=== PATIENT | male | born 1950 | race Caucasian/White ===

== ENCOUNTER 2016-09-04 14:46 | Emergency (ER) | payer OTHER, MEDICARE ==
[~2016-09-04] VITALS: Ht 175.3 cm; Wt 68.8 kg
[~2016-09-04 14:46] MED LIST: ASPEC325; DLN100; IBUP-1050; SODIUM CHLORIDE PO; VGR50
[2016-09-04 15:04] VITALS: TEMP 36.7; Ht 175.3 cm; Wt 68.8 kg
[2016-09-04] MEDS ORDERED: OXYCODONE HCL IR 5 MG TAB (IMMEDIATE RELEASE) PO STA (15:13)
[2016-09-04] MEDS ORDERED: DLN100 PO (15:45)
--- NOTE | 2016-09-04 15:46 | DIAGNOSTIC IMAGING REPORT ---
LEFT FOOT MIN 3 VIEWS ROUTINE CLINICAL HISTORY: Left foot pain status post trauma COMPARISON: September 2007 DISCUSSION: The bones are osteopenic. There are no acute fractures. There is minor chronic medial translation of the proximal phalanx of the great toe with respect to the first metatarsal. There are no erosive changes. IMPRESSION: No acute fractures. Mild chronic varus deformity at the level of the first metatarsal phalangeal joint Electronically signed by: Obie Pulido M.D. 09/04/2016 3:44 PM
[2016-09-04] MEDS ORDERED: VITATAB11 PO (15:47)
[2016-09-04] MEDS ORDERED: ATOR10TA82 PO (15:50)
[2016-09-04] MEDS ORDERED: VTMD PO (15:51)
--- NOTE | 2016-09-04 16:01 | EMERGENCY ROOM VISIT NOTE ---
History First contact with patient: 15:09 Chief Complaint: FOOT PAIN Stated Complaint: LT FOOT PAIN History of Present Illness The patient is a 66 year old male who presents to the Emergency Room with complaints of left lateral foot pain after slipping on ice and falling. The injury happened this morning, and the patient reports persistent pain, bruising and swelling. The patient has a prior history of left clubfoot and has undergone multiple surgeries. He denies any other injuries to his knee, hip or back. He denies hitting his head. He rates his discomfort a 5 out of 10 with weightbearing. Review of Systems 10 system review was performed and was negative except for pertinent positives and negatives as indicated in history of present illness Past Medical/Surgical History Medical Problems: (1) Clubfoot, congenital (2) Patellar dislocation (3) Peyronie's Disease Surgical Problems: (1) H/O clubfoot correction Family History Unremarkable Social History Smoking Status: Never Smoker Alcohol Use: occasionally Marital Status: Occupation Status: retired Current/Historical Medications Scheduled Atorvastatin (Lipitor), Unknown Dose PO DAILY Ergocalciferol (Vitamin D), 50,000 INTER.UNIT PO WK Phenytoin Sodium (Dilantin), 3 CAP PO BID Vitamins W/ Lipotropics (Lipoflavonoid), 1 TAB PO BID [Sodium Chloride], 2 GM PO BID Miscellaneous Medications Sildenafil Citrate (Viagra) Allergies Coded Allergies: No Known Allergies (Verified , 09/04/16) Physical Exam Vital Signs Date Time Temp Pulse Resp B/P Pulse Ox O2 Delivery O2 Flow Rate FiO2 09/04/16 15:04 36.7 95 20 111/63 97 Room Air Physical Exam CONSTITUTIONAL: Healthy and well nourished. Alert and oriented X 3 with positive affect. She does not appear in any acute distress. HEENT: Normocephalic, atraumatic. Pupils equal, round and reactive. NECK: Full active range of motion without discomfort. MUSCULOSKELETAL: Examination of the left foot shows lateral edema. He has tenderness over the base of the fifth metatarsal and lateral calcaneal region. No tenderness to palpation of the Achilles tendon, dorsal midfoot or remaining metatarsals/phalanges. Pedal pulses are intact.. Negative anterior draw. INTEGUMENTARY: No rash or other significant dermatologic conditions noted. NEUROLOGIC: Left foot and toes are sensory intact. Medical Decision & Procedures ER Provider Diagnostic Interpretation: My interpretation of left foot x-rays does not show any acute fractures or dislocations. Radiologist report is as follows: LEFT FOOT MIN 3 VIEWS ROUTINE CLINICAL HISTORY: Left foot pain status post trauma COMPARISON: September 2007 DISCUSSION: The bones are osteopenic. There are no acute fractures. There is minor chronic medial translation of the proximal phalanx of the great toe with respect to the first metatarsal. There are no erosive changes. IMPRESSION: No acute fractures. Mild chronic varus deformity at the level of the first metatarsal phalangeal joint Medications Administered Medications (Trade) Dose Ordered Sig/Heidi Route Start Time Stop Time Status Last Admin Dose Admin Oxycodone HCl (Roxicodone Immediate Rel Tab) 5 mg NOW STAT PO 09/04/16 15:13 09/04/16 15:15 DC 09/04/16 15:42 5 MG ED Course Patient history and physical exam were performed. Nurse's notes were reviewed. The patient was administered OxyIR 5 mg for pain. An ice pack was also applied. X-rays of the left foot were normal. The patient was encouraged to intermittently apply ice and elevate the foot for swelling and pain. Ibuprofen and Tylenol in alternating fashion as needed for additional baseline pain relief. The patient also has crutches with him as well, and was encouraged to use the crutches as needed to avoid limping. He was instructed to follow-up with orthopedics if symptoms are not improving within the next week. The patient was happy with plan of care, voice understanding of all discharge instructions, and rated his pain a 4 out of 10 at the time of discharge. The patient was also seen and examined by Dr. Vance, ED attending physician, who agrees with workup and plan of care. Impression Primary Impression: Strain of left foot Additional Impression: Fall due to slipping on ice or snow Departure Information Referrals Johnnie Vásquez III, M.D. (PCP) Patient Instructions A Signature Page, My [facility]
[2016-09-04 16:06] VITALS: BP 109/67; PULSE 90; O2SAT 97
== END 2016-09-04 16:08 | disposition home or self-care (01) ==
LOC: C.EDB 14:47 → C.EDD 16:08
DX: S96.912A Strain of unspecified muscle and tendon at ankle and foot level, left foot, initial encounter (principal); W00.0XXA Fall on same level due to ice and snow, initial encounter; Z79.899 Other long term (current) drug therapy

== ENCOUNTER 2020-10-13 16:36 | Inpatient (IN) ==
[2020-10-13] MEDS ORDERED: MoRPHine SULFATE 2 MG/ML CARP IV PRN (16:51)
--- NOTE | 2020-10-13 16:57 | Emergency Department Note ---
History of Present Illness General Chief Complaint: Fall Stated Complaint: FALL, L HIP PAIN Time Seen by Provider: 10/13/20 16:47 Source: patient Mode of arrival: EMS Limitations: no limitations History of Present Illness Provider complaint: fall This is a 70-year-old male who presents to the ED after a fall. The patient states that he was carrying a bucket filled with jesus manuel litter up the basement steps when he lost his balance and fell backwards down a few of the steps. He states that he landed on his buttock region and hurt his left hip. He denies loss of consciousness or hitting his head. He denies any neck or back pains. No chest pains. No other extremity pains. Only complains of left hip pain. H is pain is worse with movement. He was transported by EMS and IV fentanyl was given and this helped his symptoms somewhat. Home Medications Medication Instructions Recorded Confirmed Type Sildenafil Citrate (Viagra) #0 08/20/06 History SODIUM CHLORIDE 2 g PO BID #0 08/29/06 History ATORVASTATIN (LIPITOR) PO DAILY 90 Days #0 tab 09/04/16 History Ergocalciferol (Vitamin D) 50,000 inter.unit PO WK #0 09/04/16 History Phenytoin Sodium (Dilantin) 3 cap PO BID 30 Days #180 cap 09/04/16 History VITAMINS W/ LIPOTROPICS 1 tab PO BID #0 09/04/16 History (LIPOFLAVONOID) Allergies Allergy/AdvReac Type Severity Reaction Status Date / Time No Known Allergies Allergy Unknown Verified 09/04/16 15:43 Past Med/Surg History Social History Smoking Status: Current every day smoker Feels Safe at Home: Yes Review of Systems A total of 10 systems reviewed and were otherwise negative Physical Exam Vital Signs Vital Signs - 24 hr 10/13/20 16:44 Temperature 36.6 C Temperature Source Oral Pulse Rate 80 Respiratory Rate 18 Blood Pressure 118/83 Blood Pressure Mean 94 Pulse Oximetry 96 Oxygen Delivery Method Room Air Sepsis Recent Fever Within 48 Hours No Sepsis New/Unexplained Change in Mental Status No Sepsis Action Taken by Nursing No Action Required CONSTITUTIONAL/VITAL SIGNS: Reviewed / noted above. GENERAL: Non-toxic in appearance. INTEGUMENTARY: Warm, dry, and [place]. HEAD: Normocephalic. EYES: without scleral icterus or trauma. ENT/OROPHARYNX: clear and moist. LYMPHADENOPATHY/NECK: Is supple without lymphadenopathy or meningismus. RESPIRATORY: Lungs clear and equal. CARDIOVASCULAR: Regular rate and rhythm. GI/ABDOMEN: Soft and nontender. No organomegaly or pulsatile mass. No rebound or guarding. Normal bowel sounds. EXTREMITIES: Warm and well perfused. No shortening or rotation of the left lower extremity but there is discomfort in the left hip with movement. BACK: No CVA tenderness. NEUROLOGICAL: Intact without focal deficits. PSYCHIATRIC: normal affect. MUSCULOSKELETAL: Normally developed with good muscle tone. TRIAGE NURSING DOCUMENTATION REVIEWED. Medical Decision Making Differential Diagnosis Differential includes close head injury, intracranial bleed, facial trauma, cervical spine trauma, chest and thoracic trauma, abdominal and intra-abdominal trauma, spine neurologic trauma, extremity trauma. Medical Records Attestation: I reviewed the patient's medical records. Home Medications Current Medication List: was personally reviewed by me Laboratory Data Attestation: I reviewed the patient's lab results. Result diagrams: 10/13/20 17:00 10/13/20 17:00 Lab Results 10/13/20 10/13/20 10/13/20 Range/Units 17:00 17:00 17:00 WBC 10.37 (4.8-10.8) K/uL RBC 4.18 L (4.7-6.1) M/uL Hgb 13.3 L (14.0-18.0) g/dL Hct 38.0 L (42-52) % MCV 90.9 (80-100) fL MCH 31.8 (25-34) pg MCHC 35.0 (32-36) g/dL RDW Std Deviation 41.7 (36.4-46.3) fL RDW Coeff of Nnamdi 12.5 (11.5-14.5) % Plt Count 166 (130-400) K/uL MPV 8.2 (7.4-10.4) fL Immature Gran % (Auto) 0.3 % Neut % (Auto) 69.9 % Lymph % (Auto) 20.8 % Jay % (Auto) 5.7 % Eos % (Auto) 3.1 % Baso % (Auto) 0.2 % Neut # (Auto) 7.25 H (1.4-6.5) K/uL Lymph # (Auto) 2.16 (1.2-3.4) K/uL Jay # (Auto) 0.59 (0.11-0.59) K/uL Eos # (Auto) 0.32 (0-0.5) K/uL Baso # (Auto) 0.02 (0-0.2) K/uL Immature Gran # (Auto) 0.03 H (0.00-0.02) K/uL PT 10.2 (9.0-12.0) Seconds INR 1.0 (0.9-1.1) APTT 26.0 (21.0-31.0) Seconds PTT Ratio 1.0 Sodium 139 (136-145) mmol/L Potassium 3.4 L (3.5-5.1) mmol/L Chloride 105 (98-107) mmol/L Carbon Dioxide 26 (21-32) mmol/L Anion Gap 8.0 (3-11) BUN 9 (7-18) mg/dl Creatinine 0.69 (0.6-1.4) mg/dl Est Cr Clr Drug Dosing 101.0 ml/min Est GFR ( Amer) 112.3 Est GFR (Non-Af Amer) 96.9 BUN/Creatinine Ratio 13.6 (10-20) Glucose 94 (70-99) mg/dl Calcium 8.2 L (8.5-10.1) mg/dl Imaging Data Radiologist's Impression: XR hip LT min 2V CLINICAL HISTORY: Fall. Left hip pain. COMPARISON STUDY: None. FINDINGS: Nondisplaced intertrochanteric fracture within the proximal left femur. The visualized pelvic bones are intact. No dislocation. IMPRESSION: Nondisplaced intertrochanteric fracture within the proximal left femur. XR chest 1V portable HISTORY: Fall. Left hip injury. COMPARISON: None. FINDINGS: There are low lung volumes. No pneumothorax. No pleural effusions. The heart is normal in size. There is mild diffuse interstitial thickening. This may be chronic. Small linear scarlike density within the left midlung zone. No evidence for pulmonary edema. No focal lung consolidations to suggest pneumonia. A 5 mm nodular density within the right midlung zone favors a calcified granuloma given the density. Slight mediastinal prominence is likely due to the AP portable technique. IMPRESSION: Low lung volumes with mild diffuse interstitial thickening. This could be due to the low lung volumes or represent mild chronic change. ECG Data Attestation: I personally reviewed and interpreted this ECG as follows: Indication: other (Hip fx) Rate (beats per minute): 65 Rhythm: sinus with SA Findings: no PVC, no ST elevation and no prolonged QT MDM Narrative Patient presents with left hip injury after fall. Details listed above. Vital signs are stable. The patient's x-ray shows a nondisplaced intertrochanteric left hip fracture. EKG shows sinus rhythm. Chest x-ray was clear. CBC and chemistry panel did not show acute process. The patient will be seen by the hospitalist for further inpatient evaluation and care. Impression & Plan Closed hip fracture Discharge Plan Visit Data Chief Complaint: Fall Stated Complaint: FALL, L HIP PAIN ED Provider: Wade Crawford Discharge Problem: Closed hip fracture Patient Disposition: Being Evaluated by Hospitalist Forms Stand Alone Forms: My [facility] [employer] ([employer]) Prescriptions Prescriptions: No Action Sildenafil Citrate (Viagra) 50 MG tablet Qty: 0 RF: 0 SODIUM CHLORIDE 2 2 g PO BID Qty: 0 RF: 0 Phenytoin Sodium (Dilantin) 100 MG capsule 3 cap PO BID 30 Days Qty: 180 RF: 2 VITAMINS W/ LIPOTROPICS (LIPOFLAVONOID) 1 TAB tablet 1 tab PO BID Qty: 0 RF: 0 ATORVASTATIN (LIPITOR) 10 MG tablet PO DAILY 90 Days Qty: 0 RF: 3 Ergocalciferol (Vitamin D) 50,000 INTERUNIT capsule 50,000 inter.unit PO WK Qty: 0 RF: 0 Referrals Referrals: Johnnie Vásquez MD [Primary Care Provider] - Discharge Problem: Closed hip fracture Qualifiers: Encounter type: initial encounter Laterality: left Qualified Code(s): S72.002A - Fracture of unspecified part of neck of left femur, initial encounter for closed fracture
--- NOTE | 2020-10-13 17:19 | XRay Report ---
XR hip LT min 2V CLINICAL HISTORY: Fall. Left hip pain. COMPARISON STUDY: None. FINDINGS: Nondisplaced intertrochanteric fracture within the proximal left femur. The visualized pelv ic bones are intact. No dislocation. IMPRESSION: Nondisplaced intertrochanteric fracture within the proximal left femur. ACT 112: Negative or not required by law. Electronically signed by: Willie Macdonald M.D. 10/13/2020 5:17 PM
[2020-10-13 17:21] LABS: Basophils # (auto) 0.02 K/uL (0-0.2); Basophils % (auto) 0.2 %; Eosinophils # (auto) 0.32 K/uL (0-0.5); Eosinophils % (auto) 3.1 %; Hemoglobin 13.3 g/dL (14.0-18.0); Immature Granulocytes # (auto) 0.03 K/uL (0.00-0.02); Immature Granulocytes % (auto) 0.3 %; Lymphocytes # (auto) 2.16 K/uL (1.2-3.4); Lymphocytes % (auto) 20.8 %; Mean Corpuscular Hemoglobin 31.8 pg (25-34); Mean Corpuscular Volume 90.9 fL (80-100); Mean Platelet Volume 8.2 fL (7.4-10.4); Monocytes # (auto) 0.59 K/uL (0.11-0.59); Monocytes % (auto) 5.7 %; Neutrophils # (auto) 7.25 K/uL (1.4-6.5); Neutrophils % (auto) 69.9 %; Platelet Count 166 K/uL (130-400); RDW Coefficient of Variation 12.5 % (11.5-14.5); RDW Standard Deviation 41.7 fL (36.4-46.3); Red Blood Count 4.18 M/uL (4.7-6.1); White Blood Count 10.37 K/uL (4.8-10.8)
--- NOTE | 2020-10-13 17:21 | XRay Report ---
XR chest 1V portable HISTORY: Fall. Left hip injury. COMPARISON: None. FINDINGS: There are low lung volumes. No pneumothorax. No pleural effusions. The heart is normal in s ize. There is mild diffuse interstitial thickening. This may be chronic. Small linear scarlike densit y within the left midlung zone. No evidence for pulmonary edema. No focal lung consolidations to sugg est pneumonia. A 5 mm nodular density within the right midlung zone favors a calcified granuloma give n the density. Slight mediastinal prominence is likely due to the AP portable technique. IMPRESSION: Low lung volumes with mild diffuse interstitial thickening. This could be due to the low lung volumes or represent mild chronic change. ACT 112: Negative or not required by law. Electronically signed by: Willie Macdonald M.D. 10/13/2020 5:19 PM
[2020-10-13 17:33] LABS: Prothrombin Time 10.2 Seconds (9.0-12.0)
[2020-10-13 17:38] LABS: BUN Creatinine Ratio 13.6 (10-20); Calcium 8.2 mg/dl (8.5-10.1); Est GFR (African American) 112.3; Est GFR (Non-African American) 96.9; Potassium 3.4 mmol/L (3.5-5.1)
[2020-10-13 18:40] LABS: Magnesium 1.9 mg/dl (1.8-2.4)
--- NOTE | 2020-10-13 19:07 | History & Physical Report ---
Date of Service October 13, 2020 Assessment & Plan (1) Fracture of femur, left, closed: Pt is 70 y/o M with PMH traumatic brain injury, SIADH, HLD, seizure disorder presented to ER with c/o mechanical fall and left hip pain. XRAY:Nondisplaced intertrochanteric fracture within the proximal left femur. Bedrest NPO midnight Morphine prn pain Ortho consult, ER provider contacted AM labs (2) Seizure disorder: H/O seizure disorder. Pt reports >20 years since last seizure. Is to take Dilantin 300mg BID, however pt only takes once daily and reports taking 400mg daily. Follows with Dr Ellis and last office note stated pt been taking medication like this for long time. Obtain Dilantin level Continue Dilantin as pt has been taking for now pending Dilantin levels (3) Hypokalemia: K: 3.4. 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 See addendum History of Present Illness Chief Complaint: Fall and left Hip pain Primary Care Provider: Johnnie Vásquez MD Pt is 70 y/o M with PMH traumatic brain injury, SIADH, HLD, seizure disorder presented to ER with c/o fall and left hip pain. Prior to arrival pt was carrying 40lb bucket of cat litter up stairs and reports lost his balance and fell backwards. Denies hitting head. Denies dizziness, syncope, CP, SOB, neck pain. C/O left hip pain and was unable to ambulate after fall. Denies any other injury or complaint. Denies fever/chills, diaphoresis, N/V/D/C, UMANZOR, new vision changes, orthopnea, palpitations, cough, sore throat, choking, otalgia, rhinorrhea, abdominal pain, paresthesias, weakness, extremity edema, rashes, urinary symptoms. Allergies Allergy/AdvReac Type Severity Reaction Status Date / Time No Known Allergies Allergy Unknown Verified 10/19/20 11:18 Home Medications Medication Instructions Recorded Confirmed Type atorvastatin 80 mg PO DAILY 10/13/20 10/19/20 History cholecalciferol (vitamin D3) 25 mcg PO DAILY 10/13/20 10/19/20 History phenytoin sodium extended 400 mg PO DAILY 10/13/20 10/19/20 History [Dilantin Extended] sodium chloride 2 g PO DAILY 10/13/20 10/19/20 History vitamins-lipotropics 2 tab PO DAILY 10/13/20 10/19/20 History bisacodyl 10 mg [place] DAILY PRN #0 ea 10/17/20 10/19/20 Rx enoxaparin 40 mg SUBCUT Q24H 28 Days #0 ml 10/17/20 10/19/20 Rx docusate sodium 100 mg PO BID 10/19/20 10/19/20 History magnesium hydroxide 2,400 mg PO DAILY 10/19/20 10/19/20 History multivitamin 1 tab PO DAILY 10/19/20 10/19/20 History polyethylene glycol 3350 [Miralax] 17 g PO QDL 10/19/20 10/19/20 History sennosides-docusate sodium 1 tab-cap PO QDL 10/19/20 10/19/20 History [Senna-S] sodium phosphates [Fleet Enema] 133 ml [place] DAILY 10/19/20 10/19/20 History Past Med/Surg History Medical History (Updated 10/19/20 @ 15:28 by Veronique Reyes PA-C) History of head injury History of traumatic brain injury h/o surgery HLD (hyperlipidemia) Seizure disorder SIADH (syndrome of inappropriate ADH production) Surgical History (Updated 10/19/20 @ 15:28 by Veronique Reyes PA-C) H/O clubfoot correction History of brain surgery / to TBI after falling from 2 story building off scaffolding in 2001 repair of skull fracture, jaw, cheek, upper orbital and right ear repair Hx of nasal septoplasty Family History (Updated 10/19/20 @ 15:26 by Veronique Reyes PA-C) Mother Lung cancer Father Myocardial infarction, Onset Age: 62 Grandfather (Paternal) Myocardial infarction, Onset Age: 50 Other Cancer Coronary heart disease Social History Smoking Status: Never smoker Second Hand Exposure: No; Hx Alcohol Use: Yes Alcohol type: beer Hx Substance Use: No Preferred Language: Gren[place] Communication Ability: Effective Advertising Strategist Required: No Beliefs That Will Affect Care: None Current Living Situation: Spouse Feels Safe at Home: Yes Assistive Devices: Walker Review of Systems Review of Systems: All systems reviewed & are unremarkable except as noted in HPI & below Physical Exam Physical Exam: General: no distress, WDWN Head: normocephalic, atraumatic Eyes: Left eye PERRL, EOM's intact, Right eye: ptosis, limited EOM (chronic) conjunctiva non-injected, anicteric ENT: normal inspection external ears, nose, mucous membranes moist Neck: supple, trachea midline, non-tender, ROM intact Lungs: clear, no respiratory distress, no wheezing/rhonchi/rales CV: RRR, no murmur, no pretibial edema Abd: normal BS, soft, non-tender Ext: LLE: +left leg shortened and externally rotated, sensation to light touch intact, distal pulses intact; remaining extremities non-tender, ROM intact Neuro: A&O x 3, no focal deficits noted, normal affect Skin: warm, dry Results & Data Results & Data ([facility]) Vital Signs (Past 12 Hours) Vital Signs Temp Pulse Resp BP Pulse Ox 10/13/20 18:30 93 H 16 118/75 95 10/13/20 16:44 36.6 C 80 18 118/83 96 Laboratory Results Short CBC 10/13/20 10/13/20 Range/Units 17:00 17:00 WBC 10.37 (4.8-10.8) K/uL Hgb 13.3 L (14.0-18.0) g/dL Hct 38.0 L (42-52) % Plt Count 166 (130-400) K/uL Potassium 3.4 L (3.5-5.1) mmol/L BMP 10/13/20 17:00 Sodium 139 Potassium 3.4 L Chloride 105 Carbon Dioxide 26 BUN 9 Creatinine 0.69 Glucose 94 Calcium 8.2 L Diagnostic Findings LEFT HIP XRAY: IMPRESSION: Nondisplaced intertrochanteric fracture within the proximal left femur. CXR: IMPRESSION: Low lung volumes with mild diffuse interstitial thickening. This could be due to the low lung volumes or represent mild chronic change. Supervising Physician Co-Signing Physician Notes Pt seen and examined by me, care coordinated with Rosemary Jordan PA-C, pls refer to her note above for further detail. Pt is a 70 y/o M with PMH traumatic brain injury, SIADH, HLD, seizure disorder who presents after a fall and left hip pain. Pt fell as he was carrying 40lb bucket of cat litter up stairs and lost his balance and fell backwards. Denies hitting head. Denies dizziness, syncope, CP, SOB, neck pain. Denies fever/chills,UMANZOR. Currently pt is laying in bed in NAD, able to answer questions appropriately. Heart sounds regular, lungs CTAB. Abdomen soft, nontender, nondistended + bowel sounds. LLE shortened and externally rotated, no sensory loss, good pulses. Skin is warm, well perfused. Orthopedics service consulted for left closed hip hx repair. Closely monitor VS, AM labs. Dilantin level. Mehul Partida MD
[2020-10-13] MEDS ORDERED: POTASSIUM CHLORIDE CRTAB 20 MEQ TABCR PO STA (19:13)
[2020-10-13] MEDS ORDERED: POTASSIUM CHLORIDE 10 MEQ TABCR PO ONE (19:27)
[2020-10-13] MEDS ORDERED: ONDANSETRON INJ 2 MG/ML 2 ML VIAL IV PRN (21:14)
[2020-10-13] MEDS ORDERED: NALOXONE HCL 0.4 MG/1 ML VIAL/CARP IV PRN (21:14)
[2020-10-13] MEDS ORDERED: MAGNESIUM HYDROXIDE SUSP 30 ML UDC PO PRN (21:14)
[2020-10-13] MEDS ORDERED: bisacodyL 10 MG SUPP PR PRN (21:14)
[2020-10-13] MEDS: MoRPHine SULFATE 2 MG/ML CARP IV PRN (23:31)
[2020-10-13] MEDS: DOCUSATE SODIUM/SENNA 50/8.6MG TAB PO SCH (23:31)
[2020-10-13] MEDS: LACTATED RINGER'S 1,000 ML IV SCH (23:31)
[2020-10-14] MEDS ORDERED: ceFAZolin 2000MG 2,000 MG/15 ML SYR IV SCH (06:00)
[2020-10-14 06:22] LABS: Appearance Urine Clear (Clear); Bilirubin Urine Negative (Negative); Blood Urine Negative (Negative); Color Urine Yellow; Glucose Urine UA Negative (Negative); Ketones Urine Trace (Negative); Leukocyte Esterase Urine Negative (Negative); Nitrite Urine Negative (Negative); Protein Urine Negative (Negative); Specific Gravity Urine 1.005 (1.000-1.030); Urobilinogen Urine Negative (Negative)
[2020-10-14 06:27] LABS: Hematocrit (blood only) 36.2 % (42-52); Hemoglobin 12.7 g/dL (14.0-18.0); Mean Corpuscular Hemoglobin 31.9 pg (25-34); Mean Corpuscular Hgb Conc 35.1 g/dL (32-36); Mean Platelet Volume 8.4 fL (7.4-10.4); Platelet Count 184 K/uL (130-400); RDW Coefficient of Variation 12.6 % (11.5-14.5); RDW Standard Deviation 42.2 fL (36.4-46.3); Red Blood Count 3.98 M/uL (4.7-6.1); White Blood Count 7.36 K/uL (4.8-10.8)
[2020-10-14 07:04] LABS: BUN Creatinine Ratio 13.8 (10-20); Calcium 8.4 mg/dl (8.5-10.1); Creatinine Clr Calc Pharmacy 100.3 ml/min; Est GFR (African American) 114.3; Est GFR (Non-African American) 98.6; Magnesium 2.2 mg/dl (1.8-2.4); Potassium 4.2 mmol/L (3.5-5.1)
--- NOTE | 2020-10-14 08:41 | XRay Report ---
XR femur LT 2V routine CLINICAL HISTORY: Left hip fracture. COMPARISON STUDY: Left hip 10/13/2020. FINDINGS: Redemonstration of a nondisplaced intertrochanteric fracture the proximal left femur. No di slocation. The mid to distal shaft of the left femur is intact. No soft tissue swelling. IMPRESSION: No change in the nondisplaced intertrochanteric fracture of the proximal left femur. ACT 112: Negative or not required by law. Electronically signed by: Willie Macdonald M.D. 10/14/2020 8:40 AM
--- NOTE | 2020-10-14 08:41 | Electrocardiogram Report ---
Test Reason : Blood Pressure : / mmHG Vent. Rate : 065 BPM Atrial Rate : 065 BPM P-R Int : 200 ms QRS Dur : 080 ms QT Int : 404 ms P-R-T Axes : 071 050 063 degrees QTc Int : 420 ms Poor data quality, interpretation may be adversely affected Normal sinus rhythm with sinus arrhythmia Normal ECG When compared with ECG of 22-OCT-2000 07:41, No significant change was found Confirmed by Lv Parsons ([id number]) on 10/14/2020 8:41:19 AM Referred By: REFERRED SELF Confirmed By:Lv Parsons
--- NOTE | 2020-10-14 08:49 | Orthopedic Consultation ---
Date of Consultation October 14, 2020 Assessment & Plan (1) Closed hip fracture: Left minimally displaced intertrochanteric hip fracture. Patient will require a trochanteric femoral nail. Case discussed with [facility] physicians. We will put him on the surgical schedule for today for planned left TFN. Supervising Physician Co-Signing Physician Notes Patient seen in preoperative holding, agree with above assessment and plan Physical exam left lower extremity is neurovascular sensory intact grossly, +2 dorsalis pedis pulse, compartment soft nontender, skin overlying left hip clean dry and intact The patient is a 70yo male with nondisplaced left intertrochanteric hip fracture sustained after a fall from standing height. The patient was medically stabilized on 10/14/2020. I indicated the patient for left hip cephalomedullary nail. The patient was informed of the risks and benefits of surgery, which include but not limited to infection, bleeding, blood clots, damage to nerves, vessels, bone and soft tissue, dislocation, leg length discrepancy, malunion, nonunion, failure of the implants, need for additional surgery and . The patient chose to proceed with surgical intervention and informed consent was obtained. History of Present Illness Reason for Consultation: Left intertrochanteric hip fracture Attending Physician: Jamaal Alatorre MD History of Present Illness 70-year-old white male who states that while he was carrying a box that was fairly heavy up his stairs, he ended up losing his balance and falling down the steps. He did not lose consciousness. He denies any lightheadedness, chest pain, shortness of breath prior to or after the fall. After the fall he had immediate pain in his left hip and groin and was unable to ambulate well. He was brought to the emergency room. He was seen by the staff and x-rays were taken. It was found that he had a minimally displaced left intertrochanteric hip fracture. He was admitted by the [facility] service and we were asked to take care of his hip fracture. Currently he is awake and alert and answers questions appropriately. Pain control is adequate at this time. Allergies Allergy/AdvReac Type Severity Reaction Status Date / Time No Known Allergies Allergy Unknown Verified 10/13/20 19:15 Home Medications Medication Instructions Recorded Confirmed Type atorvastatin 80 mg PO DAILY 10/13/20 10/13/20 History cholecalciferol (vitamin D3) 25 mcg PO DAILY 10/13/20 10/13/20 History phenytoin sodium extended 400 mg PO DAILY 10/13/20 10/13/20 History [Dilantin Extended] sodium chloride 2 g PO DAILY 10/13/20 10/13/20 History vitamins-lipotropics 2 tab PO DAILY 10/13/20 10/13/20 History [Lipoflavonoid] Patient History Medical History History of head injury History of traumatic brain injury h/o surgery HLD (hyperlipidemia) Seizure disorder SIADH (syndrome of inappropriate ADH production) Surgical History H/O clubfoot correction Family History Other Cancer Coronary heart disease Social History Smoking Status: Never smoker Second Hand Exposure: No; Do You Dip or Chew Tobacco: No; Tobacco Cessation Education Requested by Patient: No Hx Alcohol Use: Yes Alcohol type: beer Hx Substance Use: No Preferred Language: French Communication Ability: Effective Rn Transplant Required: No Beliefs That Will Affect Care: None Current Living Situation: Spouse Other Information That Helps Us Care for You: No Feels Safe at Home: Yes Safety Concerns: Feels Safe At This Time Assistive Devices: None Assistive Devices Comment: does have a walker at home but doesn't use Review of Systems Review of Systems: All systems reviewed & are unremarkable except as noted in HPI & below Physical Exam Physical Exam: On exam, the patient is a 70-year-old white male who appears a little younger than his stated age. He is alert and oriented x3. No acute distress, pleasant and cooperative. Examination of the left lower extremity shows a shortened and externally rotated extremity compared to the right. He does have pain on palpation of the lateral hip at this time but no overt abrasions noted. He is nontender at the left knee on palpation and range of motion is deferred secondary to left hip fracture. He is capable of moving his toes and has some limited range of motion of his left ankle secondary to history of clubfoot. Sensation is intact. Right lower extremity is unaffected and he is nontender at the hip knee and ankle. Upper extremities are unaffected and he is nontender at the shoulders elbows and wrist. Range of motion is within normal limits. Distal pulses are equal bilaterally of the upper and lower extremities. There is no gross motor or sensory loss seen at this time. Results & Data ([facility]) Vital Signs (Past 12 Hours) Vital Signs Temp Pulse Resp BP Pulse Ox 10/14/20 07:28 37.0 C 89 16 104/60 93 10/13/20 22:48 36.6 C 101 H 18 125/74 95 10/13/20 20:55 36.4 C L 90 18 132/70 97 Diagnostic Findings Patient: RIO BLOUNT Date: 10/13/20MR#: [id number]: [id number] LOCUSNeno STAcct ID:[id number]: Date: 1950[facility] Zip: [place], [place] [address]Ued: 70Location: EDSex: MRoom/Bed:Att Phy:Diagnosis: FALL, L HIP PAINPri Phy: Johnnie Vásquez, III, MDService Date: 10/13/20Fam Phy:Interpreting Phy: [facility]onald [facility] Ordering Phy: Wade Crawford D.O. cc: ~ XR hip LT min 2V CLINICAL HISTORY: Fall. Left hip pain. COMPARISON STUDY: None. FINDINGS: Nondisplaced intertrochanteric fracture within the proximal left femur. The visualized pelvic bones are intact. No dislocation. IMPRESSION: Nondisplaced intertrochanteric fracture within the proximal left femur. ACT 112: Negative or not required by law. (1) Closed hip fracture Encounter type: initial encounter Laterality: left Qualified Code(s): S72.002A - Fracture of unspecified part of neck of left femur, initial encounter for closed fracture
[2020-10-14] MEDS: PHENYTOIN SODIUM ER 100 MG CAP PO SCH (09:19)
[2020-10-14] MEDS: ATORVASTATIN 40 MG TAB PO SCH (09:20)
[2020-10-14] MEDS: SODIUM CHLORIDE 1 GM TABLET PO SCH (09:20)
[2020-10-14] MEDS: MoRPHine SULFATE 2 MG/ML CARP IV PRN ×2 (11:49→15:54)
[2020-10-14] MEDS: LACTATED RINGER'S 1,000 ML IV SCH (12:32)
--- NOTE | 2020-10-14 14:37 | Hospitalist Progress Note ---
Date of Service October 14, 2020 Assessment & Plan (1) Fracture of femur, left, closed: Patient is a 70yr male with H/O Traumatic brain injury, SIADH, HLD, seizure disorder presented to ER with c/o mechanical fall and left hip pain. Left Femur Fracture Mechanical Fall Hip X ray:Nondisplaced intertrochanteric fracture within the proximal left femur. 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 DVT Px: SCDs Re: Planned for surgery Code Status Full Code Disposition PT/OT prior to discharge Admission and Anticipated Discharge Date Admission Date: October 13, 2020 Subjective Patient is seen and examined at bedside Complains of left hip pain, 5/10 intensity which worsens with movement Denies chest pain, dyspnea, dizziness, nausea, abdominal pain Plan for left hip surgery today Review of Systems Review of Systems: All systems reviewed & are unremarkable except as noted in HPI & below Physical Exam Physical Exam: Physical Exam: Vitals signs as noted above General Appearance:Thin, frail, no apparent distress Head: normocephalic, Atraumatic Eyes: normal inspection, EOMI, Right eye blindness-chronic Neck: supple, Trachea midline Respiratory/Chest: Normal breath sounds, CTA, No accessory muscle use Cardiovascular: S1, S2, No murmur Abdomen/GI:Soft, Non tender, Bowel sounds present Extremities/Musculoskeletal:normal inspection, no edema, L hip decreased ROM, externally rotated Neurologic/Psych:AAOX3, grossly no focal neurological deficits Skin: normal color, warm Results & Data Results & Data ([facility]) Vital Signs (Past 12 Hours) Vital Signs Temp Pulse Resp BP Pulse Ox 10/14/20 07:28 37.0 C 89 16 104/60 93 Laboratory Results Short CBC 10/13/20 10/14/20 Range/Units 17:00 06:09 WBC 10.37 7.36 (4.8-10.8) K/uL Hgb 13.3 L 12.7 L (14.0-18.0) g/dL Hct 38.0 L 36.2 L (42-52) % Plt Count 166 184 (130-400) K/uL BMP 10/13/20 10/14/20 17:00 06:09 Sodium 139 141 Potassium 3.4 L 4.2 D Chloride 105 110 H Carbon Dioxide 26 24 BUN 9 9 Creatinine 0.69 0.66 Glucose 94 98 Calcium 8.2 L 8.4 L Urine 10/14/20 Range/Units 05:00 Urine Color Yellow Urine Appearance Clear (Clear) Urine pH 7.0 (4.5-7.5) Ur Specific [place] 1.005 (1.000-1.030) Urine Protein Negative (Negative) Urine Glucose (UA) Negative (Negative)
--- NOTE | 2020-10-14 15:22 | Anesthesiology Consultation ---
Date of Service October 14, 2020 Assessment & Plan Chart Review Chart Review: Acceptable Risk for Surgery and Patient NOT seen in Pre Admission Testing Consults Requested none ASA ASA3 History Surgery Operation Date: 10/14/20 10:10 Proposed Procedures p Left Synthes Troch nail - Mich Arango DO Height/Weight Height: 5 ft 9 in Weight: 67.1 kg Allergies Allergy/AdvReac Type Severity Reaction Status Date / Time No Known Allergies Allergy Unknown Verified 10/13/20 19:15 Medications Home Medications Medication Instructions Recorded Confirmed Last Taken atorvastatin 80 mg PO DAILY 10/13/20 10/13/20 10/13/20 cholecalciferol (vitamin D3) 25 mcg PO DAILY 10/13/20 10/13/20 10/13/20 phenytoin sodium extended 400 mg PO DAILY 10/13/20 10/13/20 10/13/20 [Dilantin Extended] sodium chloride 2 g PO DAILY 10/13/20 10/13/20 10/13/20 vitamins-lipotropics 2 tab PO DAILY 10/13/20 10/13/20 10/13/20 [Lipoflavonoid] Active Medications Generic Name Dose Route Start Last Admin Trade Name Freq PRN Reason Stop Dose Admin Atorvastatin Calcium 80 mg 10/14/20 09:00 10/14/20 09:20 Atorvastatin 40 Mg Tab PO 11/13/20 08:59 80 mg DAILY MARITO Administration Lactated Ringer's 1,000 mls @ 80 mls/hr 10/14/20 00:01 10/14/20 12:32 Lr IV 10/15/20 01:00 80 mls/hr .[id number] MARITO Administration Morphine Sulfate 2 mg 10/13/20 21:14 10/14/20 11:49 Morphine Sulfate 2 Mg/Ml Carp IV 10/27/20 21:13 2 mg Q3H PRN Administration Pain (1,2,3,4,5) & Pre PT Phenytoin Sodium 400 mg 10/14/20 09:00 10/14/20 09:19 Phenytoin Sodium Er 100 Mg Cap PO 11/13/20 08:59 400 mg DAILY MARITO Administration Senna/Docusate Sodium 2 tab 10/13/20 22:00 10/13/20 23:31 Docusate Sodium/Senna 50/8.6mg Tab PO 11/12/20 21:59 2 tab HS MARITO Administration Sodium Chloride 2 gm 10/14/20 09:00 10/14/20 09:20 Sodium Chloride 1 Gm Tablet PO 11/13/20 08:59 2 gm DAILY MARITO Administration NPO Date Last Intake of Fluids: 10/14/20 Time Last Intake of Fluids: 00:00 Date Last Intake of Solids: 10/21/20 Time Last Intake of Solids: 00:00 Past Medical History Medical History History of head injury History of traumatic brain injury h/o surgery HLD (hyperlipidemia) Seizure disorder SIADH (syndrome of inappropriate ADH production) Exercise / Class Metabolic Activity II 4-5 Yardwork/Stairs/Walk up hill Past Family History Family History Other Cancer Coronary heart disease Past Surgical History Surgical History H/O clubfoot correction Past Anesthesia History No Hx of Anesthesia Complications and No Family Hx of Anesthesia Complications History of PONV No Hx of PONV and No Hx of Motion Sickness Social History Smoking Status: Never smoker Do You Dip or Chew Tobacco: No Hx Alcohol Use: Yes Alcohol type: beer alcohol intake frequency: 0-2 drinks per day Hx Substance Use: No substance use type: does not use Physical Exam Vital Signs Last Vital Signs Temp 36.7 C 10/14/20 15:01 Pulse 82 10/14/20 15:01 Resp 18 10/14/20 15:01 BP 118/71 10/14/20 15:01 Pulse Ox 92 10/14/20 15:01 Testing Laboratory Results 10/14/20 06:09 10/14/20 06:09 PT 10.2 Seconds (9.0-12.0) 10/13/20 17:00 INR 1.0 (0.9-1.1) 10/13/20 17:00 APTT 26.0 Seconds (21.0-31.0) 10/13/20 17:00 Urine Color Yellow 10/14/20 05:00 Urine Appearance Clear (Clear) 10/14/20 05:00 Urine pH 7.0 (4.5-7.5) 10/14/20 05:00 Ur Specific [place] 1.005 (1.000-1.030) 10/14/20 05:00 Urine Protein Negative (Negative) 10/14/20 05:00 Urine Glucose (UA) Negative (Negative) 10/14/20 05:00 Urine Ketones Trace (Negative) H 10/14/20 05:00 Urine Nitrite Negative (Negative) 10/14/20 05:00 Ur Leukocyte Esterase Negative (Negative) 10/14/20 05:00 Blood Type B Positive 10/13/20 17:26 Antibody Screen NEGATIVE 10/13/20 17:26 Electrocardiogram Date: 10/13/20 Findings: + NSR @ (at 66) Chest X-Ray Date: 10/13/20 Findings: + NAD
[2020-10-14] MEDS ORDERED: ONDANSETRON INJ 2 MG/ML 2 ML VIAL ONE (15:44)
[2020-10-14] MEDS ORDERED: MIDAZOLAM HCL 1 MG/ML 2ML VIAL ONE ×2 (15:44)
[2020-10-14] MEDS ORDERED: LIDOCAINE HCL 2% 2 ML VIAL/AMP(20MG/ML) INFIL ONE (15:44)
[2020-10-14] MEDS ORDERED: PROPOFOL IV EMULSION 10 MG/ML 20 ML VIAL IV ONE (15:44)
--- NOTE | 2020-10-14 16:39 | History & Physical Bridge Note ---
Date of Service October 14, 2020 History & Physical Bridge Note I have examined the patient, reviewed the History & Physical and in the interval since the performance of the History & Physical I have noted the following changes of clinical significance: no changes noted
[2020-10-14] MEDS ORDERED: EPINEPHrine INJ 1 MG/ML AMP ONE (16:43)
[2020-10-14] MEDS ORDERED: BUPIVACAINE 0.5 % 5 MG/1 ML MPF 30ML VIAL ONE (16:43)
[2020-10-14] MEDS ORDERED: BUPIVACAINE 0.5 % 5 MG/1 ML PF 10ML VIAL ONE (16:43)
[2020-10-14] MEDS ORDERED: fentaNYL citrate 100 MCG/2 ML VIAL ONE ×2 (16:59→17:36)
[2020-10-14] MEDS ORDERED: ePHEDrine sulfate 50 MG/ML AMP IV PRN (17:20)
[2020-10-14] MEDS ORDERED: ONDANSETRON INJ 2 MG/ML 2 ML VIAL IV PRN (17:20)
[2020-10-14] MEDS ORDERED: NALOXONE HCL 0.4 MG/1 ML VIAL/CARP IV PRN ×2 (17:20→18:41)
[2020-10-14] MEDS ORDERED: FLUMAZENIL 0.1 MG/1 ML 10 ML VIAL IV PRN (17:20)
[2020-10-14] MEDS ORDERED: LABETALOL HCL IV 5 MG/ML 20ML IV PRN (17:20)
[2020-10-14] MEDS ORDERED: PROMETHAZINE HCL 12.5 MG in SODIUM CHLORIDE 0.9% 50 ML IV PRN (17:20)
[2020-10-14] MEDS ORDERED: ATROPINE SULFATE 0.1 MG/ML 10ML SYR IV PRN (17:20)
--- NOTE | 2020-10-14 18:11 | Fluoroscopy Report ---
INTRAOPERATIVE RADIOGRAPHS CLINICAL HISTORY: Open reduction and internal fixation of the left femur. Fluoroscopy time: 57 seconds. FINDINGS: 4 spot fluoroscopic views of the left femur are correlated with radiographs dated 10/14/2020 . Intertrochanteric and intramedullary nails have been placed transfixing an intertrochanteric fractu re. Near-anatomic alignment is restored. A single cortical lag screw transfixes the distal end of the intramedullary nail. Overlying soft tissue edema is noted. IMPRESSION: Intraoperative images from open reduction and internal fixation of a left femoral fractur e as above. Electronically signed by: Marcelino Ramirez M.D. 10/14/2020 6:10 PM
--- NOTE | 2020-10-14 18:14 | Post Operative Brief Note ---
Immediate Post Op Note v1 Date of Surgery October 14, 2020 Pre & Post Diagnosis Operation Date: 10/14/20 10:10 Pre-Op Diagnosis: Left Femur Fracture Post-Op Diagnosis: Left Femur Fracture I identified the patient and participated in the time-out.: Yes Procedure Operation Date: 10/14/20 10:10 Actual Procedures p Left Hip Synthes Cephalomedullary Nail(Left) - Mich Arango DO Surgeon Mich Arango DO Chief Science Officer none Estimated Blood Loss 65 Findings Consistent with Post-Op Diagnosis Fluids 1300 cc LR Specimens none Drains Amos Catheter (16french inserted by Keyla Lanza RN without difficulty. To be removed at end of case.) Anesthesia Type General Complications none Disposition Disposition: Recovery Room Overlapping Procedure I was present for: the critical portions of procedure. I was immediately available: during the entire case. Back up surgeon: was not required during procedure.
--- NOTE | 2020-10-14 18:17 | Operative Report ---
Post Operative Report Pre & Post Diagnosis Operation Date: 10/14/20 10:10 Pre-Op Diagnosis: Left Femur Fracture Post-Op Diagnosis: Left Femur Fracture I identified the patient and participated in the time-out.: Yes Procedure Operation Date: 10/14/20 10:10 Actual Procedures p Left Hip Synthes Cephalomedullary Nail(Left) - Mich Arango DO Surgeon Mich Arango, Resin Maker none Estimated Blood Loss 65 Findings Consistent with Post-Op Diagnosis Fluids 1300 cc LR Specimens None Anesthesia Type General Complications none Disposition Disposition: Recovery Room Indications The patient is a 70yo male with nondisplace left intertrochanteric hip fracture sustained after a fall from standing height. The patient was medically stabilized on 10/14/2020. I indicated the patient for left hip cephalomedullary nail. The patient was informed of the risks and benefits of surgery, which include but not limited to infection, bleeding, blood clots, damage to nerves, vessels, bone and soft tissue, dislocation, leg length discrepancy, malunion, nonunion, failure of the implants, need for additional surgery and . The patient chose to proceed with surgical intervention and informed consent was obtained. Description of Procedure Following induction of adequate general anesthesia, the patient was placed on the fracture table. The right leg was placed in the well leg kennedy and the left leg in the traction leg kennedy. All bony prominences were protected. Utilizing c-arm fluoroscopy fracture positioning identified which was nondisplaced. Once satisfied the left hip was prepped and draped in the usual sterile manner. A time out was performed, patient identified, site renaldo verified. Appropriate IV antibiotics were given. The incision was made from the tip of the greater trochanter proximally. Subcutaneous tissue was sharply dissected to the tip of the greater trochanter, electrocautery used for hemostasis. Under fluoroscopic guidance the drill tipped guidewire was inserted at the tip of the greater trochanter and advanced into the medullary canal. Utilizing the intramedullary drill the guidewire was overdrilled with tissue protector attached. A 11 mm short Synthes TFN was inserted and impacted into position and confirmed by c-arm fluoroscopy. Next the aiming arm was attached to the insertion handle. A incision was made and carried down through subcutaneous tissues to bone. The blade guide sleeve was inserted and secured down to bone. The guide wire was passed across the fracture site to the tip of the femoral head, position was confirmed in the AP and lateral planes utilizing c-arm fluoroscopy. The guide pin was measured and the 11.0mm drill bit passed over the guide pin to open lateral cortex followed by a 6.0mm/10.0mm cannulated reamer to a depth of 95 mm. Next the helical blade was inserted and locked proximally. Traction was released and interfragmentary compression applied. Distally a stab incision was made in the skin and carried down to bone. The triple trocar assembly was inserted into the aiming guide to bone. Utilizing a 4.0mm drill, both cortices were drilled. The nail was locked distally using a single 4.9mm x 38 mm locking bolt. The aiming guide was removed at this time and final radiographs were obtained utilizing c-arm fluoroscopy to confirm over all position and fracture reduction. Incisions were irrigated with copious amounts of sterile saline solution. Subcutaneous tissue were injected utilizing .5% marcaine with epi. Deep closure was performed using #1 Vicryl followed by 2-0 Vicryl for subcutaneous tissues and deena in the skin. Sterile dressing, Xeroform gauze, 4x4s and tegaderm were applied. The patient tolerated the procedure well and was transported to the PACU in stable condition. I attest to the content of the Intraoperative Record and any orders documented therein. Any exceptions are noted below.
[2020-10-14] MEDS ORDERED: NEOSTIGMINE METHYLSULFATE 5 MG/5 ML SYR ONE (18:28)
[2020-10-14] MEDS ORDERED: SUCCINYLCHOLINE 100MG/5ML SYR IV ONE (18:28)
[2020-10-14] MEDS ORDERED: CISATRACURIUM BESYLATE IV SOLN 2 MG/ML 10 ML VIAL IV ONE (18:28)
[2020-10-14] MEDS ORDERED: GLYCOPYRROLATE 0.2 MG/ML VIAL ONE (18:28)
--- NOTE | 2020-10-14 18:31 | Orthopedic Progress Note ---
Date of Service October 14, 2020 Assessment & Plan (1) Closed hip fracture: Status post left hip short cephalomedullary nail -Ancef x24 -DVT prophylaxis: SCDs, teds, Lovenox daily -Toe-touch weightbearing left lower extremity -PT/OT -Postoperative x-ray well aligned well fixed implant, anatomic alignment of fracture site -A.m. lab Admission and Anticipated Discharge Date Admission Date: October 13, 2020 Subjective Post Operative Progress Note Patient seen in PACU, comfortable, denies complaints, pain well controlled, no acute issues. Review of Systems Review of Systems: All systems reviewed & are unremarkable except as noted in HPI & below Constitutional: as per Subjective / HPI Physical Exam Physical Exam: LLE NVSI +EHL/FHL/TA/GS SILT grossly, +2 DP pulse, compartments soft NT, dressing cdi. Constitutional: WD/WN, vitals as above Results & Data ([facility]) Vital Signs (Past 12 Hours) Vital Signs Temp Pulse Resp BP Pulse Ox 10/14/20 16:30 37.3 C 93 H 16 119/91 94 10/14/20 15:01 36.7 C 82 18 118/71 92 10/14/20 07:28 37.0 C 89 16 104/60 93 (1) Closed hip fracture Encounter type: initial encounter Laterality: left Qualified Code(s): S72.002A - Fracture of unspecified part of neck of left femur, initial encounter for closed fracture
[2020-10-14] MEDS: fentaNYL citrate 100 MCG/2 ML VIAL IV PRN ×2 (18:50→18:55)
--- NOTE | 2020-10-14 18:57 | Anesthesiology Progress Note ---
Date of Service October 14, 2020 Anesthesia Post Procedure Vital Signs Vital Signs: Temp Pulse Pulse Pulse Resp BP BP 10/14/20 18:55 85 20 10/14/20 18:45 77 20 10/14/20 18:35 76 20 10/14/20 18:25 72 14 10/14/20 18:19 37.8 C H 91 H 20 10/14/20 16:30 37.3 C 93 H 16 119/91 10/14/20 15:01 36.7 C 82 18 118/71 10/14/20 07:28 37.0 C 89 16 104/60 10/13/20 22:48 36.6 C 101 H 18 125/74 10/13/20 20:55 36.4 C L 90 18 132/70 10/13/20 20:30 96 H 17 114/75 10/13/20 20:00 90 21 111/71 10/13/20 19:47 89 20 10/13/20 19:30 96 H 14 118/69 10/13/20 19:00 94 H 16 130/70 BP Pulse Ox 10/14/20 18:55 107/67 96 10/14/20 18:45 122/72 96 10/14/20 18:35 114/65 94 10/14/20 18:25 123/72 98 10/14/20 18:19 118/78 98 10/14/20 16:30 94 10/14/20 15:01 92 10/14/20 07:28 93 10/13/20 22:48 95 10/13/20 20:55 97 10/13/20 20:30 93 10/13/20 20:00 94 10/13/20 19:47 93 10/13/20 19:30 97 10/13/20 19:00 96 Pain Intensity Left Hip: Pain Intensity: 6 Transfer of Care Handoff Completed per policy Notes Mental Status: alert / awake / arousable and participated in evaluation Patient Amnestic to Procedure: Yes Nausea / Vomiting: adequately controlled Pain: adequately controlled Airway Patency, RR, SpO2: stable & adequate BP & HR: stable & adequate Hydration State: stable & adequate Anesthetic Complications: no major complications apparent
[2020-10-14] MEDS: DOCUSATE SODIUM/SENNA 50/8.6MG TAB PO SCH (21:03)
--- NOTE | 2020-10-14 21:45 | XRay Report ---
LEFT HIP 2 VIEWS CLINICAL HISTORY: Postoperative examination. FINDINGS: AP and crosstable lateral portable views of the left hip are compared to study performed ea jovan the same day 10/14/2020. Intertrochanteric and intramedullary nails have been placed transfixing an intertrochanteric fracture. Near-anatomic alignment has been restored. A single cortical lag scre w transfixes the distal end of the intramedullary nail. No new fracture is seen. The visualized left hemipelvis appears intact. The joint space of the hip is preserved. Skin clips, subcutaneous gas, and soft tissue edema overlying the left hip are expected postoperative findings. IMPRESSION: Expected postoperative findings status post open reduction and internal fixation of the l eft proximal femur. Electronically signed by: Marcelino Ramirez M.D. 10/14/2020 9:44 PM
[2020-10-15] MEDS: ceFAZolin 2000MG 2,000 MG/15 ML SYR IV SCH ×3 (01:58→17:38)
[2020-10-15 06:01] LABS: Basophils # (auto) 0.01 K/uL (0-0.2); Basophils % (auto) 0.1 %; Eosinophils # (auto) 0.05 K/uL (0-0.5); Eosinophils % (auto) 0.7 %; Hematocrit (blood only) 32.8 % (42-52); Hemoglobin 11.5 g/dL (14.0-18.0); Immature Granulocytes # (auto) 0.01 K/uL (0.00-0.02); Immature Granulocytes % (auto) 0.1 %; Lymphocytes # (auto) 1.72 K/uL (1.2-3.4); Lymphocytes % (auto) 23.4 %; Mean Corpuscular Hemoglobin 32.1 pg (25-34); Mean Corpuscular Hgb Conc 35.1 g/dL (32-36); Mean Corpuscular Volume 91.6 fL (80-100); Mean Platelet Volume 8.5 fL (7.4-10.4); Monocytes # (auto) 1.03 K/uL (0.11-0.59); Neutrophils # (auto) 4.54 K/uL (1.4-6.5); Neutrophils % (auto) 61.7 %; Platelet Count 160 K/uL (130-400); RDW Coefficient of Variation 12.6 % (11.5-14.5); RDW Standard Deviation 42.7 fL (36.4-46.3); Red Blood Count 3.58 M/uL (4.7-6.1); White Blood Count 7.36 K/uL (4.8-10.8)
[2020-10-15 06:29] LABS: BUN Creatinine Ratio 10.9 (10-20); Calcium 8.2 mg/dl (8.5-10.1); Creatinine Clr Calc Pharmacy 98.8 ml/min; Est GFR (African American) 113.6; Potassium 3.9 mmol/L (3.5-5.1)
--- NOTE | 2020-10-15 09:12 | Orthopedic Progress Note ---
Date of Service October 15, 2020 Assessment & Plan (1) Closed hip fracture: POD 1 Status post left hip short cephalomedullary nail -Ancef x24, then dc -DVT prophylaxis: SCDs, teds, Lovenox daily -Toe-touch weightbearing left lower extremity -PT/OT -A.m. labs as below Admission and Anticipated Discharge Date Admission Date: October 13, 2020 Subjective POD 1 Pt sleeping upon arrival. Easily awoken. No complaints this AM. Pain controlled at rest. Physical Exam Physical Exam: Dressing are C/D/I. Mild swelling in the thigh but soft. NV intact. Calves soft, NT. Results & Data ([facility]) Vital Signs (Past 12 Hours) Vital Signs Temp Pulse Resp BP Pulse Ox 10/15/20 07:16 36.5 C 95 H 16 111/69 93 10/15/20 03:29 37 C 88 18 114/63 93 10/14/20 22:44 36.8 C 85 18 137/70 94 10/14/20 21:44 36.8 C 85 18 117/75 94 Laboratory Results Laboratory Results WBC 7.36 K/uL (4.8-10.8) 10/15/20 05:25 RBC 3.58 M/uL (4.7-6.1) L 10/15/20 05:25 Hgb 11.5 g/dL (14.0-18.0) L 10/15/20 05:25 Hct 32.8 % (42-52) L 10/15/20 05:25 MCV 91.6 fL (80-100) 10/15/20 05:25 MCH 32.1 pg (25-34) 10/15/20 05:25 MCHC 35.1 g/dL (32-36) 10/15/20 05:25 RDW Std Deviation 42.7 fL (36.4-46.3) 10/15/20 05:25 RDW Coeff of Nnamdi 12.6 % (11.5-14.5) 10/15/20 05:25 Plt Count 160 K/uL (130-400) 10/15/20 05:25 MPV 8.5 fL (7.4-10.4) 10/15/20 05:25 Immature Gran % (Auto) 0.1 % 10/15/20 05:25 Neut % (Auto) 61.7 % 10/15/20 05:25 Lymph % (Auto) 23.4 % 10/15/20 05:25 [place] % (Auto) 14.0 % 10/15/20 05:25 Eos % (Auto) 0.7 % 10/15/20 05:25 Baso % (Auto) 0.1 % 10/15/20 05:25 Neut # (Auto) 4.54 K/uL (1.4-6.5) 10/15/20 05:25 Lymph # (Auto) 1.72 K/uL (1.2-3.4) 10/15/20 05:25 [place] # (Auto) 1.03 K/uL (0.11-0.59) H 10/15/20 05:25 Eos # (Auto) 0.05 K/uL (0-0.5) 10/15/20 05:25 Baso # (Auto) 0.01 K/uL (0-0.2) 10/15/20 05:25 Immature Gran # (Auto) 0.01 K/uL (0.00-0.02) 10/15/20 05:25 PT 10.2 Seconds (9.0-12.0) 10/13/20 17:00 INR 1.0 (0.9-1.1) 10/13/20 17:00 APTT 26.0 Seconds (21.0-31.0) 10/13/20 17:00 PTT Ratio 1.0 10/13/20 17:00 Sodium 140 mmol/L (136-145) 10/15/20 05:25 Potassium 3.9 mmol/L (3.5-5.1) 10/15/20 05:25 Chloride 108 mmol/L (98-107) H 10/15/20 05:25 Carbon Dioxide 28 mmol/L (21-32) 10/15/20 05:25 Anion Gap 4.0 (3-11) 10/15/20 05:25 BUN 7 mg/dl (7-18) 10/15/20 05:25 Creatinine 0.67 mg/dl (0.6-1.4) 10/15/20 05:25 Est Cr Clr Drug Dosing 98.8 ml/min 10/15/20 05:25 Est GFR ( Amer) 113.6 10/15/20 05:25 Est GFR (Non-Af Amer) 98.0 10/15/20 05:25 BUN/Creatinine Ratio 10.9 (10-20) 10/15/20 05:25 Glucose 94 mg/dl (70-99) 10/15/20 05:25 Calcium 8.2 mg/dl (8.5-10.1) L 10/15/20 05:25 Magnesium 2.2 mg/dl (1.8-2.4) 10/14/20 06:09 Urine Color Yellow 10/14/20 05:00 Urine Appearance Clear (Clear) 10/14/20 05:00 Urine pH 7.0 (4.5-7.5) 10/14/20 05:00 Ur Specific [place] 1.005 (1.000-1.030) 10/14/20 05:00 Urine Protein Negative (Negative) 10/14/20 05:00 Urine Glucose (UA) Negative (Negative) 10/14/20 05:00 Urine Ketones Trace (Negative) H 10/14/20 05:00 Urine Blood Negative (Negative) 10/14/20 05:00 Urine Nitrite Negative (Negative) 10/14/20 05:00 Urine Bilirubin Negative (Negative) 10/14/20 05:00 Urine Urobilinogen Negative (Negative) 10/14/20 05:00 Ur Leukocyte Esterase Negative (Negative) 10/14/20 05:00 Nasal Screen MRSA (PCR) Negative (Negative) 10/13/20 20:39 Phenytoin 3.3 mcg/ml (10-20) L 10/13/20 21:27 COVID-19 Eval Order Covid19 IDNow [facility] 10/13/20 18:20 SARS-CoV-2, RNA, NAAT NEGATIVE (NEGATIVE) 10/13/20 18:20 Blood Type B Positive 10/13/20 17:26 Antibody Screen NEGATIVE 10/13/20 17:26 (1) Closed hip fracture Encounter type: initial encounter Laterality: left Qualified Code(s): S72.002A - Fracture of unspecified part of neck of left femur, initial encounter for closed fracture
[2020-10-15] MEDS: PHENYTOIN SODIUM ER 100 MG CAP PO SCH (09:49)
[2020-10-15] MEDS: SODIUM CHLORIDE 1 GM TABLET PO SCH (09:49)
[2020-10-15] MEDS: ATORVASTATIN 40 MG TAB PO SCH (09:49)
[2020-10-15] MEDS: ENOXAPARIN INJ 40 MG/0.4 ML SYR SQ SCH (09:50)
[2020-10-15] MEDS: ACETAMINOPHEN 325 MG TAB PO PRN (09:53)
--- NOTE | 2020-10-15 16:01 | Hospitalist Progress Note ---
Date of Service October 15, 2020 Assessment & Plan (1) Fracture of femur, left, closed: Patient is a 70yr male with H/O Traumatic brain injury, SIADH, HLD, seizure disorder presented to ER with c/o mechanical fall and left hip pain. Left Femur Fracture Mechanical Fall Hip X ray:Nondisplaced intertrochanteric fracture within the proximal left femur. 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 Chronic Right eye blindness DVT Px: SCDs Re: Planned for surgery Code Status Full Code Disposition Rehab as able Admission and Anticipated Discharge Date Admission Date: October 13, 2020 Subjective Patient is seen and examined at bedside Sitting in chair comfortably this morning Pain at surgical site is controlled Offers no complaints Denies chest pain, dyspnea, dizziness, nausea, abdominal pain Review of Systems Review of Systems: All systems reviewed & are unremarkable except as noted in HPI & below Physical Exam Physical Exam: Physical Exam: Vitals signs as noted above General Appearance:Thin, frail, no apparent distress Head: normocephalic, Atraumatic Eyes: normal inspection, EOMI, Right eye blindness-chronic Neck: supple, Trachea midline Respiratory/Chest: Normal breath sounds, CTA, No accessory muscle use Cardiovascular: S1, S2, No murmur Abdomen/GI:Soft, Non tender, Bowel sounds present Extremities/Musculoskeletal:normal inspection, no edema, L hip surgical site in dressing Neurologic/Psych:AAOX3, grossly no focal neurological deficits Skin: normal color, warm Results & Data Results & Data ([facility]) Vital Signs (Past 12 Hours) Vital Signs Temp Pulse Resp BP Pulse Ox 10/15/20 14:49 36.6 C 88 16 107/68 96 10/15/20 12:20 36.7 C 110 H 18 97/63 L 92 10/15/20 07:16 36.5 C 95 H 16 111/69 93 Laboratory Results Short CBC 10/15/20 Range/Units 05:25 WBC 7.36 (4.8-10.8) K/uL Hgb 11.5 L (14.0-18.0) g/dL Hct 32.8 L (42-52) % Plt Count 160 (130-400) K/uL BMP 10/15/20 05:25 Sodium 140 Potassium 3.9 Chloride 108 H Carbon Dioxide 28 BUN 7 Creatinine 0.67 Glucose 94 Calcium 8.2 L
[2020-10-15] MEDS: DOCUSATE SODIUM/SENNA 50/8.6MG TAB PO SCH (21:10)
[2020-10-16] MEDS: ACETAMINOPHEN 325 MG TAB PO PRN ×2 (02:58→10:24)
[2020-10-16 07:25] LABS: Basophils # (auto) 0.02 K/uL (0-0.2); Basophils % (auto) 0.3 %; Eosinophils # (auto) 0.11 K/uL (0-0.5); Eosinophils % (auto) 1.7 %; Hematocrit (blood only) 30.1 % (42-52); Hemoglobin 10.4 g/dL (14.0-18.0); Immature Granulocytes # (auto) 0.01 K/uL (0.00-0.02); Immature Granulocytes % (auto) 0.2 %; Lymphocytes # (auto) 2.01 K/uL (1.2-3.4); Lymphocytes % (auto) 30.5 %; Mean Corpuscular Hemoglobin 31.4 pg (25-34); Mean Corpuscular Hgb Conc 34.6 g/dL (32-36); Mean Corpuscular Volume 90.9 fL (80-100); Mean Platelet Volume 8.5 fL (7.4-10.4); Monocytes # (auto) 0.96 K/uL (0.11-0.59); Monocytes % (auto) 14.5 %; Neutrophils # (auto) 3.49 K/uL (1.4-6.5); Neutrophils % (auto) 52.8 %; Platelet Count 150 K/uL (130-400); RDW Coefficient of Variation 12.3 % (11.5-14.5); RDW Standard Deviation 41.3 fL (36.4-46.3); Red Blood Count 3.31 M/uL (4.7-6.1)
[2020-10-16 08:00] LABS: BUN Creatinine Ratio 15.2 (10-20); Calcium 8.4 mg/dl (8.5-10.1); Creatinine Clr Calc Pharmacy 103.4 ml/min; Est GFR (African American) 115.8; Est GFR (Non-African American) 99.9; Potassium 3.3 mmol/L (3.5-5.1)
--- NOTE | 2020-10-16 08:36 | Orthopedic Progress Note ---
Date of Service October 16, 2020 Assessment & Plan (1) Closed hip fracture: POD 2 Status post left hip short cephalomedullary nail -Ancef x24, then dc -DVT prophylaxis: SCDs, teds, Lovenox daily -Toe-touch weightbearing left lower extremity -PT/OT -A.m. labs as below -Planning on d/c to [facility] Admission and Anticipated Discharge Date Admission Date: October 13, 2020 Supervising Physician Co-Signing Physician Notes Patient seen and examined, comfortable, agree with above assessment and plan Left lower extremity is neurovascular and sensory intact grossly, +2 dorsalis pedis pulse, compartment soft nontender, dressings clean dry and intact POD 2 Status post left hip short cephalomedullary nail -Ancef x24, then dc -DVT prophylaxis: SCDs, teds, Lovenox daily -Toe-touch weightbearing left lower extremity -PT/OT -A.m. labs as below, hgb 10.4 -Planning on d/c to [facility] Subjective POD#2 left hip surgery. Doing okay this morning, hip pain well controlled. Review of Systems Review of Systems: All systems reviewed & are unremarkable except as noted in HPI & below Physical Exam Physical Exam: Left hip dressings are c/d/i. No calf tenderness. Toes mobile, good dorsiflexion. Distally n/v status and senstation intact. Constitutional: well developed and well nourished; no acute distress Results & Data ([facility]) Vital Signs (Past 12 Hours) Vital Signs Temp Pulse Resp BP Pulse Ox Pulse Ox 10/16/20 07:49 36.5 C 84 16 112/72 94 10/15/20 23:00 37.2 C 89 18 111/74 94 10/15/20 21:00 95 Laboratory Results 10/16/20 10/16/20 Range/Units 06:54 06:54 WBC 6.60 (4.8-10.8) K/uL RBC 3.31 L (4.7-6.1) M/uL Hgb 10.4 L (14.0-18.0) g/dL Hct 30.1 L (42-52) % MCV 90.9 (80-100) fL MCH 31.4 (25-34) pg MCHC 34.6 (32-36) g/dL RDW Std Deviation 41.3 (36.4-46.3) fL RDW Coeff of Nnamdi 12.3 (11.5-14.5) % Plt Count 150 (130-400) K/uL MPV 8.5 (7.4-10.4) fL Immature Gran % (Auto) 0.2 % Neut % (Auto) 52.8 % Lymph % (Auto) 30.5 % [place] % (Auto) 14.5 % Eos % (Auto) 1.7 % Baso % (Auto) 0.3 % Neut # (Auto) 3.49 (1.4-6.5) K/uL Lymph # (Auto) 2.01 (1.2-3.4) K/uL [place] # (Auto) 0.96 H (0.11-0.59) K/uL Eos # (Auto) 0.11 (0-0.5) K/uL Baso # (Auto) 0.02 (0-0.2) K/uL Immature Gran # (Auto) 0.01 (0.00-0.02) K/uL Sodium 140 (136-145) mmol/L Potassium 3.3 L D (3.5-5.1) mmol/L Chloride 106 (98-107) mmol/L Carbon Dioxide 26 (21-32) mmol/L Anion Gap 8.0 (3-11) BUN 10 (7-18) mg/dl Creatinine 0.64 (0.6-1.4) mg/dl Est Cr Clr Drug Dosing 103.4 ml/min Est GFR ( Amer) 115.8 Est GFR (Non-Af Amer) 99.9 BUN/Creatinine Ratio 15.2 (10-20) Glucose 77 (70-99) mg/dl Calcium 8.4 L (8.5-10.1) mg/dl (1) Closed hip fracture Encounter type: initial encounter Laterality: left Qualified Code(s): S72.002A - Fracture of unspecified part of neck of left femur, initial encounter for closed fracture
[2020-10-16] MEDS: ATORVASTATIN 40 MG TAB PO SCH (08:41)
[2020-10-16] MEDS: SODIUM CHLORIDE 1 GM TABLET PO SCH (08:41)
[2020-10-16] MEDS: ENOXAPARIN INJ 40 MG/0.4 ML SYR SQ SCH (08:41)
[2020-10-16] MEDS: PHENYTOIN SODIUM ER 100 MG CAP PO SCH (08:41)
[2020-10-16] MEDS ORDERED: POTASSIUM CHLORIDE CRTAB 20 MEQ TABCR PO ONE (09:12)
--- NOTE | 2020-10-16 15:50 | Hospitalist Progress Note ---
Date of Service October 16, 2020 Assessment & Plan (1) Fracture of femur, left, closed: Patient is a 70yr male with H/O Traumatic brain injury, SIADH, HLD, seizure disorder presented to ER with c/o mechanical fall and left hip pain. Left Femur Fracture Mechanical Fall Hip X ray:Nondisplaced intertrochanteric fracture within the proximal left femur. 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 Chronic Right eye blindness DVT Px: Lovenox SQ Code Status Full Code Disposition Rehab as able Admission and Anticipated Discharge Date Admission Date: October 13, 2020 Subjective Patient is seen and examined at bedside Left hip pain is controlled Had dressing changed this morning Offers no new complaints Denies chest pain, dyspnea, dizziness, nausea, abdominal pain Review of Systems Review of Systems: All systems reviewed & are unremarkable except as noted in HPI & below Physical Exam Physical Exam: Physical Exam: Vitals signs as noted above General Appearance:Thin, frail, no apparent distress Head: normocephalic, Atraumatic Eyes: normal inspection, EOMI, Right eye blindness-chronic Neck: supple, Trachea midline Respiratory/Chest: Normal breath sounds, CTA, No accessory muscle use Cardiovascular: S1, S2, No murmur Abdomen/GI:Soft, Non tender, Bowel sounds present Extremities/Musculoskeletal:normal inspection, no edema, L hip surgical site in dressing Neurologic/Psych:AAOX3, grossly no focal neurological deficits Skin: normal color, warm Results & Data Results & Data ([facility]) Vital Signs (Past 12 Hours) Vital Signs Temp Pulse Resp BP Pulse Ox 10/16/20 15:08 36.5 C 82 16 100/64 95 10/16/20 07:49 36.5 C 84 16 112/72 94 Laboratory Results Short CBC 10/16/20 Range/Units 06:54 WBC 6.60 (4.8-10.8) K/uL Hgb 10.4 L (14.0-18.0) g/dL Hct 30.1 L (42-52) % Plt Count 150 (130-400) K/uL BMP 10/16/20 06:54 Sodium 140 Potassium 3.3 L D Chloride 106 Carbon Dioxide 26 BUN 10 Creatinine 0.64 Glucose 77 Calcium 8.4 L
[2020-10-16] MEDS: DOCUSATE SODIUM/SENNA 50/8.6MG TAB PO SCH (21:45)
[2020-10-17 06:30] LABS: Basophils # (auto) 0.02 K/uL (0-0.2); Basophils % (auto) 0.3 %; Eosinophils # (auto) 0.24 K/uL (0-0.5); Eosinophils % (auto) 4.1 %; Hematocrit (blood only) 28.4 % (42-52); Hemoglobin 9.9 g/dL (14.0-18.0); Immature Granulocytes # (auto) 0.02 K/uL (0.00-0.02); Immature Granulocytes % (auto) 0.3 %; Lymphocytes % (auto) 29.1 %; Mean Corpuscular Hemoglobin 31.7 pg (25-34); Mean Corpuscular Hgb Conc 34.9 g/dL (32-36); Mean Platelet Volume 8.4 fL (7.4-10.4); Monocytes # (auto) 0.77 K/uL (0.11-0.59); Monocytes % (auto) 13.2 %; Platelet Count 177 K/uL (130-400); RDW Coefficient of Variation 12.4 % (11.5-14.5); Red Blood Count 3.12 M/uL (4.7-6.1); White Blood Count 5.85 K/uL (4.8-10.8)
[2020-10-17 07:05] LABS: Est GFR (African American) 119.7; Potassium 3.5 mmol/L (3.5-5.1)
[2020-10-17 07:06] LABS: BUN Creatinine Ratio 13.2 (10-20); Calcium 8.4 mg/dl (8.5-10.1); Creatinine Clr Calc Pharmacy 112.1 ml/min; Est GFR (Non-African American) 103.3; Magnesium 2.2 mg/dl (1.8-2.4)
--- NOTE | 2020-10-17 08:32 | Orthopedic Progress Note ---
Date of Service October 17, 2020 Assessment & Plan (1) Closed hip fracture: POD #3 Status post left hip short cephalomedullary nail -Ancef x24, then dc -DVT prophylaxis: SCDs, teds, Lovenox daily -Toe-touch weightbearing left lower extremity -PT/OT -A.m. labs-hgb 9.4 today -Planning on d/c to [facility] will sign off at this time. Please call with any questions. D/c instructions in chart. Can call [phone] for follow up with Dr. Arango 12- 14 days post operatively Admission and Anticipated Discharge Date Admission Date: October 13, 2020 Subjective Patient doing well this morning, some pain in hip but controlled. No other complaints. Denies chest pain, sob, dizziness, headache, n/v/d. Review of Systems Constitutional: as per Subjective / HPI Physical Exam Physical Exam: Left hip dressings are c/d/i. No calf tenderness. Toes mobile, good dorsiflexion. Distally n/v status and senstation intact. Constitutional: well developed and well nourished; no acute distress Results & Data ([facility]) Vital Signs (Past 12 Hours) Vital Signs Temp Pulse Resp BP Pulse Ox Pulse Ox 10/17/20 06:35 36.5 C 77 16 103/67 93 10/17/20 03:46 95 10/16/20 23:30 95 10/16/20 22:27 36.7 C 86 16 100/64 94 (1) Closed hip fracture Encounter type: initial encounter Laterality: left Qualified Code(s): S72.002A - Fracture of unspecified part of neck of left femur, initial encounter for closed fracture
[2020-10-17] MEDS: SODIUM CHLORIDE 1 GM TABLET PO SCH (08:53)
[2020-10-17] MEDS: ATORVASTATIN 40 MG TAB PO SCH (08:54)
[2020-10-17] MEDS: PHENYTOIN SODIUM ER 100 MG CAP PO SCH (08:55)
[2020-10-17] MEDS: ENOXAPARIN INJ 40 MG/0.4 ML SYR SQ SCH (08:56)
--- NOTE | 2020-10-17 11:23 | Hospitalist Progress Note ---
Date of Service October 17, 2020 Assessment & Plan (1) Fracture of femur, left, closed: Patient is a 70yr male with H/O Traumatic brain injury, SIADH, HLD, seizure disorder presented to ER with c/o mechanical fall and left hip pain. Left Femur Fracture Mechanical Fall Hip X ray:Nondisplaced intertrochanteric fracture within the proximal left femur. 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 DVT Px: Lovenox SQ Code Status Full Code Disposition Rehab Admission and Anticipated Discharge Date Admission Date: October 13, 2020 Subjective Patient is seen and examined at bedside Sitting in chair comfortably this morning Left hip pain is slowly improving No new complaints Denies chest pain, dyspnea, dizziness, nausea, abdominal pain Plan to be discharged to rehab facility today Review of Systems Review of Systems: All systems reviewed & are unremarkable except as noted in HPI & below Physical Exam Physical Exam: Physical Exam: Vitals signs as noted above General Appearance:Thin, frail, no apparent distress Head: normocephalic, Atraumatic Eyes: normal inspection, EOMI, Right eye blindness-chronic Neck: supple, Trachea midline Respiratory/Chest: Normal breath sounds, CTA, No accessory muscle use Cardiovascular: S1, S2, No murmur Abdomen/GI:Soft, Non tender, Bowel sounds present Extremities/Musculoskeletal:normal inspection, no edema, L hip surgical site in dressing Neurologic/Psych:AAOX3, grossly no focal neurological deficits Skin: normal color, warm Results & Data Results & Data ([facility]) Vital Signs (Past 12 Hours) Vital Signs Temp Pulse Resp BP Pulse Ox Pulse Ox 10/17/20 06:35 36.5 C 77 16 103/67 93 10/17/20 03:46 95 10/16/20 23:30 95 Laboratory Results Short CBC 10/17/20 Range/Units 05:47 WBC 5.85 (4.8-10.8) K/uL Hgb 9.9 L (14.0-18.0) g/dL Hct 28.4 L (42-52) % Plt Count 177 (130-400) K/uL BMP 10/17/20 05:47 Sodium 141 Potassium 3.5 Chloride 108 H Carbon Dioxide 26 BUN 8 Creatinine 0.59 L Glucose 90 Calcium 8.4 L
--- NOTE | 2020-10-17 11:33 | Discharge Summary ---
Date of Service October 17, 2020 Admission HPI Per Admitting Provider Pt is 70 y/o M with PMH traumatic brain injury, SIADH, HLD, seizure disorder presented to ER with c/o fall and left hip pain. Prior to arrival pt was carrying 40lb bucket of cat litter up stairs and reports lost his balance and fell backwards. Denies hitting head. Denies dizziness, syncope, CP, SOB, neck pain. C/O left hip pain and was unable to ambulate after fall. Denies any other injury or complaint. Denies fever/chills, diaphoresis, N/V/D/C, UMANZOR, new vision changes, orthopnea, palpitations, cough, sore throat, choking, otalgia, rhinorrhea, abdominal pain, paresthesias, weakness, extremity edema, rashes, ur inary symptoms. Admission Exam Per Admitting Provider Physical Exam Physical Exam: General: no distress, WDWN Head: normocephalic, atraumatic Eyes: Left eye PERRL, EOM's intact, Right eye: ptosis, limited EOM (chronic) conjunctiva non-injected, anicteric ENT: normal inspection external ears, nose, mucous membranes moist Neck: supple, trachea midline, non-tender, ROM intact Lungs: clear, no respiratory distress, no wheezing/rhonchi/rales CV: RRR, no murmur, no pretibial edema Abd: normal BS, soft, non-tender Ext: LLE: +left leg shortened and externally rotated, sensation to light touch intact, distal pulses intact; remaining extremities non-tender, ROM intact Neuro: A&O x 3, no focal deficits noted, normal affect Skin: warm, dry Principal Diagnosis Left Femur Fracture Hypokalemia Discharge Data Allergies Allergy/AdvReac Type Severity Reaction Status Date / Time No Known Allergies Allergy Unknown Verified 10/13/20 19:15 Consultations 10/13/20 17:40 ED Decision to Admit Stat 10/13/20 17:55 Consult Orthopedic Surgery Routine 10/13/20 21:14 Consult Anesthesiology Routine Consult Case Management - Discharge Planning Routine 10/14/20 08:00 Consult Orthopedic Surgery Routine 10/14/20 18:41 Consult Case Management - Discharge Planning Routine Procedures Performed Operation Date: 10/14/20 10:10 Actual Procedures p Left Hip Synthes Cephalomedullary Nail(Left) - Mich Arango DO Ordered Studies 10/14/20 14:00 FL fluoroscopy <1hr Routine FL hip LT 2-3V Routine Hip X ray:Nondisplaced intertrochanteric fracture within the proximal left femur . Hospital Course (1) Fracture of femur, left, closed: Patient is a 70yr male with H/O Traumatic brain injury, SIADH, HLD, seizure disorder presented to ER with c/o mechanical fall and left hip pain. Left Femur Fracture Mechanical Fall Hip X ray:Nondisplaced intertrochanteric fracture within the proximal left femur. 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 DVT Px: Lovenox SQ Code Status Full Code Disposition Rehab Total Time Total Time Spent Total Time Spent (In Minutes): 44 minutes Discharge Plan Discharge Items Patient Disposition: Transfer Inpatient Rehab Fac Reason For Visit: FEMUR FRACTURE Discharge Diagnosis: Left Femur Fracture Hypokalemia Activity: Per Instructions section Exercise/Sports: Gradually increase as tolerated Weightbearing: Left toe touch Weightbearing Comment: with walker Non-emergency contact: Primary Care Provider and Surgeon Call non-emergency contact if: you have any medication questions, your pain is not controlled, your pain is concerning for you, you have a fever, your temperature is above 101.5, your wound has increased redness and your wound has increased drainage Follow-up/Referrals: Johnnie Vásquez MD [Primary Care Provider] - Diet: Regular Addtl Attending Provider Instructions: Follow-up with your primary care physician Dr. Vásquez in 1 week upon discharge from rehab facility Follow-up with your orthopedic [facility] weeks as advised Continue Lovenox SQ for DVT prophylaxis while at rehab facility, until you follow-up with your orthopedic surgeon. Further instructions as per your surgeon. Seek immediate medical attention if your symptoms reoccur or worsen Addtl Fleet Manager/Dispatch Provider Instructions: [facility] DISCHARGE INSTRUCTIONS: HIP FRACTURE SELF CARE INSTRUCTIONS: A. You are to ambulate with a walker or crutches for approximately 6 weeks. B. You are TOE TOUCH WEIGHT BEARING on your operative lower extremity for at least 6 weeks. C. Wear low heeled shoes with non-slip soles D. Be sure that your floors are free of things that could trip you throw rugs, electrical cords, and small objects. Avoid wet and waxed floors, especially with crutches/walker/cane. E. Try to walk several times a day with rest periods between. F. You may shower 48 hours after surgery and get the incision area wet, but DO NOT soak or submerge incision area in water. (No baths, swimming pools, hot tubs) G. You may have a large, band-aid like dressing over your incision (Aquacel). This will remain on your incision for 7 days, and then can be removed. You CAN shower with this on. If incision is leaking through the dressing, please call the office . H. Do NOT apply soap or any ointment/lotions directly over incision. I. You may use ice as needed to operative site. SPECIAL CARE INSTRUCTIONS: VERY IMPORTANT TO READ AND REVIEW A. You may be at risk for phlebitis or blood clots. a. Wear surgical stockings (ARTURO hose) for 2 weeks after surgery to improve circulation and reduce swelling. b. Take LOVENOX 40mg SQ daily for 4 weeks or as directed. This is your blood thinner. c. If you are on Coumadin- you will have daily/weekly blood work to monitor your levels. This will be done by either your family physician/junior network administrator (if you are on Coumadin chronically) versus your orthopedic surgeon. Expect a phone call the day of or the day after your blood work is drawn to adjust your dose accordingly. B. There are a few signs you need to watch for after you are home. Call [facility] at [phone] if you experience any of the following: a. If you have a temperature of 101 degrees or higher. b. Sudden increase in pain in your hip not relieved by rest or pain medication. c. Any fluid or drainage from the incision; redness of the incision. d. Shortness of breath or chest pain. C. Call your physician if: a. Temperature is greater than 101 degrees (F). b. Pain is not relieved by prescribed pain medications. c. Increase drainage or redness from incision. d. Unanswered questions or concerns. D. Pain Medication: a. You will be prescribed pain medication upon discharge that should last till your first post-operative appointment. b. If you experience nausea and/or skin rash, discontinue this medication and contact our office for an alternative medication. c. Caution- narcotic pain medication can cause constipation. FOLLOW UP VISIT: Please call [facility] at [phone] to schedule a follow up appointment 10-14 days from the date of your surgery date. Pending Studies at Discharge: No Stand-Alone Forms: My [facility] Skilled Items Patient informed of condition?: Yes DNR: No Discharge Level of Care: Acute rehab Communicable Disease: No Discharge Prognosis: Improving Lines: None Urinary Catheter: No Medications and DC Order Prescriptions: New enoxaparin 40 mg/0.4 mL Syringe 40 mg subcut Q24H 28 Days Qty: 0 RF: 0 bisacodyl 10 mg Suppository 10 mg [place] DAILY PRNQty: 0 RF: 0 Continued atorvastatin 80 mg tablet 80 mg PO DAILY RF: 0 sodium chloride 1 gram tablet 2 g PO DAILY RF: 0 phenytoin sodium extended [Dilantin Extended] 100 mg capsule 400 mg PO DAILY RF: 0 vitamins-lipotropics Tablet 2 tab PO DAILY RF: 0 cholecalciferol (vitamin D3) 25 mcg (1,000 unit) Tablet 25 mcg PO DAILY RF: 0 Discharge Orders: Discharge Order (Routine); Ordered 10/17/20 Ordered By: Jamaal Alatorre Admission Data Admit Date/Time: 10/13/20 18:25 Attending Provider: Jamaal Alatorre Admit Provider: Oniel Partida Primary Care Provider: Johnnie Vásquez Other Providers: Oniel Partida ; Gabe Roman ; Matty Castillo ; Flavio Jackson ; [facility] Other Interventions: Discharge Summary Assessment (RN) Last Done: 10/17/20 12:37
== END 2020-10-17 13:39 | DRG 481 ==
LOC: ED 16:36 → SUATTDRO 18:25 → 3W 18:25

== ENCOUNTER 2020-10-19 10:36 | Observation (INO) ==
[2020-10-19] MEDS ORDERED: SODIUM CHLORIDE 0.9% 1000ML 1,000 ML IV ONE (11:03)
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
[2020-10-19 11:42] LABS: Basophils # (auto) 0.03 K/uL (0-0.2); Basophils % (auto) 0.4 %; Eosinophils # (auto) 0.41 K/uL (0-0.5); Eosinophils % (auto) 5.8 %; Hematocrit (blood only) 32.4 % (42-52); Hemoglobin 11.3 g/dL (14.0-18.0); Immature Granulocytes # (auto) 0.03 K/uL (0.00-0.02); Immature Granulocytes % (auto) 0.4 %; Lymphocytes % (auto) 22.8 %; Mean Corpuscular Hemoglobin 31.4 pg (25-34); Mean Corpuscular Hgb Conc 34.9 g/dL (32-36); Monocytes # (auto) 0.79 K/uL (0.11-0.59); Monocytes % (auto) 11.2 %; Neutrophils # (auto) 4.17 K/uL (1.4-6.5); Neutrophils % (auto) 59.4 %; Platelet Count 238 K/uL (130-400); RDW Coefficient of Variation 12.2 % (11.5-14.5); RDW Standard Deviation 39.8 fL (36.4-46.3); White Blood Count 7.03 K/uL (4.8-10.8)
[2020-10-19 12:01] LABS: Albumin Level 2.8 gm/dl (3.4-5.0); BUN Creatinine Ratio 9.8 (10-20); Calcium 9.3 mg/dl (8.5-10.1); Creatinine Clr Calc Pharmacy 96.5 ml/min; Est GFR (African American) 111.6; Est GFR (Non-African American) 96.3; Potassium 3.6 mmol/L (3.5-5.1)
[2020-10-19 12:04] LABS: Albumin Globulin Ratio 0.6 (0.9-2); Bilirubin,Total 0.6 mg/dl (0.2-1); Globulin 4.5 gm/dl (2.5-4.0); Total Protein 7.3 gm/dl (6.4-8.2)
[2020-10-19 12:23] LABS: Appearance Urine Clear (Clear); Bilirubin Urine Negative (Negative); Blood Urine Negative (Negative); Color Urine Yellow; Glucose Urine UA Negative (Negative); Ketones Urine Negative (Negative); Leukocyte Esterase Urine Negative (Negative); Nitrite Urine Negative (Negative); Protein Urine Negative (Negative); Specific Gravity Urine 1.013 (1.000-1.030); Urobilinogen Urine Negative (Negative)
--- NOTE | 2020-10-19 12:35 | CT Scan Report ---
CT head/brain wo con CLINICAL HISTORY: Acute change in mental status COMPARISON STUDY: No previous studies for comparison. TECHNIQUE: Axial CT of the brain is performed from the vertex to the skull base. IV contrast was not administered for this examination. A dose lowering technique was utilized adhering to the principles of ALARA. CT DOSE: 614.27 mGy.cm FINDINGS: There are postsurgical changes of a left frontotemporal craniotomy. There is artifact from multiple m etallic coil-like densities in the region [place] of [place] likely secondary to embolization of a arnulfo t aneurysm. There are multiple hyperdense parenchymal nodules numbering in excess of 10. These demons trate no surrounding vasogenic edema. This favors the diagnosis of multiple cavernoma's. An MRI is re commended in follow-up to exclude other pathologic entities including hyperdense metastasis. There are patchy white matter hypodensities likely on a small vessel basis. There is bilateral fronta l lobe encephalomalacia. There is no pathologic ventricular dilatation. There is a cavum septa pellucida and cavum vergae. There is opacification of the left frontal sinus which appears hyperdense raise the possibility of fu ngal etiology. There are possible left-sided nasal polyps. IMPRESSION: 1. There are in excess of 10 hyperdense parenchymal nodules without surrounding vasogenic edema. The appearance favors multiple cavernoma's. An MRI is recommended in follow-up for further evaluation 2. Postsurgical changes of a prior left-sided craniotomy 3. Evidence of prior aneurysm embolization 4. 12 mm right-sided scalp frontal scalp nodule 5. Bifrontal encephalomalacia 6. Opacified left maxillary sinus possibly fungal etiology. Left-sided nasal turbinate engorgement ve rsus polyps. ACT 112: Negative or not required by law. Electronically signed by: Obie Pulido M.D. 10/19/2020 12:33 PM
--- NOTE | 2020-10-19 14:12 | XRay Report ---
ORBIT RADIOGRAPHS 3 VIEWS HISTORY: pre-MRI screening. COMPARISON: None. FINDINGS: There are no radiopaque foreign bodies identified within the orbits. There are postsurgical changes of a left-sided craniotomy with small skull plates and screws. There are intracranial metall ic coils likely secondary to prior aneurysm embolization. IMPRESSION: No radiopaque foreign bodies identified within the orbits. ACT 112: Negative or not required by law. Electronically signed by: Obie Pulido M.D. 10/19/2020 2:11 PM
--- NOTE | 2020-10-19 16:06 | History & Physical Report ---
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 Pt with reported, "confusion," and stating that his was being sued. Nursing staff/ felt pt altered and was sent to ED. Pt states he just wanted to leave rehab and go home but they brought him here. He is alert and oriented, follows all commands even complex ones. Does appear to have difficulty with insight, but likely baseline given hx of TBI. CT Head shows excess of 10 hyperdense parenchymal nodules without surrounding vasogenic edema. The appearance favors multiple cavernoma's. MRI recommended but unobtainable per endoscopy specialty technician due to unable to obtain records of aneursym clipping from 2001. Procedure done at [facility] who does not keep records past 10 years. Pt well established with Dr. Ellis of [facility] neurology. Admit to med/surg consult neurology 10/[address] and transient confusion PT/OT, TTWB labs acceptable, no s/sx of infection (2) Fracture of femur, left, closed: s/p CMN on 10/[address] Arango continue PT/OT, TTWB wound care for dressing changes (3) History of traumatic brain injury: (4) Seizure disorder: consult neurology continue Dilantin (5) Anemia: ABL 2/2 to surgery and fx stable 11.3 and 32.4 (6) Loose stools: pt c/o of water coming out of rectum?? unsure if kit diarrhea per med list pt was prescribed miralax, colace and senna but not narcotics HOLD all stool softeners at this time (7) SIADH (syndrome of inappropriate ADH production): continue NACL tabls Na 139 (8) Encephalomalacia on imaging study: 2/2 to hx of TBI (9) Abnormal CT of brain: ? multiple cavernomas per Dr. Ellis note in past pt with hx of series of cavernous hemangioma, no prior brain imaging to review consult neuro also of note opacified L maxillary sinus ? fungal etiology with L nasal turbinate engorgement (this has been seen on prior imaging) in regards to opacified sinus ? if 2/2 to post surgical changes from injury (10) DVT prophylaxis: SQ Lovenox Dispo: Med/surg, case management consulted, pt adamant about returning to home instead of rehab, will need PT/OT eval for needs PCP: Fahad FULL CODE Pt was seen and examined in collaboration with Dr. Alatorre, please see addendum History of Present Illness Chief Complaint: Mental status changes off and on x 1 day. 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 Of significance pt recently hospitalized early this month 10/05 fall and L hip fx. He underwent CMN fixation by Dr. Arango on 10/14 and was transitioned to acute rehab on 10/17. "I have a problem with the rehab." "Someone came into my room, he was a doctor, and told me he was going to heather my because she was trying to heather him." "That is why I got out of there." "I wanted to go home and they brought me here." He is unsure who exactly made the comments. Nursing staff and concerned b/c patient has been acting strangely and has occasional mental status changes. Currently pain in L leg 10/13. He has been having increased mobility with leg and has been noticing improvement. He also states that his, "pins haven't come out yet and at rehab they keep messing with them." He also states the injection that are putting in his stomach his causing him to have water come out of his rectum. He has been having this for 2 days. He denies any f/c/s, dizziness, lightheaded, UMANZOR, change in vision, chest pain, sob, uri sx, n/v/d, abdominal pain, dysuria, increased urg, freq, hematuria, melena, hematochezia. He follows Dr. Ellis for neurology. Chronically he has tinnitus. 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 He does not feel anything is wrong and is under the impression he is being admitted and will be discharged to home tomorrow. In ED pt remained hemodynamically stable. Head CT: 1. There are in excess of 10 hyperdense parenchymal nodules without surrounding vasogenic edema. The appearance favors multiple cavernoma's. An MRI is recommended in follow-up for further evaluation 2. Postsurgical changes of a prior left-sided craniotomy 3. Evidence of prior aneurysm embolization 4. 12 mm right-sided scalp frontal scalp nodule 5. Bifrontal encephalomalacia 6. Opacified left maxillary sinus possibly fungal etiology. Left-sided nasal turbinate engorgement versus polyps. Pt unable to undergo MRI due to prior aneurysm clipping back in 2001, unable to obtain operative report per [facility], MRI requesting report prior to scanning. Allergies Allergy/AdvReac Type Severity Reaction Status Date / Time No Known Allergies Allergy Unknown Verified 10/19/20 11:18 Home Medications Medication Instructions Recorded Confirmed Type atorvastatin 80 mg PO DAILY 10/13/20 10/19/20 History cholecalciferol (vitamin D3) 25 mcg PO DAILY 10/13/20 10/19/20 History phenytoin sodium extended 400 mg PO DAILY 10/13/20 10/19/20 History [Dilantin Extended] sodium chloride 2 g PO DAILY 10/13/20 10/19/20 History vitamins-lipotropics 2 tab PO DAILY 10/13/20 10/19/20 History bisacodyl 10 mg MS DAILY PRN #0 ea 10/17/20 10/19/20 Rx enoxaparin 40 mg SUBCUT Q24H 28 Days #0 ml 10/17/20 10/19/20 Rx docusate sodium 100 mg PO BID 10/19/20 10/19/20 History magnesium hydroxide 2,400 mg PO DAILY 10/19/20 10/19/20 History multivitamin 1 tab PO DAILY 10/19/20 10/19/20 History polyethylene glycol 3350 [Miralax] 17 g PO QDL 10/19/20 10/19/20 History sennosides-docusate sodium 1 tab-cap PO QDL 10/19/20 10/19/20 History [Senna-S] sodium phosphates [Fleet Enema] 133 ml MS DAILY 10/19/20 10/19/20 History Past Med/Surg History Medical History History of head injury History of traumatic brain injury h/o surgery HLD (hyperlipidemia) Seizure disorder SIADH (syndrome of inappropriate ADH production) Surgical History H/O clubfoot correction History of brain surgery 10/05 to TBI after falling from 2 story building off scaffolding in 2001 repair of skull fracture, jaw, cheek, upper orbital and right ear repair Hx of nasal septoplasty Family History Mother Lung cancer Father Myocardial infarction, Onset Age: 62 Grandfather (Paternal) Myocardial infarction, Onset Age: 50 Other Cancer Coronary heart disease Social History Smoking Status: Never smoker Second Hand Exposure: No; Hx Alcohol Use: Yes Alcohol type: beer Hx Substance Use: No Preferred Language: Jordanian Communication Ability: Effective Chain [place] Required: No Beliefs That Will Affect Care: None Current Living Situation: Spouse Feels Safe at Home: Yes Assistive Devices: Walker Review of Systems Review of Systems: All systems reviewed & are unremarkable except as noted in HPI & below Physical Exam Physical Exam: Constitutional: Thin, frail, vitals as above, NAD, sitting up in bed, pleasant, conversing easily, answers questions appropriately Head: Normocephalic, right eye ptosis Eyes: PERRL, conjunctivae normal, anicteric sclerae ENMT: external ear and nose normal, oropharynx normal Neck: trachea midline, no thyromegaly normal visual inspection Respiratory: normal respiratory effort, lungs clear to auscultation, no wheeze, rales, rhonchi. Normal insp/exp effort, no accessory muscle use Cardiovascular: RRR, no murmur, no edema Vessels: no JVD or carotid bruit Chest: normal inspection of chest Abdomen: normal bowel sounds, soft, nontender, no hepatosplenomegaly Musculoskeletal: no cyanosis or clubbing, extremities motor strength 5/5, left lateral hip incision dressing CDI Skin: no rashes, warm and dry normal turgor Neurologic: PERRL, EOMI, accommodation nl, no face palsy, no dysarthria CN's II-XI intact bilaterally and moves all extremities, answers all questions appropriately, appears to have difficulty with insight Psychiatric: A+Ox3, euthymic affect : deferred Results & Data Results & Data ([facility]) Vital Signs (Past 12 Hours) Vital Signs Temp Pulse Resp BP Pulse Ox 10/19/20 15:00 86 17 104/70 94 10/19/20 14:32 88 18 110/69 97 10/19/20 13:30 92 H 20 121/77 95 10/19/20 13:00 87 20 118/74 95 10/19/20 12:30 86 14 128/76 97 10/19/20 12:00 94 H 18 128/77 96 10/19/20 11:34 112 H 16 95 10/19/20 10:48 37.1 C 112 H 16 135/103 H [address]: IMPRESSION: 1. There are in excess of 10 hyperdense parenchymal nodules without surrounding vasogenic edema. The appearance favors multiple cavernoma's. An MRI is recommended in follow-up for further evaluation 2. Postsurgical changes of a prior left-sided craniotomy 3. Evidence of prior aneurysm embolization 4. 12 mm right-sided scalp frontal scalp nodule 5. Bifrontal encephalomalacia 6. Opacified left maxillary sinus possibly fungal etiology. Left-sided nasal turbinate engorgement versus polyps. orbit xray: IMPRESSION: No radiopaque foreign bodies identified within the orbits. COVID-19 Results Results COVID-19 Adm Lab Results: RBC 3.60 M/uL (4.7-6.1) L 10/19/20 WBC 7.03 K/uL (4.8-10.8) 10/19/20 Hgb 11.3 g/dL (14.0-18.0) L 10/19/20 Hct 32.4 % (42-52) L 10/19/20 Plt Count 238 K/uL (130-400) 10/19/20 Neutrophils (%) (Auto) 59.4 % 10/19/20 Lymphocytes (%) (Auto) 22.8 % 10/19/20 Monocytes # (Auto) 0.79 K/uL (0.11-0.59) H 10/19/20 Eosinophils # (Auto) 0.41 K/uL (0-0.5) 10/19/20 Immature Granulocyte % (Auto) 0.4 % 10/19/20 Neutrophils # (Auto) 4.17 K/uL (1.4-6.5) 10/19/20 Lymphocytes # (Auto) 1.60 K/uL (1.2-3.4) 10/19/20 Monocytes # (Auto) 0.79 K/uL (0.11-0.59) H 10/19/20 Eosinophils # (Auto) 0.41 K/uL (0-0.5) 10/19/20 Basophils # (Auto) 0.03 K/uL (0-0.2) 10/19/20 Immature Granulocyte # (Auto) 0.03 K/uL (0.00-0.02) H 10/19/20 Na 139 mmol/L (136-145) 10/19/20 K 3.6 mmol/L (3.5-5.1) 10/19/20 Cl 106 mmol/L (98-107) 10/19/20 CO2 28 mmol/L (21-32) 10/19/20 Anion Gap 6.0 (3-11) 10/19/20 BUN 7 mg/dl (7-18) 10/19/20 Creatinine 0.70 mg/dl (0.6-1.4) 10/19/20 BUN/Creatinine Ratio 9.8 (10-20) L 10/19/20 Glucose Level 99 mg/dl (70-99) 10/19/20 Ca 9.3 mg/dl (8.5-10.1) 10/19/20 Total Bilirubin 0.6 mg/dl (0.2-1) 10/19/20 AST/SGOT 43 U/L (15-37) H 10/19/20 ALT/SGPT 30 U/L (12-78) 10/19/20 Alkaline Phosphatase 79 U/L (45-117) 10/19/20 Total Protein 7.3 gm/dl (6.4-8.2) 10/19/20 Albumin 2.8 gm/dl (3.4-5.0) L 10/19/20 Globulin 4.5 gm/dl (2.5-4.0) H 10/19/20 Albumin/Globulin Ratio 0.6 (0.9-2) L 10/19/20 SARS-CoV-2, RNA, NAAT NEGATIVE (NEGATIVE) 10/19/20 Code Status & VTE Plan Code Status Full Code VTE Prophylaxis Plan VTE Prophylaxis will be ordered: Yes Supervising Physician Co-Signing Physician Notes Patient is a 70-year-old male with history of traumatic brain injury, seizure disorder, SIADH and other medical problems presents from rehab facility for evaluation of transient confusion. Patient is currently alert, awake, oriented while in ED. CT head showed findings suggestive of multiple cavernoma's and MRI could not be obtained due to prior aneurysmal clipping. Patient also states having diarrhea while at rehab facility. Please review HPI for complete details of presentation. On exam patient is moderately built and nourished, no apparent distress, normocephalic, lungs are clear to auscultation, S1-S2, no murmur, abdomen soft, nontender, normal bowel sounds, alert, awake, oriented, no focal neurological deficits, left hip surgical site in dressing. Patient is admitted for management of transient confusion. Currently confusion seems to be resolved. Will consult neurology for assistance. Reorient frequently to minimize delirium. Consider repeating CT head if needed. Diarrhea likely secondary to bowel regimen. Will hold bowel regimen for now. Obtain stool studies if recurrence of diarrhea. Consulted PT OT, wound care. I personally reviewed the record. Patient is interviewed and examined at bedside. Patient's care is coordinated with Veronique Reyes PA-C. Please refer to the documentation above for details of patient's presentation and for discussion of other issues.
[2020-10-19] MEDS ORDERED: ONDANSETRON INJ 2 MG/ML 2 ML VIAL IV PRN (17:51)
[2020-10-19] MEDS ORDERED: ACETAMINOPHEN 325 MG TAB PO PRN (17:51)
[2020-10-19] MEDS ORDERED: POLYETHYLENE (MIRALAX) 17 GM PACK PO PRN (17:51)
[2020-10-19] MEDS ORDERED: MAGNESIUM HYDROXIDE SUSP 30 ML UDC PO PRN (17:51)
[2020-10-19] MEDS ORDERED: ALUMINUM/MAGNESIUM SUSP 30 ML UDC PO PRN (17:51)
[2020-10-19] MEDS: ENOXAPARIN INJ 40 MG/0.4 ML SYR SQ SCH (19:57)
[2020-10-19] MEDS: DOCUSATE SODIUM 100 MG CAP PO SCH (20:01)
[2020-10-19] MEDS ORDERED: DOCUSATE SODIUM 100 MG CAP PO SCH (21:00)
[2020-10-20] MEDS: PHENYTOIN SODIUM ER 100 MG CAP PO SCH (08:49)
[2020-10-20] MEDS: CHOLECALCIFEROL 1,000 UNITS 25 MCG TAB PO SCH (08:50)
[2020-10-20] MEDS: DOCUSATE SODIUM 100 MG CAP PO SCH ×2 (08:50→21:04)
[2020-10-20] MEDS: MULTIVITAMIN TAB PO SCH (08:50)
[2020-10-20] MEDS: ATORVASTATIN 40 MG TAB PO SCH (08:50)
[2020-10-20] MEDS: SODIUM CHLORIDE 1 GM TABLET PO SCH (08:51)
[2020-10-20] MEDS ORDERED: VITAMINS LIPOTROPICS PO SCH (09:00)
[2020-10-20] MEDS ORDERED: POLYETHYLENE (MIRALAX) 17 GM PACK PO SCH (11:30)
[2020-10-20] MEDS: POLYETHYLENE (MIRALAX) 17 GM PACK PO SCH (12:42)
--- NOTE | 2020-10-20 13:20 | Hospitalist Progress Note ---
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 Pt with reported, "confusion," and stating that his was being sued. Nursing staff/ felt pt altered and was sent to ED. Pt states he just wanted to leave rehab and go home but they brought him here. According to my discussion with patient this morning, patient reiterated that he was told that his was being sued at the rehab facility and among other disagreements with them he wanted to leave the place as he reported to the admitting provider CT Head shows excess of 10 hyperdense parenchymal nodules without surrounding vasogenic edema. The appearance favors multiple cavernoma's. MRI recommended but unobtainable per systems testing laboratory technician due to unable to obtain records of aneursym clipping from 2001. Procedure done at [facility] who does not keep records past 10 years. Other findings include postsurgical changes, 12 mm right side scalp frontal nodule, opacified left maxillary sinus Pt well established with Dr. Ellis of [facility] neurology. Review of previous records did not show any previous CT head to compare. CT of sinuses from August 2010 from [facility] did show posttraumatic and p ostprocedural changes from left craniectomy with encephalomalacia as well as obstruction of left ostiomeatal unit secondary to masses of the left middle and inferior turbinates and mild bilateral maxillary sinus mucosal thickening but no air-fluid levels Patient does not currently appear confused. Possibilities include delusional episode background of chronic neurological problems. Will appreciate neurologist evaluation based on findings and history. (2) Fracture of femur, left, closed: s/p CMN on 10/[address] Arango continue PT/OT, TTWB wound care for dressing changes Patient would not want to be discharged [facility] but open to going to residential facility Case management working on this (3) History of traumatic brain injury: (4) Seizure disorder: Continue Dilantin (5) Anemia: stable 11.3 and 32.4 (6) Loose stools: pt c/o of water coming out of rectum?? unsure if kit diarrhea per med list pt was prescribed miralax, colace and senna but not narcotics Did not complain of this this morning. Continue to hold all stool softeners and monitor (7) SIADH (syndrome of inappropriate ADH production): Continue NaCl tabls Na 139 (8) Encephalomalacia on imaging study: (9) Abnormal CT of brain: Per Dr. Ellis note in past pt with hx of series of cavernous hemangioma, no prior brain imaging to review consult neuro also of note opacified L maxillary sinus ? fungal etiology with L nasal turbinate engorgement (this has been seen on prior imaging) in regards to opacified sinus ? if 2/2 to post surgical changes from injury (10) DVT prophylaxis: SQ Lovenox Dispo: Med/surg, case management consulted, pt adamant about returning to home instead of rehab, will need PT/OT eval for needs PCP: Fahad FULL CODE If no further evaluation or work-up recommended by neurology, will plan to discharge to SNF tomorrow Admission and Anticipated Discharge Date Admission Date: October 19, 2020 Subjective Patient seen and examined this morning. Patient denies any complaints Denies headache, dizziness Denies confusion, hallucinations [auditory, visual or tactile] Denies fevers, chills, nausea Denies abdominal pain, vomiting, diarrhea constipation Denies dysuria, frequency or urgency Physical Exam Constitutional: + well hydrated; no acute distress Eyes: Right eye blindness [chronic] ENMT: external ear and nose normal, oropharynx normal Respiratory: normal respiratory effort, lungs clear to auscultation Cardiovascular: RRR, no murmur, no edema Gastrointestinal (Abdomen): normal bowel sounds, soft, nontender, no hepatosplenomegaly Musculoskeletal: No pedal edema Able to raise both legs against resistance Neurologic: PERRL, EOMI, accommodation nl, no face palsy, no dysarthria Psychiatric: A+Ox3, euthymic affect Results & Data Results & Data ([facility]) Vital Signs (Past 12 Hours) Vital Signs Temp Pulse Resp BP Pulse Ox 10/20/20 07:55 36.8 C 77 18 104/[address] There are postsurgical changes of a left frontotemporal craniotomy. There is artifact from multiple metallic coil-like densities in the region [place] of [place] likely secondary to embolization of a giant aneurysm. There are multiple hyperdense parenchymal nodules numbering in excess of 10. These demonstrate no surrounding vasogenic edema. This favors the diagnosis of multiple cavernoma's. An MRI is recommended in follow-up to exclude other pathologic entities including hyperdense metastasis. There are patchy white matter hypodensities likely on a small vessel basis. There is bilateral frontal lobe encephalomalacia. There is no pathologic ventricular dilatation. There is a cavum septa pellucida and cavum vergae. There is opacification of the left frontal sinus which appears hyperdense raise the possibility of fungal etiology. There are possible left-sided nasal polyps. IMPRESSION: 1. There are in excess of 10 hyperdense parenchymal nodules without surrounding vasogenic edema. The appearance favors multiple cavernoma's. An MRI is recommended in follow-up for further evaluation 2. Postsurgical changes of a prior left-sided craniotomy 3. Evidence of prior aneurysm embolization 4. 12 mm right-sided scalp frontal scalp nodule 5. Bifrontal encephalomalacia 6. Opacified left maxillary sinus possibly fungal etiology. Left-sided nasal turbinate engorgement versus polyps.
--- NOTE | 2020-10-20 14:19 | Neurology Consultation ---
Date of Consultation October 20, 2020 Assessment & Plan (1) Transient confusion: 1. likely chronic encephalopathy due to past TBI 2. watch for sundowning 3. no narcotics for pain management 4. PT/OT -may need further rehab for left LE hip fracture 5. if becomes delirious psychiatry may be needed. Present on Admission?: Yes (2) History of traumatic brain injury: 1. no new findings on CT head with and without Present on Admission?: Yes (3) Seizure disorder: 1. seizure after TBI 2. continue dilantin ER 400 mg 3. loading dose 250 mg now, 250 mg 1900 tonight 4. recheck level tomorrow am last check 10/19/20 -4.1 5. fall precautions 6[address], no heights, no bathing or swimming alone Present on Admission?: Yes (4) Closed hip fracture: 1. PT/OT for rehab if needed 2. no narcotics. Present on Admission?: Yes Supervising Physician Co-Signing Physician Notes I have seen and discussed above patient with Dr Renee Kern, neurology Patient seen and examined history reviewed. Patient has a history of a closed head injury and an aneurysmal coil. The patient does not recall having an aneurysm. He indicates his first seizure was at age 36 and that was his only seizure. He indicates that he doesn't know of the head injury was before or after. He is described in his hospitalization last week for his hip fracture as being forgetful with periods of memory loss. While at rehab he developed the delusion that he was told that his was going to heather the doctor. He denies any headache focal neurologic complaints. Denies that he hit his head when he fell fracturing his hip. His CT of the head shows multiple hyperdensities consistent with cavernous angiomas. A CT with contrast confirms the same. There is an area of right frontal encephalomalacia and artifact from the coiling in the region of the right wiyot of Steele. Patient's labs have been unremarkable. This is with the exception of Dilantin level which is low at 4.4. Patient is orally reloaded No evidence of infection. No narcotic use. The patient is awake and alert oriented per Renee Hinds memory was 0 out of 3 at 3 minutes and had some difficulty recalling some major elements of his history. I he has right ptosis and limited mobility and vision in the right eye normal motility and colvin in the left eye there is no facial asymmetry no asymmetric weakness is noted in the upper and lowers. No flap. I suspect this patient who has a history of a traumatic brain injury encephalomalacia on scan and a history of an aneurysm has some baseline cognitive deficit. Whether or not that was worse while he was in inpatient hospitalized for his hip fracture is unclear although he was described as forgetful and having periods of memory loss. I suspect these delusions are a low level delirium for back lack of a better term or an effect of anesthesia presumed narcotic use during the hospitalization as well as the effect of hospitalization itself. Patient was orally reloaded with Dilantin Dilantin level be checked in the morning and then should be checked in about a week I have no objection to him being transferred to rehabilitation tomorrow provided he looks well in the morning. he can follow-up with Dr. Ellis. 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 He was confused and stating that his was being sued. Staff felt he was altered and was sent to [facility] ED for evaluation. He wanted to leave rehab and go home but they brought him here. Does appear to have difficulty with insight, but likely baseline given hx of TBI. CT Head shows excess of 10 hyperdense parenchymal nodules without surrounding vasogenic edema. The appearance favors multiple cavernoma's. MRI recommended but unobtainable per industrial electrical technician due to unable to obtain records of aneursym clipping from 2001. Procedure done at [facility] who does not keep records past 10 years. He does follow with Dr Ellis in our office for seizures. Allergies Allergy/AdvReac Type Severity Reaction Status Date / Time No Known Allergies Allergy Unknown Verified 10/19/20 11:18 Home Medications Medication Instructions Recorded Confirmed Type atorvastatin 80 mg PO DAILY 10/13/20 10/19/20 History cholecalciferol (vitamin D3) 25 mcg PO DAILY 10/13/20 10/19/20 History phenytoin sodium extended 400 mg PO DAILY 10/13/20 10/19/20 History [Dilantin Extended] sodium chloride 2 g PO DAILY 10/13/20 10/19/20 History vitamins-lipotropics 2 tab PO DAILY 10/13/20 10/19/20 History bisacodyl 10 mg MT DAILY PRN #0 ea 10/17/20 10/19/20 Rx enoxaparin 40 mg SUBCUT Q24H 28 Days #0 ml 10/17/20 10/19/20 Rx docusate sodium 100 mg PO BID 10/19/20 10/19/20 History magnesium hydroxide 2,400 mg PO DAILY 10/19/20 10/19/20 History multivitamin 1 tab PO DAILY 10/19/20 10/19/20 History polyethylene glycol 3350 [Miralax] 17 g PO QDL 10/19/20 10/19/20 History sennosides-docusate sodium 1 tab-cap PO QDL 10/19/20 10/19/20 History [Senna-S] sodium phosphates [Fleet Enema] 133 ml MT DAILY 10/19/20 10/19/20 History Patient History Medical History History of head injury History of traumatic brain injury h/o surgery HLD (hyperlipidemia) Seizure disorder SIADH (syndrome of inappropriate ADH production) Surgical History H/O clubfoot correction History of brain surgery 10/05 to TBI after falling from 2 story building off scaffolding in 2001 repair of skull fracture, jaw, cheek, upper orbital and right ear repair Hx of nasal septoplasty Family History Mother Lung cancer Father Myocardial infarction, Onset Age: 62 Grandfather (Paternal) Myocardial infarction, Onset Age: 50 Other Cancer Coronary heart disease Social History Smoking Status: Never smoker Second Hand Exposure: No; Do You Dip or Chew Tobacco: No; Hx Alcohol Use: Yes Alcohol type: beer Hx Substance Use: No Preferred Language: Cymro Communication Ability: Effective Multi Operation Machine Operator Required: No Beliefs That Will Affect Care: None Current Living Situation: Spouse Other Information That Helps Us Care for You: No Feels Safe at Home: Yes Assistive Devices: Walker Physical Exam Physical Exam: Physical Exam: Constitutional: appearance nourished slightly unkempt Ears, Nose, Mouth and Throat: mucous membranes moist, no injection and skin normal, eyes normal Cardiovascular: normal S-1 and S-2 and regular rate and rhythm Respiratory: clear to auscultation (CTA) and no rales, ronchi or wheeze Musculoskeletal: no peripheral edema and good distal pulses Skin: no stigmata of neurocutaneous disease noted and normal and intact Eyes: extraocular muscles intact (EOMI) and pupils equal, round and reactive to light (PERRL)-left, right eye ptosis unable to track partically blind NEUROLOGIC EXAMINATION: Mental status: Alert and interactive Oriented to full date and location Oriented to person Speech fluent with no evidence of aphasia Cranial Nerves smile eye brow raise symmetric Reflexes: Deep tendon reflexes were symmetrical decreased LE Sensory: cool and light touch, vibration intact Coordination: finger to nose no bipass Gait/Stance: Posture normal. Gait normal: with steady with steps, base, turning, heel and toe walking and tandem gait. Motor: Negative for pronator drift of out stretched arms with eyes closed. Strength: hand dermatology nurse biceps triceps 5/5, hip flex right 5/5 left 4/5, plantar flex ext 5/5, club foot on left Results & Data ([facility]) Vital Signs (Past 12 Hours) Vital Signs Temp Pulse Resp BP Pulse Ox 10/20/20 07:55 36.8 C 77 18 104/81 95 Laboratory Results Abnormal Labs 10/19/20 10/19/20 10/19/20 11:24 11:24 11:24 RBC 3.60 L Hgb 11.3 L Hct 32.4 L Holt # (Auto) 0.79 H Immature Gran # (Auto) 0.03 H BUN/Creatinine Ratio 9.8 L AST 43 H Albumin 2.8 L Globulin 4.5 H Albumin/Globulin Ratio 0.6 L Urine pH Phenytoin 4.1 L 10/19/20 12:10 RBC Hgb Hct Holt # (Auto) Immature Gran # (Auto) BUN/Creatinine Ratio AST Albumin Globulin Albumin/Globulin Ratio Urine pH 8.0 H Phenytoin Diagnostic Findings CT head w/wo-Redemonstration of multiple hyperdense parenchymal nodules. There is no surrounding vasogenic edema and no definite enhancement. The appearance again favors multiple cavernoma's. As previously stated, an MRI is recommended in follow-up for further evaluation Postsurgical changes are prior left sided craniotomy Evidence of prior aneurysm embolization Bifrontal encephalomalacia Enhancing 1 cm right frontal scalp nodule (1) Closed hip fracture Encounter type: initial encounter Laterality: left Qualified Code(s): S72.002A - Fracture of unspecified part of neck of left femur, initial encounter for closed fracture
[2020-10-20] MEDS ORDERED: PHENYTOIN SUSP 125 MG/5 ML PO STA ×2 (14:46→14:57)
[2020-10-20] MEDS ORDERED: OPTIRAY 320 100ml IV ONE (15:04)
--- NOTE | 2020-10-20 15:16 | CT Scan Report ---
CT head/brain wo/w con CT DOSE: 1547.15 mGy.cm TECHNIQUE: Noncontrast images were obtained through the brain in the axial plane. The sequence was re peated following administration of 94 Optiray 320. A dose lowering technique was utilized adhering t o the principles of ALARA. HISTORY: Multiple brain lesions COMPARISON: Noncontrast study dated 10/19/2020 FINDINGS: There are postsurgical changes of a left frontotemporal craniotomy. There is artifact from multiple m etallic coil-like densities within the region enterprise of Steele likely secondary to prior aneurysm emb olization. There are persistent hyperdense parenchymal nodules numbering in excess of 10. These demon strate no surrounding vasogenic edema. The findings again favor the diagnosis of multiple cavernoma's . As previously stated, an MRI is recommended in follow-up to exclude other pathologic entities. There are patchy white matter hypodensities likely on a small vessel basis. There is bilateral fronta l lobe encephalomalacia. There is no evidence of pathologic ventricular dilatation. There is a cavum septa pellucida and cavum vergae. There is persistent opacification of the left frontal sinus. The multiple bilateral parenchymal lesions do not demonstrate significant postcontrast enhancement. N ote is made of an enhancing 1 cm right frontal scalp nodule. The dural venous sinuses appear patent as visualized. IMPRESSION: 1. Redemonstration of multiple hyperdense parenchymal nodules. There is no surrounding vasogenic justin a and no definite enhancement. The appearance again favors multiple cavernoma's. As previously stated , an MRI is recommended in follow-up for further evaluation 2. Postsurgical changes are prior left sided craniotomy 3. Evidence of prior aneurysm embolization 4. Bifrontal encephalomalacia 5. Enhancing 1 cm right frontal scalp nodule ACT 112: Negative or not required by law. Electronically signed by: Obie Pulido M.D. 10/20/2020 3:15 PM
[2020-10-20] MEDS ORDERED: PHENYTOIN SUSP 125 MG/5 ML PO ONE ×2 (19:00)
[2020-10-20] MEDS: ENOXAPARIN INJ 40 MG/0.4 ML SYR SQ SCH (21:04)
[2020-10-21 06:03] LABS: Hematocrit (blood only) 31.5 % (42-52); Hemoglobin 10.9 g/dL (14.0-18.0); Mean Corpuscular Hemoglobin 31.5 pg (25-34); Mean Corpuscular Hgb Conc 34.6 g/dL (32-36); Mean Platelet Volume 7.9 fL (7.4-10.4); Platelet Count 248 K/uL (130-400); RDW Coefficient of Variation 12.6 % (11.5-14.5); RDW Standard Deviation 40.8 fL (36.4-46.3); Red Blood Count 3.46 M/uL (4.7-6.1); White Blood Count 6.57 K/uL (4.8-10.8)
[2020-10-21 06:30] LABS: BUN Creatinine Ratio 13.6 (10-20); Calcium 8.9 mg/dl (8.5-10.1); Creatinine Clr Calc Pharmacy 90.8 ml/min; Est GFR (African American) 109.7; Est GFR (Non-African American) 94.6
[2020-10-21] MEDS: DOCUSATE SODIUM 100 MG CAP PO SCH (08:56)
[2020-10-21] MEDS: PHENYTOIN SODIUM ER 100 MG CAP PO SCH (08:58)
[2020-10-21] MEDS: MULTIVITAMIN TAB PO SCH (08:58)
[2020-10-21] MEDS: ATORVASTATIN 40 MG TAB PO SCH (08:58)
[2020-10-21] MEDS: SODIUM CHLORIDE 1 GM TABLET PO SCH (08:58)
[2020-10-21] MEDS: CHOLECALCIFEROL 1,000 UNITS 25 MCG TAB PO SCH (08:59)
--- NOTE | 2020-10-21 09:47 | Electroencephalogram ---
EEG Procedure Note Date of Service October 21, 2020 Start / End Times Start Time: 0737 End Time: 0757 Referring Physician Renee Hinds PA-C History Confusion with history of seizure disorder traumatic brain injury and multiple cavernoma's Home Medication List Medication Instructions Recorded Confirmed Type vitamins-lipotropics 2 tab PO DAILY 10/13/20 10/19/20 History polyethylene glycol 3350 [Miralax] 17 g PO QDL 10/19/20 10/19/20 History sennosides-docusate sodium 1 tab-cap PO QDL 10/19/20 10/19/20 History [Senna-S] sodium phosphates [Fleet Enema] 133 ml NH DAILY 10/19/20 10/19/20 History atorvastatin 80 mg PO DAILY 30 Days #30 tab 10/21/20 Rx bisacodyl 10 mg NH DAILY PRN #30 ea 10/21/20 Rx cholecalciferol (vitamin D3) 25 mcg PO DAILY #30 tab 10/21/20 Rx docusate sodium 100 mg PO BID 30 Days #30 cap 10/21/20 Rx enoxaparin 40 mg SUBCUT Q24H 24 Days #9.6 ml 10/21/20 Rx magnesium hydroxide 2,400 mg PO DAILY 30 Days #3000 ml 10/21/20 Rx multivitamin 1 tab PO DAILY #30 tab 10/21/20 Rx phenytoin sodium extended 400 mg PO DAILY 30 Days #120 cap 10/21/20 Rx [Dilantin Extended] sodium chloride 2 g PO DAILY 30 Days #60 tab 10/21/20 Rx Inpatient Medication List Atorvastatin Calcium (Atorvastatin 40 Mg Tab) 80 mg PO DAILY MARITO Stop: 11/19/20 08:59 Last Admin: 10/21/20 08:58 Dose: 80 mg Documented by: [id number] Admin: 10/20/20 08:50 Dose: 80 mg Documented by: [id number] Docusate Sodium (Docusate Sodium 100 Mg Cap) 100 mg PO BID MARITO Stop: 11/18/20 20:59 Last Admin: 10/21/20 08:56 Dose: Not Given Documented by: [id number] Admin: 10/20/20 21:04 Dose: 100 mg Documented by: [id number] Admin: 10/20/20 08:50 Dose: 100 mg Documented by: [id number] Admin: 10/19/20 20:01 Dose: Not Given Documented by: [id number] Enoxaparin Sodium (Enoxaparin Inj 40 Mg/0.4 Ml Syr) 40 mg SQ Q24H MARITO Stop: 11/18/20 21:59 Last Admin: 10/20/20 21:04 Dose: 40 mg Documented by: [id number] Admin: 10/19/20 19:57 Dose: 40 mg Documented by: [id number] Multivitamins (Multivitamin Tab) 1 tab PO DAILY MARITO Stop: 11/19/20 08:59 Last Admin: 10/21/20 08:58 Dose: 1 tab Documented by: [id number] Admin: 10/20/20 08:50 Dose: 1 tab Documented by: [id number] Phenytoin Sodium (Phenytoin Sodium Er 100 Mg Cap) 400 mg PO DAILY MARITO Stop: 11/19/20 08:59 Last Admin: 10/21/20 08:58 Dose: 400 mg Documented by: [id number] Admin: 10/20/20 08:49 Dose: 400 mg Documented by: [id number] Polyethylene Glycol (Polyethylene (Miralax) 17 Gm Pack) 17 gm PO QDL MARITO Stop: 11/19/20 11:29 Last Admin: 10/20/20 12:42 Dose: 17 gm Documented by: [id number] Sodium Chloride (Sodium Chloride 1 Gm Tablet) 2 gm PO DAILY MARITO Stop: 11/19/20 08:59 Last Admin: 10/21/20 08:58 Dose: 2 gm Documented by: [id number] Admin: 10/20/20 08:51 Dose: 2 gm Documented by: [id number] Vitamin D (Cholecalciferol 1,000 Units 25 Mcg Tab) 1,000 units PO DAILY MARITO Stop: 11/19/20 08:59 Last Admin: 10/21/20 08:59 Dose: 1,000 units Documented by: [id number] Admin: 10/20/20 08:50 Dose: 1,000 units Documented by: [id number] Discontinued Medications Sodium Chloride (Nss 1000ml) 1,000 mls @ 999 mls/hr IV .Q1H1M ONE Stop: 10/19/20 12:03 Last Infusion: 10/19/20 12:21 Dose: 0 mls/hr Documented by: [id number] Admin: 10/19/20 11:28 Dose: 999 mls/hr Documented by: [id number] Ioversol (Ioversol 100ml) 94 ml IV ONCE ONE Stop: 10/20/20 15:05 Last Admin: 10/20/20 15:05 Dose: 94 ml Documented by: [id number] Phenytoin (Phenytoin Susp 125 Mg/5 Ml) 250 mg PO NOW STA Stop: 10/20/20 14:58 Last Admin: 10/20/20 15:52 Dose: 250 mg Documented by: [id number] Phenytoin (Phenytoin Susp 125 Mg/5 Ml) 250 mg PO 1900 ONE Stop: 10/20/20 19:01 Last Admin: 10/20/20 18:48 Dose: 250 mg Documented by: [id number] Description This is a 21 electrode EEG with a single channel dedicated to limited EKG. The electrodes were placed in accordance with the International 10-20 system. This EEG was done at the bedside and is of good technical quality with few or no muscle movement artifacts. Photic stimulation was performed. Hyperventilation was not. Drowsiness light sleep not recorded. Video analysis of patient movement and behavior was obtained during the tracing. Under these conditions there is evidence for background rhythm in the alpha range of 9 Hz and maximum frequency and 30 V maximal amplitude. This is maximum posterior head regions and bilaterally symmetrical. Polymorphic mid to slightly lower frequency modest amplitude theta activity is seen over the central regions in a symmetrical fashion. Beta activity seen bifrontally. Photic simulation provokes a modest driving response with no photo myogenic photoparoxysmal components. There is no evidence for potentially epileptogenic activity during the waking tracing showed Interpretation This is a normal waking EEG Clinical Correlation This EEG is normal and fails to reveal evidence for a focal or generalized encephalopathy and no evidence for potentially epileptogenic activity Johnnie Ellis MD
[2020-10-21] MEDS: POLYETHYLENE (MIRALAX) 17 GM PACK PO SCH (11:33)
--- NOTE | 2020-10-21 12:43 | Discharge Summary ---
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 Of significance pt recently hospitalized early this month / fall and L hip fx. He underwent CMN fixation by Dr. Arango on 10/14 and was transitioned to acute rehab on 10/17. "I have a problem with the rehab." "Someone came into my room, he was a doctor, and told me he was going to heather my because she was trying to heather him." "That is why I got out of there." "I wanted to go home and they brought me here." He is unsure who exactly made the comments. Nursing staff and concerned b/c patient has been acting strangely and has occasional mental status changes. Currently pain in L leg 10/13. He has been having increased mobility with leg and has been noticing improvement. He also states that his, "pins haven't come out yet and at rehab they keep messing with them." He also states the injection that are putting in his stomach his causing him to have water come out of his rectum. He has been having this for 2 days. He denies any f/c/s, dizziness, lightheaded, UMANZOR, change in vision, chest pain, sob, uri sx, n/v/d, abdominal pain, dysuria, increased urg, freq, hematuria, melena, felix tochezia. He follows Dr. Ellis for neurology. Chronically he has tinnitus. 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 He does not feel anything is wrong and is under the impression he is being admitted and will be discharged to home tomorrow. In ED pt remained hemodynamically stable. Head CT: 1. There are in excess of 10 hyperdense parenchymal nodules without surrounding vasogenic edema. The appearance favors multiple cavernoma's. An MRI is recommended in follow-up for further evaluation 2. Postsurgical changes of a prior left-sided craniotomy 3. Evidence of prior aneurysm embolization 4. 12 mm right-sided scalp frontal scalp nodule 5. Bifrontal encephalomalacia 6. Opacified left maxillary sinus possibly fungal etiology. Left-sided nasal turbinate engorgement versus polyps. Pt unable to undergo MRI due to prior aneurysm clipping back in 2001, unable to obtain operative report per [facility], MRI requesting report prior to scanning. Admission Exam Per Admitting Provider Constitutional: Thin, frail, vitals as above, NAD, sitting up in bed, pleasant, conversing easily, answers questions appropriately Head: Normocephalic, right eye ptosis Eyes: PERRL, conjunctivae normal, anicteric sclerae ENMT: external ear and nose normal, oropharynx normal Neck: trachea midline, no thyromegaly normal visual inspection Respiratory: normal respiratory effort, lungs clear to auscultation, no wheeze, rales, rhonchi. Normal insp/exp effort, no accessory muscle use Cardiovascular: RRR, no murmur, no edema Vessels: no JVD or carotid bruit Chest: normal inspection of chest Abdomen: normal bowel sounds, soft, nontender, no hepatosplenomegaly Musculoskeletal: no cyanosis or clubbing, extremities motor strength 5/5, left lateral hip incision dressing CDI Skin: no rashes, warm and dry normal turgor Neurologic: PERRL, EOMI, accommodation nl, no face palsy, no dysarthria CN's II-XI intact bilaterally and moves all extremities, answers all questions appropriately, appears to have difficulty with insight Psychiatric: A+Ox3, euthymic affect : deferred Principal Diagnosis Transient confusion Subtherapeutic phenytoin level Discharge Exam Constitutional + well hydrated; no acute distress Eyes Right ptosis [chronic] chronic visual loss in the right eye ENMT external ear and nose normal, oropharynx normal Respiratory normal respiratory effort, lungs clear to auscultation Cardiovascular RRR, no murmur, no edema Gastrointestinal (Abdomen) normal bowel sounds, soft, nontender, no hepatosplenomegaly Musculoskeletal No pedal edema Neurologic PERRL, EOMI, accommodation nl, no face palsy, no dysarthria Psychiatric A+Ox3, euthymic affect Discharge Data Allergies Allergy/AdvReac Type Severity Reaction Status Date / Time No Known Allergies Allergy Unknown Verified 10/19/20 11:18 Consultations 10/19/20 13:19 ED Decision to Admit Stat 10/19/20 16:21 Consult Neurology Routine 10/19/20 17:51 Consult Case Management - Discharge Planning Routine Ordered Studies 10/19/20 11:03 CT head/brain wo con Stat There are postsurgical changes of a left frontotemporal craniotomy. There is artifact from multiple metallic coil-like densities in the region enterprise of [place] likely secondary to embolization of a giant aneurysm. There are multiple hyperdense parenchymal nodules numbering in excess of 10. These demonstrate no surrounding vasogenic edema. This favors the diagnosis of multiple cavernoma's. An MRI is recommended in follow-up to exclude other pathologic entities including hyperdense metastasis. There are patchy white matter hypodensities likely on a small vessel basis. There is bilateral frontal lobe encephalomalacia. There is no pathologic ventricular dilatation. There is a cavum septa pellucida and cavum vergae. There is opacification of the left frontal sinus which appears hyperdense raise the possibility of fungal etiology. There are possible left-sided nasal polyps. IMPRESSION: 1. There are in excess of 10 hyperdense parenchymal nodules without surrounding vasogenic edema. The appearance favors multiple cavernoma's. An MRI is recommended in follow-up for further evaluation 2. Postsurgical changes of a prior left-sided craniotomy 3. Evidence of prior aneurysm embolization 4. 12 mm right-sided scalp frontal scalp nodule 5. Bifrontal encephalomalacia 6. Opacified left maxillary sinus possibly fungal etiology. Left-sided nasal turbinate engorgement versus polyps. 10/20/20 14:22 CT head/brain wo/w con Routine There are postsurgical changes of a left frontotemporal craniotomy. There is artifact from multiple metallic coil-like densities within the region enterprise of [place] likely secondary to prior aneurysm embolization. There are persistent hyperdense parenchymal nodules numbering in excess of 10. These demonstrate no surrounding vasogenic edema. The findings again favor the diagnosis of multiple cavernoma's. As previously stated, an MRI is recommended in follow-up to exclude other pathologic entities. There are patchy white matter hypodensities likely on a small vessel basis. There is bilateral frontal lobe encephalomalacia. There is no evidence of pathologic ventricular dilatation. There is a cavum septa pellucida and cavum vergae. There is persistent opacification of the left frontal sinus. The multiple bilateral parenchymal lesions do not demonstrate significant postcontrast enhancement. Note is made of an enhancing 1 cm right frontal scalp nodule. The dural venous sinuses appear patent as visualized. IMPRESSION: 1. Redemonstration of multiple hyperdense parenchymal nodules. There is no surrounding vasogenic edema and no definite enhancement. The appearance again favors multiple cavernoma's. As previously stated, an MRI is recommended in follow-up for further evaluation 2. Postsurgical changes are prior left sided craniotomy 3. Evidence of prior aneurysm embolization 4. Bifrontal encephalomalacia 5. 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 Pt with reported, "confusion," and stating that his was being sued. Nursing staff/ felt pt altered and was sent to ED. Pt states he just wanted to leave rehab and go home but they brought him here. According to my discussion with patient, patient reiterated that he was told that his was being sued at the rehab facility and among other disagreements with them he wanted to leave the place as he reported to the admitting provider CT Head shows excess of 10 hyperdense parenchymal nodules without surrounding vasogenic edema. The appearance favors multiple cavernoma's. MRI recommended but unobtainable per industrial maintenance tech due to unable to obtain records of aneursym clipping from 2001. Procedure done at [facility] who does not keep records past 10 years. Other findings include postsurgical changes, 12 mm right side scalp frontal nodule, opacified left maxillary sinus Pt well established with Dr. Ellis of [facility] neurology. Review of previous records did not show any previous CT head to compare. CT of sinuses from August 2010 from [facility] did show posttraumatic and postprocedural changes from left craniectomy with encephalomalacia as well as obstruction of left ostiomeatal unit secondary to masses of the left middle and inferior turbinates and mild bilateral maxillary sinus mucosal thickening but no air-fluid levels Patient does not currently appear confused. Possibilities include delusional episode in background of chronic neurological problems. Patient was evaluated by neurology who recommended follow-up outpatient (2) Fracture of femur, left, closed: s/p CMN on 10/[address] Arango Continue PT/OT, TTWB Patient would not want to be discharged back to [facility] Patient discharged to [facility] to continue rehab (3) History of traumatic brain injury: (4) Seizure disorder: Patient's phenytoin level was low at 4.1 Neurologist recommended oral loading with phenytoin and increasing to phenytoin 300 mg twice daily on discharge and for patient to recheck level in a week. Neurologist also recommended patient should follow-up with outpatient neurologist Dr. Ellis (5) Anemia: Stable 11.3 and 32.4 (6) Loose stools: pt c/o of water coming out of rectum?? unsure if kit diarrhea per med list pt was prescribed miralax, colace and senna but not narcotics Multiple stool softeners discontinued (7) SIADH (syndrome of inappropriate ADH production): Continue NaCl tabls (8) Encephalomalacia on imaging study: 10/05 to hx of TBI (9) Abnormal CT of brain: As above Total Time Total Time Spent Total Time Spent (In Minutes): 50 Total Time Includes: Examination of the Patient, Discharge Planning, Medication Reconciliation (Discussed medication changes with patient) and Communication With Other Providers Discharge Plan Discharge Items Patient Disposition: Transfer [facility] Reason For Visit: ALTERED MENTAL STATUS, S/P L HIP FX WITH CMN Discharge Diagnosis: Transient altered mental status Activity: As commented below Activity Comment: Per Physical therapist Non-emergency contact: Primary Care Provider Call non-emergency contact if: you have any medication questions Follow-up/Referrals: Johnnie Vásquez MD [Primary Care Provider] - Diet: Regular Ambulatory Orders: Phenytoin (Dilantin) (Routine) Timeframe: 1 Week Location: Determined by Patient Ordered By: Maryana Bartholomew Attending Provider Instructions: Mr. Hidalgo You presented to the hospital due to transient altered mental status. You were evaluated with CT scan of the head which showed findings consistent cavenous angiomas and old surgical findings. Your phenytoin level was low and you were loaded with phenytoin. Your phenytoin was increased to 300 mg twice a day after neurologist evaluation. Please take your medications as prescribed Please ensure follow-up with your neurologist. Please check the phenytoin level in 1 week. It was a pleasure taking care of you Pending Studies at Discharge: No Stand-Alone Forms: My [facility] Skilled Items Patient informed of condition?: Yes DNR: No Discharge Level of Care: Skilled Communicable Disease: No Discharge Prognosis: Stable Lines: None Urinary Catheter: No Medications and DC Order Prescriptions: New phenytoin [Dilantin Infatabs] 50 mg tablet,chewable 300 mg PO Q12H 30 Days Qty: 360 RF: 0 Continued vitamins-lipotropics Tablet 2 tab PO DAILY RF: 0 multivitamin Tablet 1 tab PO DAILY Qty: 30 RF: 0 atorvastatin 80 mg tablet 80 mg PO DAILY 30 Days Qty: 30 RF: 0 sodium chloride 1 gram tablet 2 g PO DAILY 30 Days Qty: 60 RF: 0 magnesium hydroxide 400 mg/5 mL Suspension 2,400 mg PO DAILY 30 Days Qty: 3000 RF: 0 bisacodyl 10 mg Suppository 10 mg CO DAILY PRN (Reason: constipation) Qty: 30 RF: 0 enoxaparin 40 mg/0.4 mL Syringe 40 mg subcut Q24H 24 Days Qty: 9.6 RF: 0 cholecalciferol (vitamin D3) 25 mcg (1,000 unit) Tablet 25 mcg PO DAILY Qty: 30 RF: 0 Discontinued phenytoin sodium extended [Dilantin Extended] 100 mg capsule 400 mg PO DAILY RF: 0 polyethylene glycol 3350 [Miralax] 17 gram Powder In Packet 17 g PO QDL RF: 0 sennosides-docusate sodium [Senna-S] 8.6-50 mg Tablet 1 tab-cap PO QDL RF: 0 Fleet Enema 19-7 gram/118 mL Enema 133 ml CO DAILY RF: 0 docusate sodium 100 mg Capsule 100 mg PO BID RF: 0 Discharge Orders: Discharge Order (Routine); Ordered 10/21/20 Ordered By: Maryana Gonzalez Admission Data Admit Date/Time: 10/19/20 15:51 Attending Provider: Maryana Gonzalez I. Admit Provider: Jamaal Alatorre Primary Care Provider: Johnnie Vásquez Other Providers: Renee Kern ; Jamaal Alatorre ; [facility] ; [facility] Other Interventions: Discharge Summary Assessment (RN) Last Done: 10/21/20 12:18
== END 2020-10-21 14:00 ==
LOC: ED 10:36 → 3N 10:36 → SUATTDRO 15:51 → 3N 17:33

== ENCOUNTER 2021-10-07 22:17 | Inpatient (IN) ==
[2021-10-07] MEDS ORDERED: SODIUM CHLORIDE 0.9% 500 ML IV STA (22:36)
[2021-10-07] MEDS ORDERED: SODIUM CHLORIDE 0.9% 1000ML 1,000 ML IV STA (22:36)
[2021-10-07] MEDS ORDERED: ONDANSETRON INJ 2 MG/ML 2 ML VIAL IV STA (22:36)
[2021-10-07 22:51] LABS: Basophils # (auto) 0.05 K/uL (0-0.2); Basophils % (auto) 0.4 %; Eosinophils # (auto) 0.43 K/uL (0-0.5); Hematocrit (blood only) 43.5 % (42-52); Hemoglobin 15.4 g/dL (14.0-18.0); Immature Granulocytes # (auto) 0.04 K/uL (0.00-0.02); Immature Granulocytes % (auto) 0.3 %; Lymphocytes # (auto) 1.71 K/uL (1.2-3.4); Lymphocytes % (auto) 12.1 %; Mean Corpuscular Hemoglobin 32.2 pg (25-34); Mean Corpuscular Hgb Conc 35.4 g/dL (32-36); Mean Corpuscular Volume 90.8 fL (80-100); Mean Platelet Volume 9.5 fL (7.4-10.4); Monocytes # (auto) 0.92 K/uL (0.11-0.59); Monocytes % (auto) 6.5 %; Neutrophils # (auto) 11.02 K/uL (1.4-6.5); Neutrophils % (auto) 77.7 %; Platelet Count 134 K/uL (130-400); RDW Coefficient of Variation 12.7 % (11.5-14.5); RDW Standard Deviation 42.3 fL (36.4-46.3); Red Blood Count 4.79 M/uL (4.7-6.1); White Blood Count 14.17 K/uL (4.8-10.8)
--- NOTE | 2021-10-07 23:23 | Emergency Department Note ---
Impression & Plan Abdominal pain, acute, right upper quadrant, Vomiting ED Provider Note INFORMANT: Patient ED PROVIDER(S): Johnnie Champion MD CHIEF COMPLAINT: Abdominal pain PLAN: Disposition: Admitted Condition: Good Outpatient prescription management: none Referral: None MEDICAL DECISION MAKING: Patient presented with abdominal pain and vomiting. He had tenderness in the right upper quadrant. He was hydrated. He was given IV Zofran. The patient declined analgesia. Laboratory testing, urinalysis, and CT imaging performed. ECG was normal. The patient had leukocytosis on CBC. Chemistry panel was unremarkable. Lactate negative. Troponin negative. Urinalysis negative. CT imaging was performed and revealed a normal appendix. No bowel pathology noted. Patient was found to have a distended gallbladder and radiology recommended ultrasound imaging. Calcification noted in the distal ureter area that was thought to be vascular. No hydronephrosis. The patient was sent for ultrasound imaging. Ultrasound imaging did raise concerns for developing acute cholecystitis. Radiology recommended HIDA scan. Patient was given a dose of IV Mefoxin. He was reassessed. His pain was improved and nausea did resolve. I discussed the need for further management in the hospital. Patient was in agreement. Consultation was made with the [facility] hospitalist, . Patient was evaluated in the ER for further management. Triage Nursing notes reviewed and agree them. Vital Signs: reviewed and remarkable for no significant abnormalities Differential diagnosis: Appendicitis, testicular torsion, infections, diverticulitis, UTI, obstruction, mesenteric ischemia, aortic pathology, inflammatory bowel disease, renal colic, PUD, pancreatitis, biliary pathology, hernia, volvulus, constipation, as well as other pathologies. Diagnostics interpreted by me: EC Lead ECG performed and revealed Normal sinus rhythym at 82, normal Marshall, QRS normal. No elevation or depression. No PACs or PVCs Cardiac Monitoring: Cardiac monitoring ordered by me: The patient was placed on continuous cardiac monitoring and observed. It revealed a normal sinus rhythm at 83 beats per minute without ectopy or evidence of dysrhythmia. Imaging studies: CT imaging as above. HPI: The patient is a 71year old male who presents to the Emergency Room with complaints of right upper quadrant abdominal pain. This started about 2 days ago and is worsening. The patient also notes the following associated symptoms, nausea and vomiting today x2. The patient has taken no medication for relieving factors. Current pain is rated as 7/10. Patient does admit to drinking alcohol on a regular basis.Pt denies LOC, headache, fevers, chills, diaphoresis, visual changes, neck pain, chest pain, breathing difficulties, back pain, melena, hematochezia, urinary symptoms, numbness, weakness, lymphadenopathy, rash, or other complaints. ROS: See above HPI for pertinent positives & negatives. A total of 10 systems reviewed and were otherwise negative. PAST MEDICAL HISTORY:See Below , cerebral aneurysm, SIADH PAST SURGICAL HISTORY:See Below, FAMILY HISTORY:See Below SOCIAL HISTORY:See Below, +etoh HOME MEDICATIONS:See Below ALLERGIES:See Below VITALS:See Below PHYSICAL EXAMINATION: GENERAL: Awake, alert, uncomfortable-appearing, in no distress HENT: Normocephalic, atraumatic. Oropharynx unremarkable. EYES: Normal conjunctiva. Sclera non-icteric. NECK: Inspection normal. Non-tender. Supple. No nuchal rigidity. FROM. No masses. RESPIRATORY: Clear to auscultation. No wheezes. No rales. Normal respiratory effort. CARDIAC: Normal rate. Normal rhythm. No murmurs. No rubs. Extremities warm and well perfused. Pulses equal. No JVD. GI: Soft, non-distended. Right upper quadrant tenderness to palpation. No rebound or guarding. No masses. RECTAL: Deferred. MUSCULOSKELETAL: Atraumatic. Chest examination reveals no tenderness. The back is symmetrical on inspection without obvious abnormality. There is no CVA tenderness to palpation. No joint edema. LOWER EXTREMITIES: Calves are equal size bilaterally and non-tender. No edema. No discoloration. NEURO: Normal sensorium. No sensory or motor deficits noted. SKIN: No rash or jaundice noted. Johnnie Champion MD Past Med/Surg History Medical History History of head injury History of traumatic brain injury h/o surgery HLD (hyperlipidemia) Seizure disorder SIADH (syndrome of inappropriate ADH production) Surgical History H/O clubfoot correction History of brain surgery / to TBI after falling from 2 story building off scaffolding in 2001 repair of skull fracture, jaw, cheek, upper orbital and right ear repair Hx of nasal septoplasty Family History Mother Lung cancer Father Myocardial infarction, Onset Age: 62 Grandfather (Paternal) Myocardial infarction, Onset Age: 50 Other Cancer Coronary heart disease Social History Smoking Status: Never smoker Second Hand Exposure: No; Hx Alcohol Use: Yes Alcohol type: beer Hx Substance Use: No Preferred Language: Maltese Communication Ability: Effective Ampoule Filler And Sealer Required: No Beliefs That Will Affect Care: None Current Living Situation: Spouse Feels Safe at Home: Yes Assistive Devices: Walker Allergies Allergies Allergy/AdvReac Type Severity Reaction Status Date / Time No Known Allergies Allergy Unknown Verified 10/07/21 23:40 Home Meds Home Medications Medication Instructions Recorded Confirmed atorvastatin 80 mg tablet 80 mg PO DAILY 10/07/21 10/07/21 cholecalciferol (vitamin D3) 25 25 mcg PO DAILY 10/07/21 10/07/21 mcg (1,000 unit) tablet (Vitamin D3) phenytoin sodium extended 100 mg 400 mg PO DAILY 10/07/21 10/07/21 capsule (Dilantin Extended) sodium chloride 1 gram tablet 2 g PO DAILY 10/07/21 10/07/21 Results & Data (ED) Vital Signs Vital Signs - 24 hr 10/07/21 22:25 10/07/21 23:08 10/08/21 00:18 Temperature 36.9 C Temperature Source Oral Pulse Rate 88 88 Pulse Rate [Apical] 88 92 H Respiratory Rate 20 20 20 Respiratory Effort / Characteristics Non-Labored Spontaneous Respiratory Depth Normal Blood Pressure 141/97 H Blood Pressure [Right Arm] 134/85 127/80 Blood Pressure Mean 111 Blood Pressure Mean [Right Arm] 101 95 Pulse Oximetry 97 95 97 Oxygen Delivery Method Room Air Room Air Room Air Sepsis Recent Fever Within 48 Hours No Sepsis New/Unexplained Change in Mental Status No Sepsis Action Taken by Nursing No Action Required 10/08/21 01:48 Temperature Temperature Source Pulse Rate Pulse Rate [Apical] 85 Respiratory Rate 18 Respiratory Effort / Characteristics Respiratory Depth Blood Pressure Blood Pressure [Right Arm] 112/71 Blood Pressure Mean Blood Pressure Mean [Right Arm] 84 Pulse Oximetry 96 Oxygen Delivery Method Room Air Sepsis Recent Fever Within 48 Hours Sepsis New/Unexplained Change in Mental Status Sepsis Action Taken by Nursing Laboratory Data Result diagrams: 10/07/21 22:30 10/07/21 22:55 Lab Results 10/07/21 10/07/21 10/07/21 Range/Units 22:30 22:55 22:55 WBC 14.17 H (4.8-10.8) K/uL RBC 4.79 (4.7-6.1) M/uL Hgb 15.4 (14.0-18.0) g/dL Hct 43.5 (42-52) % MCV 90.8 (80-100) fL MCH 32.2 (25-34) pg MCHC 35.4 (32-36) g/dL RDW Std Deviation 42.3 (36.4-46.3) fL RDW Coeff of Nnamdi 12.7 (11.5-14.5) % Plt Count 134 (130-400) K/uL MPV 9.5 (7.4-10.4) fL Immature Gran % (Auto) 0.3 % Neut % (Auto) 77.7 % Lymph % (Auto) 12.1 % Jackson % (Auto) 6.5 % Eos % (Auto) 3.0 % Baso % (Auto) 0.4 % Neut # (Auto) 11.02 H (1.4-6.5) K/uL Lymph # (Auto) 1.71 (1.2-3.4) K/uL Jackson # (Auto) 0.92 H (0.11-0.59) K/uL Eos # (Auto) 0.43 (0-0.5) K/uL Baso # (Auto) 0.05 (0-0.2) K/uL Immature Gran # (Auto) 0.04 H (0.00-0.02) K/uL Sodium 132 L (136-145) mmol/L Potassium 4.2 (3.5-5.1) mmol/L Chloride 97 L (98-107) mmol/L Carbon Dioxide 28 (21-32) mmol/L Anion Gap 7 (3-11) BUN 11 (6-23) mg/dl Creatinine 0.71 (0.6-1.4) mg/dl Est Cr Clr Drug Dosing 90.1 ml/min Est GFR ( Amer) 110.2 ml/min Est GFR (Non-Af Amer) 95.1 ml/min BUN/Creatinine Ratio 15.5 (10-20) Glucose 98 (70-99(Fasting)) mg/dl Lactate 1.2 (0.4-2.0) mmol/L Calcium 8.9 (8.5-10.1) mg/dl Total Bilirubin 0.4 (0.2-1.0) mg/dl AST 20 (13-39) U/L ALT 15 (7-52) U/L Alkaline Phosphatase 79 (34-104) U/L Troponin I (0-0.04) ng/ml Total Protein 7.0 (6.0-8.3) gm/dl Albumin 4.0 (3.4-5.0) gm/dl Globulin 3.0 (2.5-4.0) gm/dl Albumin/Globulin Ratio 1.3 (0.9-2) Lipase 17 (11-82) U/L Urine Color Urine Appearance (Clear) Urine pH (4.5-7.5) Ur Specific [place] (1.000-1.030) Urine Protein (Negative) Urine Glucose (UA) (Negative) Urine Ketones (Negative) Urine Blood (Negative) Urine Nitrite (Negative) Urine Bilirubin (Negative) Urine Urobilinogen (Negative) Ur Leukocyte Esterase (Negative) 10/07/21 10/07/21 Range/Units 22:55 23:50 WBC (4.8-10.8) K/uL RBC (4.7-6.1) M/uL Hgb (14.0-18.0) g/dL Hct (42-52) % MCV (80-100) fL MCH (25-34) pg MCHC (32-36) g/dL RDW Std Deviation (36.4-46.3) fL RDW Coeff of Nnamdi (11.5-14.5) % Plt Count (130-400) K/uL MPV (7.4-10.4) fL Immature Gran % (Auto) % Neut % (Auto) % Lymph % (Auto) % Jackson % (Auto) % Eos % (Auto) % Baso % (Auto) % Neut # (Auto) (1.4-6.5) K/uL Lymph # (Auto) (1.2-3.4) K/uL Jackson # (Auto) (0.11-0.59) K/uL Eos # (Auto) (0-0.5) K/uL Baso # (Auto) (0-0.2) K/uL Immature Gran # (Auto) (0.00-0.02) K/uL Sodium (136-145) mmol/L Potassium (3.5-5.1) mmol/L Chloride (98-107) mmol/L Carbon Dioxide (21-32) mmol/L Anion Gap (3-11) BUN (6-23) mg/dl Creatinine (0.6-1.4) mg/dl Est Cr Clr Drug Dosing ml/min Est GFR ( Amer) ml/min Est GFR (Non-Af Amer) ml/min BUN/Creatinine Ratio (10-20) Glucose (70-99(Fasting)) mg/dl Lactate (0.4-2.0) mmol/L Calcium (8.5-10.1) mg/dl Total Bilirubin (0.2-1.0) mg/dl AST (13-39) U/L ALT (7-52) U/L Alkaline Phosphatase (34-104) U/L Troponin I < 0.03 (0-0.04) ng/ml Total Protein (6.0-8.3) gm/dl Albumin (3.4-5.0) gm/dl Globulin (2.5-4.0) gm/dl Albumin/Globulin Ratio (0.9-2) Lipase (11-82) U/L Urine Color Yellow Urine Appearance Clear (Clear) Urine pH 8.0 H (4.5-7.5) Ur Specific [place] 1.012 (1.000-1.030) Urine Protein Negative (Negative) Urine Glucose (UA) Negative (Negative) Urine Ketones Negative (Negative) Urine Blood Negative (Negative) Urine Nitrite Negative (Negative) Urine Bilirubin Negative (Negative) Urine Urobilinogen Negative (Negative) Ur Leukocyte Esterase Negative (Negative) Administered Medications Sodium Chloride (Nss 1000ml) 1,000 mls @ 125 mls/hr IV .Q8H STA Stop: 10/08/21 06:35 Last Admin: 10/07/21 23:09 Dose: 125 mls/hr Documented by: [id number] Cefoxitin Sodium (Mefoxin) 2,000 mg in 60 mls @ 100 mls/hr IV NOW STA Stop: 10/08/21 02:21 Last Admin: 10/08/21 01:55 Dose: 100 mls/hr Documented by: [id number] Discontinued Medications Sodium Chloride (Nss) 500 mls @ 999 mls/hr IV .Q31M STA Stop: 10/07/21 23:06 Last Infusion: 10/07/21 23:40 Dose: 0 mls/hr Documented by: [id number] Admin: 10/07/21 23:09 Dose: 999 mls/hr Documented by: [id number] Ondansetron HCl (Ondansetron Inj 2 Mg/Ml 2 Ml Vial) 4 mg IV NOW STA Stop: 10/07/21 22:37 Last Admin: 10/07/21 23:09 Dose: 4 mg Documented by: [id number] Discharge Plan Visit Data Chief Complaint: Abdominal Pain Stated Complaint: LRQ ABDOMINAL PAIN ED Provider: Johnnie Champion Discharge Problem: Abdominal pain, acute, right upper quadrant, Vomiting Forms Stand Alone Forms: [facility] Prescriptions Prescriptions: No Action atorvastatin 80 mg tablet 80 mg PO DAILY RF: 0 sodium chloride 1 gram tablet 2 g PO DAILY RF: 0 phenytoin sodium extended [Dilantin Extended] 100 mg capsule 400 mg PO DAILY RF: 0 cholecalciferol (vitamin D3) [Vitamin D3] 25 mcg (1,000 unit) Tablet 25 mcg PO DAILY RF: 0 Referrals Referrals: Johnnie Vásquez MD [Primary Care Provider] -
[2021-10-07 23:32] LABS: Albumin Globulin Ratio 1.3 (0.9-2); BUN Creatinine Ratio 15.5 (10-20); Bilirubin,Total 0.4 mg/dl (0.2-1.0); Calcium 8.9 mg/dl (8.5-10.1); Creatinine Clr Calc Pharmacy 90.1 ml/min; Est GFR (African American) 110.2 ml/min; Est GFR (Non-African American) 95.1 ml/min; Potassium 4.2 mmol/L (3.5-5.1)
[2021-10-08 00:04] LABS: Appearance Urine Clear (Clear); Bilirubin Urine Negative (Negative); Blood Urine Negative (Negative); Color Urine Yellow; Glucose Urine UA Negative (Negative); Ketones Urine Negative (Negative); Leukocyte Esterase Urine Negative (Negative); Nitrite Urine Negative (Negative); Protein Urine Negative (Negative); Specific Gravity Urine 1.012 (1.000-1.030); Urobilinogen Urine Negative (Negative)
[2021-10-08] MEDS ORDERED: cefOXitin 2,000 MG/60 ML BAG IV STA (01:46)
[2021-10-08] MEDS ORDERED: ONDANSETRON INJ 2 MG/ML 2 ML VIAL IV PRN ×2 (04:52→14:32)
[2021-10-08] MEDS ORDERED: LORazepam 3 MG/6 ML VIAL IV PRN (04:52)
[2021-10-08] MEDS ORDERED: LORazepam 2 MG/4 ML VIAL IV PRN (04:52)
[2021-10-08] MEDS ORDERED: ACETAMINOPHEN 325 MG TAB PO PRN (04:52)
[2021-10-08] MEDS ORDERED: LORazepam 1 MG/2 ML VIAL IV PRN (04:52)
[2021-10-08] MEDS ORDERED: MULTI-VITAMIN INFUSION 10 ML, THIAMINE HCL 100 MG, FOLIC ACID 1 MG in SODIUM CHLORIDE 0... IV ONE (04:52)
[2021-10-08] MEDS ORDERED: PIPERACILL/TAZOBAC CONSULT ACTIVE PRN (04:52)
[2021-10-08] MEDS ORDERED: HYDROmorphone INJ 0.5 MG/0.5 ML SYR IV PRN ×3 (04:52→16:44)
[2021-10-08] MEDS ORDERED: ATIVAN IV ALCOHOL WITHDRAWL IV PRN (04:52)
[2021-10-08] MEDS ORDERED: PIPERACILLIN/TAZOBACTAM 4.5 GM in DEXTROSE 5% 100 ML IV ONE (05:30)
--- NOTE | 2021-10-08 06:08 | History and Physical Report ---
DATE OF ADMISSION: 10/08/2021. CHIEF COMPLAINT: Abdominal pain. 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 Comes because of abdominal pain. The patient is having right side abdominal pain for the last 4 days, but the last 2 days it got worse and today he has vomited a couple of times, that is why he came to the ER. Denies any fever or chills. Normal bowel and bladder movements. No chest pain, no shortness of breath, no cough, no headache, no blurred visions, no earache, no runny nose, no sore throat. Currently, resting comfortably and hemodynamically stable. ALLERGIES: No known drug allergies. PAST MEDICAL HISTORY: As mentioned above. PAST SURGICAL HISTORY: Colonoscopy,incision of wind pipe emergency, repair of skull fracture, jaw, cheek, uppr orbital ,right ear repair due to accident from falling from a two-j[employer] high building, bilateral ear surgery following trauma, left hip repair, repair of nasal septum, revision of foot and ankle. MEDICATIONS: The patient is on atorvastatin 80 mg p.o. daily, vitamin D 25 mcg p.o. daily, Dilantin 100 mg p.o. daily, sodium chloride 2 g p.o. daily. FAMILY HISTORY: Significant for mother had lung cancer, father had AZ, maternal grandfather had AZ, paternal grandfather had AZ, maternal grandmother at age of 99. SOCIAL HISTORY: , no smoking. Alcohol, drinks three beers every day. No drug use. REVIEW OF SYSTEMS: As per HPI. Rest of review of systems is negative. PHYSICAL EXAMINATION: GENERAL: The patient is of moderate build, not in acute distress. VITAL SIGNS: Temperature 36.9, pulse 74, respiratory rate 16, blood pressure 116/74, oxygen 94% on room air. HEENT: Right eye is blind; left eye, pupils are reactive to light. Oral mucosa moist. Absent dentition. NECK: No neck masses seen. CARDIOVASCULAR: S1 and S2 heard. Regular rate and rhythm. No murmur, no gallop. RESPIRATORY SYSTEM: Normal AP diameter. No accessory muscle use. No wheezing, no crackles. ABDOMEN: Soft, bowel sounds present. Mild right upper quadrant tenderness. No guarding, no rigidity, no distention. CENTRAL NERVOUS SYSTEM: Cranial nerves II-XII grossly intact, nonfocal. EXTREMITIES: No edema, no erythema. LABORATORY DATA: WBC 14.17, hemoglobin 15.4, hematocrit 45.5, platelets 134. Sodium 132, potassium 4.2, chloride 97, bicarbonate 28, BUN 11, creatinine 0.7, serum glucose 198, lactate 1.2, calcium 8.9, total bilirubin 0.4, AST 20, ALT 15, alkaline phosphatase 79. Troponin I less than 0.03. Urinalysis negative. SARS-CoV-2 RNA negative. IMAGING DATA: Gallbladder ultrasound, preliminary report shows distended gallbladder with sludge in the neck area. Positive Burns sign. Borderline thickness of the gallbladder wall, which measures 0.3 cm. No pericholecystic fluid, no biliary dilatation. The findings are somewhat equivocal for acute cholecystitis, but early acute cholecystitis could have this appearance, clinically correlate. Suggest HIDA scan. CT of the abdomen and pelvis, preliminary report shows no bowel obstruction or perforation, normal appendix, colonic diverticulosis, no evidence of acute diverticulitis, nonspecific gallbladder distention without pericholecystic fat stranding or fluid, noncalcified gallstones. No evidence of hydronephrosis or ureteral dilatation. EKG: Normal sinus rhythm, sinus arrhythmia at a rate of 82, no significant change was found. ASSESSMENT AND PLAN: This is a 71-year-old male who presents with right-sided abdominal pain with possible acute cholecystitis. 1. Right-sided abdominal pain with tenderness: Imaging studies, CT of the abdomen and ultrasound, preliminary report showed possible acute cholecystitis. HIDA scan recommended. Will place the patient n.p.o., IV Zosyn, IV antiemetics and IV pain medicines p.r.n. Consult general surgery in the a.m. for further recommendations. The patient has leukocytosis. 2. Alcoholism: The patient drinks three beers every day. Will place him on gabapentin protocol and Ativan p.r.n. and banana bag and IV thiamine and IV folic acid. 3. History of SIADH: Continue salt tablets and monitor the sodium levels. 4. Hyperlipidemia: Continue statin. 5. History of traumatic brain injury and history of seizures: On Dilantin. Follow the Dilantin levels. 6. Deep venous thrombosis prophylaxis: Sequential compression devices for now. DISPOSITION: Closely monitor in medical floor. Expect to discharge home and follow with family doctor. Job ID: [id number] [facility]ITALDalila
[2021-10-08 06:35] LABS: Hematocrit (blood only) 43.2 % (42-52); Hemoglobin 14.9 g/dL (14.0-18.0); Mean Corpuscular Hemoglobin 31.7 pg (25-34); Mean Corpuscular Hgb Conc 34.5 g/dL (32-36); Mean Corpuscular Volume 91.9 fL (80-100); Mean Platelet Volume 8.3 fL (7.4-10.4); Platelet Count 225 K/uL (130-400); RDW Coefficient of Variation 12.8 % (11.5-14.5); RDW Standard Deviation 43.6 fL (36.4-46.3); White Blood Count 9.85 K/uL (4.8-10.8)
[2021-10-08 06:36] LABS: BUN Creatinine Ratio 13.2 (10-20); Calcium 8.9 mg/dl (8.5-10.1); Creatinine Clr Calc Pharmacy 92.5 ml/min; Est GFR (African American) 112.1 ml/min; Est GFR (Non-African American) 96.8 ml/min; Potassium 3.9 mmol/L (3.5-5.1)
[2021-10-08 06:41] LABS: Basophils # (auto) 0.02 K/uL (0-0.2); Basophils % (auto) 0.2 %; Eosinophils # (auto) 0.15 K/uL (0-0.5); Eosinophils % (auto) 1.5 %; Immature Granulocytes # (auto) 0.01 K/uL (0.00-0.02); Immature Granulocytes % (auto) 0.1 %; Lymphocytes # (auto) 2.13 K/uL (1.2-3.4); Lymphocytes % (auto) 21.6 %; Monocytes % (auto) 12.2 %; Neutrophils # (auto) 6.34 K/uL (1.4-6.5); Neutrophils % (auto) 64.4 %
--- NOTE | 2021-10-08 06:54 | CT Scan Report ---
CT SCAN OF THE ABDOMEN AND PELVIS WITHOUT IV CONTRAST CLINICAL HISTORY: Right upper quadrant abdominal pain. Nausea and vomiting. COMPARISON STUDY: No priors. TECHNIQUE: CT scan of the abdomen and pelvis is performed from the lung bases to the proximal femora. Images are reviewed in the axial, sagittal, and coronal planes. IV contrast was not administered for this examination. Note that the examination was performed in suboptimal fashion without oral and IV contrast. A dose lowering technique was utilized adhering to the principles of ALARA. CT DOSE: 309.69 mGy.cm FINDINGS: Lung bases: The heart is normal in size and without pericardial effusion. The coronary arteries are d ensely calcified. There are scattered calcified granulomas. The lung bases are otherwise clear noting dependent atelectasis. A small hiatal hernia is noted. The distal esophagus appears circumferentiall y thick walled. Liver: The unenhanced liver is normal in size, contour, and attenuation. There is no intrahepatic carmen iary ductal dilatation. A 1.6 cm cyst is noted in the right lobe. Gallbladder: The gallbladder is distended. The wall appears thickened and there is mild pericystic in flammation. Spleen: Normal in size and attenuation. Pancreas: The unenhanced pancreas is mildly atrophic and grossly unremarkable. Adrenal glands: Unremarkable. Kidneys: The unenhanced kidneys are normal in size and without hydronephrosis. There are no renal gio culi identified. There is no evidence of contour deforming renal mass lesion. Renal sinus cysts are n oted on the left. Abdominal vasculature: The abdominal aorta is normal in course and caliber noting moderate to advance d atherosclerotic calcification. An infrarenal IVC filter is in place. Bowel: There is mild colonic diverticulosis without CT evidence of acute diverticulitis. No bowel obs truction is seen. Duodenal diverticula are noted. The appendix is well-visualized and normal. Peritoneum: There is no intraperitoneal free air or abdominal ascites. There is a fat-containing umbi lical hernia. Lymphadenopathy: None. Pelvic viscera: The prostate gland is enlarged and heterogeneous. The bladder is distended. The bladd er wall appears mildly thickened and trabeculated suggesting chronic outlet obstruction. There is a s mall fat-containing right inguinal hernia. Surgical clips are noted along the spermatic cord. Skeletal structures: The skeletal structures are osteopenic. There is mild to moderate lumbosacral sp ondylosis. No lytic or blastic lesions are seen. Postoperative change is noted in the left proximal f emur. IMPRESSION: 1. Suboptimal examination without oral and IV contrast. 2. The gallbladder is distended and appears mildly thick walled with mild surrounding inflammation. C ortical clinically for evidence of acute cholecystitis. This could be further assessed with ultrasoun d if clinically warranted. 3. The distal esophagus appears circumferentially thick walled. Correlate clinically for evidence of esophagitis. 4. Prostatomegaly with significant bladder distention and evidence of chronic outlet obstruction. 5. Additional findings as above. ACT 112: Negative or not required by law. Electronically signed by: Marcelino Ramirez M.D. 10/08/2021 6:53 AM
--- NOTE | 2021-10-08 06:57 | Ultrasound Report ---
ULTRASOUND RIGHT UPPER QUADRANT ABDOMEN CLINICAL HISTORY: Abnormal gallbladder on CT. Right upper quadrant abdominal pain. COMPARISON STUDY: Abdominal CT performed earlier the same day 10/07/2021. TECHNIQUE: Real-time, grayscale, and color flow sonography of the right upper quadrant of the abdomen was performed. Images are reviewed in the transverse and longitudinal planes. FINDINGS: Liver: The liver is normal in size and heterogeneous in echotexture. Portions of the left lobe are ob scured by overlying bowel gas. There is no intrahepatic biliary ductal dilatation. The main portal ve in is patent. Gallbladder: The gallbladder is distended and contains biliary sludge. No definite shadowing gallston es are identified. The gallbladder wall is top normal in thickness 2 minimally thickened measuring up to 3 mm. No pericholecystic fluid is identified. A sonographic Burns's sign is reportedly present. The common bile duct measures up to 0.4 cm in diameter. Pancreas: Visualized portions of the pancreatic head are normal in appearance. The majority of the pa ncreas was not visualized due to overlying bowel gas. The splenic vein is patent. Right kidney: Survey images of the right kidney demonstrate mild cortical atrophy. Echotexture is nor mal. There is no hydronephrosis. Ascites: None. IMPRESSION: 1. Distended gallbladder with a mildly thickened wall and biliary sludge in the region of the neck. A positive Burns sign is reportedly present, and findings are suspicious for acute cholecystitis. Duncan gical consultation is advised. 2. There is no intra or extrahepatic biliary ductal dilatation. ACT 112: Negative or not required by law. Electronically signed by: Marcelino Ramirez M.D. 10/08/2021 6:56 AM
--- NOTE | 2021-10-08 07:40 | Surgery Consultation ---
Date of Consultation October 08, 2021 Assessment & Plan (1) Acute cholecystitis: This is a 71y M with a PMH of TBI, seizure disorder, HLD, SIADH who presents to the [facility] ED on 10/07/20 with complaints of right sided abdominal pain over the past several days that has progressively worsened. CT a/p revealed findings of gallbladder distention with thickened gb wall and surrounding inflammation. RUQ US confirmed findings of a distended gallbladder with a mildly thickened wall, biliary sludge, and a + burns's signs c/f acute cholecystitis. No biliary ductal dilation identified. Labs yesterday revealed a WBC 14 (today is 9), and normal LFTs. Currently VSS and patient is afebrile. On exam patient's abdomen is soft, with discomfort noted to palpation more so in the mid/lower R abdomen. He is currently receiving a banana bag for his history of alcohol use. For now continue patient NPO with IVF and IV abx and we will discuss with the patient options for surgical planning. Supervising Physician Co-Signing Physician Notes pnt s&e, labs and imaging reviewed, agree with above. 71 y/o male with cholecystitis. Pain improved. Per patient had fatty meals prior to onset and yesterday that made it worse. afvss, abd soft, mild ttp on right, no guarding. Labs normalized. US and CT reviewed suggestive of cholecystitis. Patient elects for surgery this admission. plan for laparoscopic cholecystectomy with possible cholangiogram risks discussed to include but not limited to bleeding, infection, retained stone, bile leak, open surgery, damage to surrounding structures including bile duct, need for future or more extensive surgery, failure to treat symptoms, and risks of anesthesia. likely d/c tomorrow History of Present Illness Attending Physician: Issa Schultz MD History of Present Illness This is a 71y M with a PMH of TBI, seizure disorder, HLD, SIADH who presents to the [facility] ED on 10/07/20 with complaints of right sided abdominal pain. Patient reports the pain has started over the last several days and has progressively worsened. He says his pain was mostly in the upper and R sided abdomen and rated it's severity an 8/10 and described it as constant. He came in via ambulance yesterday for further evaluation. In the ER a CT a/p revealed findings of gallbladder distention with thickened gb wall and surrounding inflammation. RUQ US confirmed findings of a distended gallbladder with a mildly thickened wall, biliary sludge, and a + burns's signs c/f acute cholecystitis. No biliary ductal dilation identified. Patient denies any association with food and has been eating okay without issues. Reports this is the first episode of pain like this. Has no issues eating spicy/greasy foods in the past. No prior abdominal surgical history. Denies fevers/chills, SOB/CP, change in bowel habits, or back pain. He did vomit x2 yesterday. He currently feels improvement in his symptoms since admission, rating his pain a 3/10 at the moment. The pain is now lower on his right sided abdomen. The last he ate anything was around 4pm yesterday which was soup. Allergies Allergy/AdvReac Type Severity Reaction Status Date / Time No Known Allergies Allergy Unknown Verified 10/07/21 23:40 Home Medications Medication Instructions Recorded Confirmed Type atorvastatin 80 mg tablet 80 mg PO DAILY 10/07/21 10/07/21 History cholecalciferol (vitamin D3) 25 25 mcg PO DAILY 10/07/21 10/07/21 History mcg (1,000 unit) tablet (Vitamin D3) phenytoin sodium extended 100 mg 400 mg PO DAILY 10/07/21 10/07/21 History capsule (Dilantin Extended) sodium chloride 1 gram tablet 2 g PO DAILY 10/07/21 10/07/21 History Patient History Medical History History of head injury History of traumatic brain injury h/o surgery HLD (hyperlipidemia) Seizure disorder SIADH (syndrome of inappropriate ADH production) Surgical History H/O clubfoot correction History of brain surgery 2/ to TBI after falling from 2 story building off scaffolding in 2001 repair of skull fracture, jaw, cheek, upper orbital and right ear repair Hx of nasal septoplasty Family History Mother Lung cancer Father Myocardial infarction, Onset Age: 62 Grandfather (Paternal) Myocardial infarction, Onset Age: 50 Other Cancer Coronary heart disease Social History Smoking Status: Never smoker Second Hand Exposure: No; Do You Dip or Chew Tobacco: No; Tobacco Cessation Education Requested by Patient: No Hx Alcohol Use: Yes Alcohol type: beer Hx Substance Use: No Preferred Language: Wolof Communication Ability: Effective Clothes Presser Required: No Beliefs That Will Affect Care: None Current Living Situation: Spouse Current Living Situation Comment: lives with Other Information That Helps Us Care for You: No Feels Safe at Home: Yes Safety Concerns: Feels Safe At This Time Assistive Devices: Glasses Review of Systems Constitutional: no fever and no chills Respiratory: no dyspnea Cardiovascular: no chest pain Gastrointestinal: + abdominal pain (R sided, constant), + nausea and + vomiting; no change in bowel habits Musculoskeletal: no back pain Physical Exam Physical Exam: awake/alert Constitutional: no acute distress Respiratory: normal respiratory effort Gastrointestinal (Abdomen): Inspection/Auscultation: abdomen not distended Percussion/Palpation: + abdomen tender (mostly in mid/lower R abdomen), + guarding (voluntary guarding) and abdomen soft Results & Data ([facility]) Vital Signs (Past 12 Hours) Vital Signs Temp Pulse Pulse Pulse Resp BP BP 10/08/21 07:11 37.0 C 81 16 103/66 10/08/21 05:05 36.7 C 86 18 130/76 10/08/21 04:57 36.7 C 86 18 130/76 10/08/21 04:35 36.7 C 86 18 130/76 10/08/21 03:00 74 16 116/74 10/08/21 01:48 85 18 112/71 10/08/21 00:18 92 H 20 127/80 10/07/21 23:08 88 88 20 134/85 10/07/21 22:25 36.9 C 88 20 141/97 H Pulse Ox 10/08/21 07:11 99 10/08/21 05:05 97 10/08/21 04:57 97 10/08/21 04:35 97 10/08/21 03:00 94 10/08/21 01:48 96 10/08/21 00:18 97 10/07/21 23:08 95 10/07/21 22:[address] SCAN OF THE ABDOMEN AND PELVIS WITHOUT IV CONTRAST CLINICAL HISTORY: Right upper quadrant abdominal pain. Nausea and vomiting. COMPARISON STUDY: No priors. TECHNIQUE: CT scan of the abdomen and pelvis is performed from the lung bases to the proximal femora. Images are reviewed in the axial, sagittal, and coronal planes. IV contrast was not administered for this examination. Note that the examination was performed in suboptimal fashion without oral and IV contrast. A dose lowering technique was utilized adhering to the principles of ALARA. CT DOSE: 309.69 mGy.cm FINDINGS: Lung bases: The heart is normal in size and without pericardial effusion. The coronary arteries are densely calcified. There are scattered calcified granulomas. The lung bases are otherwise clear noting dependent atelectasis. A small hiatal hernia is noted. The distal esophagus appears circumferentially thick walled. Liver: The unenhanced liver is normal in size, contour, and attenuation. There is no intrahepatic biliary ductal dilatation. A 1.6 cm cyst is noted in the right lobe. Gallbladder: The gallbladder is distended. The wall appears thickened and there is mild pericystic inflammation. Spleen: Normal in size and attenuation. Pancreas: The unenhanced pancreas is mildly atrophic and grossly unremarkable. Adrenal glands: Unremarkable. Kidneys: The unenhanced kidneys are normal in size and without hydronephrosis. There are no renal calculi identified. There is no evidence of contour deforming renal mass lesion. Renal sinus cysts are noted on the left. Abdominal vasculature: The abdominal aorta is normal in course and caliber noting moderate to advanced atherosclerotic calcification. An infrarenal IVC filter is in place. Bowel: There is mild colonic diverticulosis without CT evidence of acute diverticulitis. No bowel obstruction is seen. Duodenal diverticula are noted. The appendix is well-visualized and normal. Peritoneum: There is no intraperitoneal free air or abdominal ascites. There is a fat-containing umbilical hernia. Lymphadenopathy: None. Pelvic viscera: The prostate gland is enlarged and heterogeneous. The bladder is distended. The bladder wall appears mildly thickened and trabeculated suggesting chronic outlet obstruction. There is a small fat-containing right inguinal hernia. Surgical clips are noted along the spermatic cord. Skeletal structures: The skeletal structures are osteopenic. There is mild to moderate lumbosacral spondylosis. No lytic or blastic lesions are seen. Postoperative change is noted in the left proximal femur. IMPRESSION: 1. Suboptimal examination without oral and IV contrast. 2. The gallbladder is distended and appears mildly thick walled with mild surrounding inflammation. Cortical clinically for evidence of acute cholecystitis. This could be further assessed with ultrasound if clinically warranted. 3. The distal esophagus appears circumferentially thick walled. Correlate clinically for evidence of esophagitis. 4. Prostatomegaly with significant bladder distention and evidence of chronic outlet obstruction. 5. Additional findings as above. ACT 112: Negative or not required by law. Electronically signed by: Marcelino Ramirez M.D. 10/08/2021 6:53 AM ULTRASOUND RIGHT UPPER QUADRANT ABDOMEN CLINICAL HISTORY: Abnormal gallbladder on CT. Right upper quadrant abdominal pain. COMPARISON STUDY: Abdominal CT performed earlier the same day 10/07/2021. TECHNIQUE: Real-time, grayscale, and color flow sonography of the right upper quadrant of the abdomen was performed. Images are reviewed in the transverse and longitudinal planes. FINDINGS: Liver: The liver is normal in size and heterogeneous in echotexture. Portions of the left lobe are obscured by overlying bowel gas. There is no intrahepatic biliary ductal dilatation. The main portal vein is patent. Gallbladder: The gallbladder is distended and contains biliary sludge. No definite shadowing gallstones are identified. The gallbladder wall is top normal in thickness 2 minimally thickened measuring up to 3 mm. No pericholecystic fluid is identified. A sonographic Burns's sign is reportedly present. The common bile duct measures up to 0.4 cm in diameter. Pancreas: Visualized portions of the pancreatic head are normal in appearance. The majority of the pancreas was not visualized due to overlying bowel gas. The splenic vein is patent. Right kidney: Survey images of the right kidney demonstrate mild cortical atrophy. Echotexture is normal. There is no hydronephrosis. Ascites: None. IMPRESSION: 1. Distended gallbladder with a mildly thickened wall and biliary sludge in the region of the neck. A positive Burns sign is reportedly present, and findings are suspicious for acute cholecystitis. Surgical consultation is advised. 2. There is no intra or extrahepatic biliary ductal dilatation. ACT 112: Negative or not required by law. Electronically signed by: Marcelino Ramirez M.D. 10/08/2021 6:56 AM PG Care Time/CCT Total # of Minutes Spent Total Time Spent with Patient: Total time spent is greater than 50% in coordination of care (as documented) at patient's floor/unit and/or counseling patient: Coding Level of Care Code 02065 Initial Inpt Care Lvl 1 Diagnoses Acute cholecystitis K81.0
[2021-10-08] MEDS ORDERED: GABAPENTIN 1200MG ALCOHOL WITHDRAWAL LOAD PO STA (07:44)
[2021-10-08] MEDS ORDERED: LORazepam 0.5 MG/1 ML VIAL IV PRN (07:46)
[2021-10-08] MEDS ORDERED: GABAPENTIN 600 MG TAB PO ONE (08:00)
[2021-10-08] MEDS: CHOLECALCIFEROL 1,000 UNITS 25 MCG TAB PO SCH (08:28)
[2021-10-08] MEDS: FOLIC ACID 1 MG in SYRINGE 9.8 ML IV SCH (08:28)
[2021-10-08] MEDS: THIAMINE HCL 100 MG in SYRINGE 9 ML IV SCH (08:28)
[2021-10-08] MEDS: PHENYTOIN SODIUM ER 100 MG CAP PO SCH (08:29)
[2021-10-08] MEDS: SODIUM CHLORIDE 1 GM TABLET PO SCH (08:29)
[2021-10-08] MEDS: SODIUM CHLORIDE 0.9% 1000ML 1,000 ML IV SCH ×2 (08:46→21:02)
[2021-10-08] MEDS ORDERED: ATORVASTATIN 40 MG TAB PO SCH (09:00)
[2021-10-08] MEDS: PIPERACILLIN/TAZOBACTAM 3.375 GM in DEXTROSE 5% 100 ML IV SCH ×2 (10:14→18:05)
--- NOTE | 2021-10-08 10:26 | Electrocardiogram Report ---
Test Reason : Blood Pressure : / mmHG Vent. Rate : 082 BPM Atrial Rate : 082 BPM P-R Int : 208 ms QRS Dur : 090 ms QT Int : 380 ms P-R-T Axes : 078 049 059 degrees QTc Int : 443 ms Normal sinus rhythm with sinus arrhythmia Normal ECG When compared with ECG of 13-OCT-2020 16:59, No significant change was found Confirmed by Lv Parsons ([id number]) on 10/08/2021 10:26:05 AM Referred By: REFERRED SELF Confirmed By:Lv Parsosn
--- NOTE | 2021-10-08 13:39 | Anesthesiology Consultation ---
Date of Service October 08, 2021 Assessment & Plan (1) Encounter for pre-operative examination: Chart Review Chart Review: Acceptable Risk for Surgery History Surgery Operation Date: 10/08/21 14:15 Proposed Procedures p Laparoscopic Cholecystectomy - Juan Schofield DO, FACS Height/Weight Height: 5 ft 9 in Weight: 64.7 kg Allergies Allergy/AdvReac Type Severity Reaction Status Date / Time No Known Allergies Allergy Unknown Verified 10/07/21 23:40 Medications Home Medications Medication Instructions Recorded Confirmed Last Taken atorvastatin 80 mg tablet 80 mg PO DAILY 10/07/21 10/07/21 10/07/21 cholecalciferol (vitamin D3) 25 25 mcg PO DAILY 10/07/21 10/07/21 Unknown mcg (1,000 unit) tablet (Vitamin D3) phenytoin sodium extended 100 mg 400 mg PO DAILY 10/07/21 10/07/21 10/07/21 capsule (Dilantin Extended) sodium chloride 1 gram tablet 2 g PO DAILY 10/07/21 10/07/21 10/07/21 Active Medications Generic Name Dose Route Start Last Admin Trade Name Melinda PRN Reason Stop Dose Admin Piperacillin Sod/Tazobactam 115 mls @ 28.75 mls/hr 10/08/21 10:00 10/08/21 10:14 Sod 3.375 gm/ Dextrose IV 10/18/21 09:59 28.8 mls/hr Q8H MARITO Administration Protocol Sodium Chloride 1,000 mls @ 100 mls/hr 10/08/21 04:52 10/08/21 08:46 Nss 1000ml IV 11/07/21 04:51 100 mls/hr .Q10H MARITO Administration Thiamine HCl 100 mg/ Syringe 10 mls @ 2 mls/min 10/08/21 09:00 10/08/21 08:28 IV 11/07/21 08:59 2 mls/min QAM MARITO Administration Folic Acid 1 mg/ Syringe 10 mls @ 5 mls/min 10/08/21 09:00 10/08/21 08:28 IV 11/07/21 08:59 5 mls/min QAM MARITO Administration Phenytoin Sodium 400 mg 10/08/21 09:00 10/08/21 08:29 Phenytoin Sodium Er 100 Mg Cap PO 11/07/21 08:59 400 mg DAILY MARITO Administration Sodium Chloride 2 gm 10/08/21 09:00 10/08/21 08:29 Sodium Chloride 1 Gm Tablet PO 11/07/21 08:59 2 gm DAILY MARITO Administration Vitamin D 1,000 units 10/08/21 09:00 10/08/21 08:28 Cholecalciferol 1,000 Units 25 Mcg Tab PO 11/07/21 08:59 1,000 units DAILY MARITO Administration Past Medical History Medical History History of head injury History of traumatic brain injury h/o surgery HLD (hyperlipidemia) Seizure disorder SIADH (syndrome of inappropriate ADH production) Past Family History Family History Mother Lung cancer Father Myocardial infarction, Onset Age: 62 Grandfather (Paternal) Myocardial infarction, Onset Age: 50 Other Cancer Coronary heart disease Past Surgical History Surgical History H/O clubfoot correction History of brain surgery 10/05 to TBI after falling from 2 story building off scaffolding in 2001 repair of skull fracture, jaw, cheek, upper orbital and right ear repair Hx of nasal septoplasty Social History Smoking Status: Never smoker Do You Dip or Chew Tobacco: No Hx Alcohol Use: Yes Alcohol type: beer alcohol intake frequency: 0-2 drinks per day Hx Substance Use: No substance use type: does not use Physical Exam Vital Signs Last Vital Signs Temp 37.0 C 10/08/21 07:11 Pulse 81 10/08/21 07:11 Resp 16 10/08/21 07:11 BP 103/66 10/08/21 07:11 Pulse Ox 99 10/08/21 07:11 Testing Laboratory Results 10/08/21 05:45 10/08/21 05:45 Urine Color Yellow 10/07/21 23:50 Urine Appearance Clear (Clear) 10/07/21 23:50 Urine pH 8.0 (4.5-7.5) H 10/07/21 23:50 Ur Specific [place] 1.012 (1.000-1.030) 10/07/21 23:50 Urine Protein Negative (Negative) 10/07/21 23:50 Urine Glucose (UA) Negative (Negative) 10/07/21 23:50 Urine Ketones Negative (Negative) 10/07/21 23:50 Urine Nitrite Negative (Negative) 10/07/21 23:50 Ur Leukocyte Esterase Negative (Negative) 10/07/21 23:50 Electrocardiogram Date: 10/07/21 Findings: + NSR @ (82)
[2021-10-08] MEDS ORDERED: fentaNYL citrate 100 MCG/2 ML VIAL ONE (14:26)
[2021-10-08] MEDS ORDERED: NEOSTIGMINE METHYLSULFATE 1 MG/ML 10ML VIAL ONE (14:28)
[2021-10-08] MEDS ORDERED: BUPIVACAINE 0.5 % 5 MG/1 ML MPF 30ML VIAL ONE (14:28)
[2021-10-08] MEDS ORDERED: PROPOFOL IV EMULSION 10 MG/ML 20 ML VIAL IV ONE (14:28)
[2021-10-08] MEDS ORDERED: ROCURONIUM BROMIDE 10 MG/ML 5 ML VIAL IV ONE (14:28)
[2021-10-08] MEDS ORDERED: GLYCOPYRROLATE 0.2 MG/ML VIAL ONE (14:28)
[2021-10-08] MEDS ORDERED: ONDANSETRON INJ 2 MG/ML 2 ML VIAL ONE (14:28)
[2021-10-08] MEDS ORDERED: LIDOCAINE 2% 2 ML VIAL/AMP(20MG/ML) INFIL ONE (14:28)
[2021-10-08] MEDS ORDERED: ATROPINE SULFATE 0.1 MG/ML 10ML SYR IV PRN (14:32)
[2021-10-08] MEDS ORDERED: fentaNYL citrate 100 MCG/2 ML VIAL IV PRN (14:32)
[2021-10-08] MEDS ORDERED: KETOROLAC TROMETHAMINE 15 MG/ML VIAL IV PRN (14:44)
--- NOTE | 2021-10-08 15:47 | Operative Report ---
PG Post Operative Report Pre & Post Diagnosis Operation Date: 10/08/21 14:15 Pre-Op Diagnosis: Acute cholecystitis Post-Op Diagnosis: Acute cholecystitis I identified the patient and participated in the time-out.: Yes Procedure Operation Date: 10/08/21 14:15 Actual Procedures p Laparoscopic Cholecystectomy(Not Applicable) - Juan Schofield DO, FACS Surgeon Juan Schofield DO, FACS Coin Collector Annabelle Porter Estimated Blood Loss 25 Findings Consistent with Post-Op Diagnosis Acute cholecystitis, gallbladder decompressed to allow for retraction. Critical view of safety obtained, cystic duct and artery doubly clipped and divided. Hemostasis achieved with electrocautery. Specimens Gallbladder Anesthesia Type General Complications none Disposition Accompanied Patient To Recovery: No Disposition: Recovery Room Indications 71-year-old male presented to the emergency department with chief complaint of abdominal pain, CT and ultrasound imaging suggested acute cholecystitis. Plan for laparoscopic cholecystectomy with possible cholangiogram. The risks of the procedure were discussed, all questions were answered, and the patient agreed to proceed with surgery as planned. Description of Procedure The patient was properly identified, consented, and taken to the operating room where he was placed in the supine position. General endotracheal anesthesia was induced. SCDs and a safety belt were placed. Preoperative antibiotics were administered. The patient's abdomen was prepped and draped in the standard sterile fashion. A surgical timeout was performed and all parties were in agreement that this was the correct patient and procedure to be performed and we continued as planned. An incision was made superior and to the left of the umbilicus overlying the rectus muscle and the Veress needle was inserted. Saline drop test confirmed entry into the peritoneum. The abdomen was insufflated with carbon dioxide which the patient tolerated without incident. The abdomen was then entered using the Optiview technique and a 5 mm trocar. The laparoscope was inserted and no damage from initial trocar or Veress needle placement was noted, no gross abnormalities were noted within the 4 quadrants of the abdomen. An 11 mm port was placed in the subxiphoid position and two 5 mm ports were then placed in the right subcostal position. The patient was placed in reverse Trendelenburg position and rotated towards the left. The gallbladder was significantly and acutely inflamed. Omental adhesions were taken down with electrocautery. The dome of the gallbladder was retracted towards the left upper quadrant and the infundibulum was retracted toward the right lower quadrant revealing Calot's triangle. Peritoneal attachments were taken down with electrocautery and blunt dissection. The cystic duct and artery were circumferentially dissected. A window of safety was obtained showing the cystic duct entering the gallbladder with no aberrant structures noted. The cystic duct and artery were doubly clipped and divided. The gallbladder was then lifted off the gallbladder fossa with electrocautery. Bleeding from the gallbladder fossa was controlled with electrocautery. The gallbladder was placed in an Endo Catch bag and removed through the subxiphoid port site. The right upper quadrant was irrigated and hemostasis was found to be good. 5 mm trochars were removed under direct visualization and the abdomen was allowed to collapse. The xiphoid port site fascia was closed with 0 Vicryl suture utilizing the Rick pandya-Josh device The wound was irrigated, and the skin of all ports was closed with 4-0 Monocryl subcuticular sutures. Dermabond was placed over the wounds. The patient was extubated in the operating room and taken to the PACU where he recovered without apparent incident. All sponge, instrument and needle counts were correct at the conclusion of the procedure. The patient tolerated the pr ocedure well. The physician's apartment assistant manager was present and scrubbed for the entirety of the case and was essential in positioning the patient, prepping and draping, retraction and exposure, driving the laparoscope, removal of the gallbladder, closure the incisions, and placement of the dressings. I attest to the content of the Intraoperative Record and any orders documented therein. Any exceptions are noted below.
[2021-10-08] MEDS ORDERED: oxyCODONE HCL IR 5 MG TAB (IMMEDIATE RELEASE) PO PRN ×2 (16:44)
[2021-10-08] MEDS: GABAPENTIN 600 MG TAB PO SCH ×2 (17:51→21:02)
--- NOTE | 2021-10-08 18:07 | Anesthesiology Progress Note ---
Date of Service October 08, 2021 Anesthesia Post Procedure Vital Signs Vital Signs: Temp Pulse Pulse Pulse Pulse Resp BP 10/08/21 17:56 36.8 C 71 16 10/08/21 17:15 36.5 C 67 16 10/08/21 16:45 36.4 C L 75 16 10/08/21 16:30 36.5 C 76 16 10/08/21 16:20 66 16 10/08/21 16:10 71 16 10/08/21 16:00 36.4 C L 96 H 18 10/08/21 07:11 37.0 C 81 16 10/08/21 05:05 36.7 C 86 18 10/08/21 04:57 36.7 C 86 18 10/08/21 04:35 36.7 C 86 18 10/08/21 03:00 74 16 10/08/21 01:48 85 18 10/08/21 00:18 92 H 20 10/07/21 23:08 88 88 20 10/07/21 22:25 36.9 C 88 20 141/97 H BP Pulse Ox 10/08/21 17:56 142/80 H 96 10/08/21 17:15 131/72 97 10/08/21 16:45 126/74 98 10/08/21 16:30 120/70 98 10/08/21 16:20 122/71 100 10/08/21 16:10 123/71 100 10/08/21 16:00 130/77 100 10/08/21 07:11 103/66 99 10/08/21 05:05 130/76 97 10/08/21 04:57 130/76 97 10/08/21 04:35 130/76 97 10/08/21 03:00 116/74 94 10/08/21 01:48 112/71 96 10/08/21 00:18 127/80 97 10/07/21 23:08 134/85 95 10/07/21 22:25 97 Transfer of Care Handoff Completed per policy Notes Mental Status: alert / awake / arousable Patient Amnestic to Procedure: Yes Nausea / Vomiting: adequately controlled Pain: adequately controlled Airway Patency, RR, SpO2: stable & adequate BP & HR: stable & adequate Hydration State: stable & adequate Anesthetic Complications: no major complications apparent
--- NOTE | 2021-10-08 18:09 | Hospitalist Progress Note ---
Date of Service October 08, 2021 Assessment & Plan (1) Acute cholecystitis: Plan: s/p lap rahul today Clears per surgery continue zosyn (2) Chest pain: Plan: Will move to telemetry unit for monitoring EKG negative for ST elevation or depression CXR ordered Trend trop x 3 (3) HLD (hyperlipidemia): Plan: hold statin for now, can resume at discharge (4) Seizure disorder: Plan: Dilantin 400mg daily (5) SIADH (syndrome of inappropriate ADH production): Plan: sodium chloride 2gm daily (6) DVT prophylaxis: Plan: SCDs for now (7) Alcohol abuse: Plan: Gabapentin taper Ativan PRN Admission and Anticipated Discharge Date Admission Date: October 08, 2021 Subjective Patient admitted for right upper quadrant pain found to have acute cholecystitis OR today for laparoscopic cholecystectomy Post operative, in room then complained of chest pain and shortness of breath. "I think I pulled a muscle or something" Physical Exam Physical Exam: Chronically ill appearing, no acute distress, non toxic Respiratory: diminished breath sounds bilaterally, no audible wheezing/rhonchi Cardiovascular: regular rate and rhythm, no murmurs/rubs/gallops Gastrointestinal (Abdomen): soft, hypoactive Musculoskeletal: thin, no edema Neurologic: right eye blindness, awake, alert, spontaneously moving extremities Results & Data Results & Data ([facility]) Vital Signs (Past 12 Hours) Vital Signs Temp Pulse Pulse Pulse Resp BP Pulse Ox 10/08/21 17:56 36.8 C 71 16 142/80 H 96 10/08/21 17:15 36.5 C 67 16 131/72 97 10/08/21 16:45 36.4 C L 75 16 126/74 98 10/08/21 16:30 36.5 C 76 16 120/70 98 10/08/21 16:20 66 16 122/71 100 10/08/21 16:10 71 16 123/71 100 10/08/21 16:00 36.4 C L 96 H 18 130/77 100 10/08/21 07:11 37.0 C 81 16 103/66 99 Laboratory Results Short CBC 10/07/21 10/08/21 Range/Units 22:30 05:45 WBC 14.17 H 9.85 (4.8-10.8) K/uL Hgb 15.4 14.9 (14.0-18.0) g/dL Hct 43.5 43.2 (42-52) % Plt Count 134 225 D (130-400) K/uL BMP 10/07/21 10/08/21 22:55 05:45 Sodium 132 L 135 L Potassium 4.2 3.9 Chloride 97 L 101 Carbon Dioxide 28 27 BUN 11 9 Creatinine 0.71 0.68 Glucose 98 100 H Calcium 8.9 8.9 Cardiac Enzymes 10/07/21 Range/Units 22:55 Troponin I < 0.03 (0-0.04) ng/ml Liver Function 10/07/21 Range/Units 22:55 Total Bilirubin 0.4 (0.2-1.0) mg/dl AST 20 (13-39) U/L ALT 15 (7-52) U/L Alkaline Phosphatase 79 (34-104) U/L Albumin 4.0 (3.4-5.0) gm/dl Urine 10/07/21 Range/Units 23:50 Urine Color Yellow Urine Appearance Clear (Clear) Urine pH 8.0 H (4.5-7.5) Ur Specific [place] 1.012 (1.000-1.030) Urine Protein Negative (Negative) Urine Glucose (UA) Negative (Negative) Medications Administered Current Inpatient Medications Acetaminophen (Acetaminophen 325 Mg Tab) 650 mg PO Q4H PRN PRN Reason: pain/fever Stop: 11/07/21 04:51 Gabapentin (Gabapentin 600 Mg Tab) 600 mg PO Q6H MARITO Stop: 10/08/21 21:01 Last Admin: 10/08/21 17:51 Dose: 600 mg Documented by: Gabapentin (Gabapentin 600 Mg Tab) 600 mg PO Q8H MARITO Stop: 10/09/21 19:46 Gabapentin (Gabapentin 600 Mg Tab) 600 mg PO Q12H MARITO Stop: 10/10/21 19:46 Gabapentin (Gabapentin 600 Mg Tab) 600 mg PO Q24H MARITO Stop: 10/11/21 19:46 Hydromorphone HCl (Hydromorphone Inj 0.5 Mg/0.5 Ml Syr) 0.25 mg IV Q2H PRN PRN Reason: Pain Stop: 10/22/21 16:43 Hydromorphone HCl (Hydromorphone Inj 0.5 Mg/0.5 Ml Syr) 0.5 mg IV Q2H PRN PRN Reason: Pain Stop: 10/22/21 16:43 Lorazepam (Ativan) 3 mg in 6 mls @ 4 mls/min IV ONCE PRN; Protocol PRN Reason: EtOH Withdrawl AWSS Score >=10 Stop: 11/07/21 04:51 Piperacillin Sod/Tazobactam (Sod 3.375 gm/ Dextrose) 115 mls @ 28.75 mls/hr IV Q8H [facility]; Protocol Stop: 10/18/21 09:59 Last Admin: 10/08/21 18:05 Dose: 28.8 mls/hr Documented by: Sodium Chloride (Nss 1000ml) 1,000 mls @ 100 mls/hr IV .Q10H [facility] Stop: 11/07/21 04:51 Last Infusion: 10/08/21 16:51 Dose: 100 mls/hr Documented by: Thiamine HCl 100 mg/ Syringe 10 mls @ 2 m[facility] Stop: 11/07/21 08:59 Last Admin: 10/08/21 08:28 Dose: 2 mls/min Documented by: Folic Acid 1 mg/ Syringe 10 mls @ 5 mls/[facility] Stop: 11/07/21 08:59 Last Admin: 10/08/21 08:28 Dose: 5 mls/min Documented by: Lorazepam (Ativan) 1 mg in 2 mls @ 2 mls/min IV UD PRN; Protocol PRN Reason: EtOH Withdrawl AWSS Score 6,7 Stop: 11/07/21 04:51 Lorazepam (Ativan) 2 mg in 4 mls @ 4 mls/min IV UD PRN; Protocol PRN Reason: EtOH Withdrawl AWSS Score 8,9 Stop: 11/07/21 04:51 Lorazepam (Ativan) 0.5 mg in 1 mls @ 1 mls/min IV Q4H PRN PRN Reason: anxiety Stop: 11/07/21 07:45 Miscellaneous Information (Piperacill/Tazobac Consult Active) 1 ea N/A UD PRN PRN Reason: Consult Stop: 11/07/21 04:51 Ondansetron HCl (Ondansetron Inj 2 Mg/Ml 2 Ml Vial) 4 mg IV Q6H PRN PRN Reason: Nausea Stop: 11/07/21 04:51 Oxycodone HCl (Oxycodone Hcl Ir 5 Mg Tab (Immediate Release)) 5 mg PO Q4H PRN PRN Reason: Pain Stop: 10/22/21 16:43 Oxycodone HCl (Oxycodone Hcl Ir 5 Mg Tab (Immediate Release)) 10 mg PO Q4H PRN PRN Reason: Pain Stop: 10/22/21 16:43 Phenytoin Sodium (Phenytoin Sodium Er 100 Mg Cap) 400 mg PO DAILY MARITO Stop: 11/07/21 08:59 Last Admin: 10/08/21 08:29 Dose: 400 mg Documented by: Sodium Chloride (Sodium Chloride 1 Gm Tablet) 2 gm PO DAILY MARITO Stop: 11/07/21 08:59 Last Admin: 10/08/21 08:29 Dose: 2 gm Documented by: Vitamin D (Cholecalciferol 1,000 Units 25 Mcg Tab) 1,000 units PO DAILY MARITO Stop: 11/07/21 08:59 Last Admin: 10/08/21 08:28 Dose: 1,000 units Documented by: Critical Care Time 35 minutes. At least 50% of time was spent on direct patient encounter. 50% of time was spent on coordination of care
--- NOTE | 2021-10-08 18:48 | XRay Report ---
SINGLE VIEW CHEST CLINICAL HISTORY: Dyspnea FINDINGS: An AP, portable, upright chest radiograph is compared to study dated 10/13/2020. The examina tion is degraded by portable technique and patient rotation. The cardiomediastinal silhouette is un remarkable. Scarring/atelectasis is noted at the lung bases. There are scattered calcified granulomas . No airspace consolidation or large pleural effusion is identified. No pneumothorax is seen. The ske letal structures are osteopenic. The bony thorax is grossly intact. Question intraperitoneal free air below the left hemidiaphragm. IMPRESSION: 1. Bibasilar atelectasis with no acute cardiopulmonary abnormality. 2. Question intraperitoneal free air below the left hemidiaphragm, likely related to today's surgery. Clinical correlation will be required. ACT 112: Negative or not required by law. Electronically signed by: Marcelino Ramirez M.D. 10/08/2021 6:47 PM
[2021-10-09] MEDS: GABAPENTIN 600 MG TAB PO SCH ×3 (03:08→19:34)
[2021-10-09] MEDS: PIPERACILLIN/TAZOBACTAM 3.375 GM in DEXTROSE 5% 100 ML IV SCH ×3 (03:10→17:54)
[2021-10-09] MEDS ORDERED: SODIUM CHLORIDE 0.9% 500 ML IV SCH (04:15)
[2021-10-09] MEDS: SODIUM CHLORIDE 0.9% 1000ML 1,000 ML IV SCH ×3 (05:48→16:23)
[2021-10-09 08:04] LABS: Basophils # (auto) 0.02 K/uL (0-0.2); Basophils % (auto) 0.2 %; Eosinophils # (auto) 0.01 K/uL (0-0.5); Eosinophils % (auto) 0.1 %; Hematocrit (blood only) 35.4 % (42-52); Immature Granulocytes # (auto) 0.01 K/uL (0.00-0.02); Immature Granulocytes % (auto) 0.1 %; Lymphocytes # (auto) 1.67 K/uL (1.2-3.4); Lymphocytes % (auto) 19.9 %; Mean Corpuscular Hemoglobin 31.7 pg (25-34); Mean Corpuscular Hgb Conc 33.9 g/dL (32-36); Mean Corpuscular Volume 93.7 fL (80-100); Mean Platelet Volume 8.2 fL (7.4-10.4); Monocytes # (auto) 0.97 K/uL (0.11-0.59); Monocytes % (auto) 11.6 %; Neutrophils # (auto) 5.71 K/uL (1.4-6.5); Neutrophils % (auto) 68.1 %; Platelet Count 163 K/uL (130-400); RDW Coefficient of Variation 13.3 % (11.5-14.5); RDW Standard Deviation 45.5 fL (36.4-46.3); Red Blood Count 3.78 M/uL (4.7-6.1); White Blood Count 8.39 K/uL (4.8-10.8)
[2021-10-09 08:05] LABS: Troponin I < 0.03 ng/ml (0-0.04)
[2021-10-09 08:12] LABS: Anion Gap 5 (3-11); BUN Creatinine Ratio 10.3 (10-20); Blood Urea Nitrogen 7 mg/dl (6-23); Calcium 7.6 mg/dl (8.5-10.1); Carbon Dioxide 25 mmol/L (21-32); Chloride 107 mmol/L (98-107); Creatinine Clr Calc Pharmacy 94.8 ml/min; Est GFR (African American) 112.1 ml/min; Est GFR (Non-African American) 96.8 ml/min; Glucose 113 mg/dl (70-99(Fasting)); Potassium 3.5 mmol/L (3.5-5.1); Sodium 137 mmol/L (136-145)
[2021-10-09] MEDS: FOLIC ACID 1 MG in SYRINGE 9.8 ML IV SCH (08:46)
[2021-10-09] MEDS: PHENYTOIN SODIUM ER 100 MG CAP PO SCH (08:46)
[2021-10-09] MEDS: SODIUM CHLORIDE 1 GM TABLET PO SCH (08:46)
[2021-10-09] MEDS: CHOLECALCIFEROL 1,000 UNITS 25 MCG TAB PO SCH (08:46)
[2021-10-09] MEDS: THIAMINE HCL 100 MG in SYRINGE 9 ML IV SCH (08:46)
--- NOTE | 2021-10-09 08:50 | Surgery Progress Note ---
Date of Service October 09, 2021 Assessment & Plan (1) Acute cholecystitis: Plan: POD 1 lap rahul advance diet as pb labs stable seen with Dr. Chandu CANSECO for d/c from surgical standpoint Admission and Anticipated Discharge Date Admission Date: October 08, 2021 Supervising Physician Co-Signing Physician Notes pnt S&E, agree with above. POD#1 lap rahul. Appears to be withdrawing from alcohol. incisions w/o infection, abd soft, nt. hct down post op, not unexpected. diet as tolerated, okay to d/c from surgery standpoint. f/u in 2 weeks in surgery clinic. Subjective transferred to PCU for shoulder pain last evening somnolent this AM Physical Exam Gastrointestinal (Abdomen): Inspection/Auscultation: + abdominal surgical incision (dry); abdomen not distended Percussion/Palpation: abdomen soft Results & Data ([facility]) Vital Signs (Past 12 Hours) Vital Signs Temp Pulse Pulse Pulse Pulse Resp BP 10/09/21 06:37 98 H 10/09/21 06:32 36.9 C 91 H 18 111/71 10/09/21 04:07 37.6 C H 91 H 16 95/59 L 10/09/21 01:19 119 H 10/09/21 00:00 37.4 C 111 H 16 102/63 10/08/21 23:45 36.6 C 114 H 18 106/70 10/08/21 22:41 36.9 C 113 H 16 109/70 10/08/21 21:57 39.6 C H 118 H 18 119/76 Pulse Ox 10/09/21 06:37 10/09/21 06:32 94 10/09/21 04:07 95 10/09/21 01:19 10/09/21 00:00 95 10/08/21 23:45 96 10/08/21 22:41 93 10/08/21 21:57 95 PG Care Time/CCT Total # of Minutes Spent Total Time Spent with Patient: Total time spent is greater than 50% in coordination of care (as documented) at patient's floor/unit and/or counseling patient: Coding Level of Care Code None Diagnoses Acute cholecystitis K81.0
--- NOTE | 2021-10-09 09:19 | Electrocardiogram Report ---
Test Reason : Blood Pressure : / mmHG Vent. Rate : 067 BPM Atrial Rate : 067 BPM P-R Int : 198 ms QRS Dur : 090 ms QT Int : 422 ms P-R-T Axes : 061 045 057 degrees QTc Int : 445 ms Normal sinus rhythm Low voltage QRS Borderline ECG When compared with ECG of 07-OCT-2021 22:56, No significant change was found Confirmed by Lv Parsons ([id number]) on 10/09/2021 9:19:07 AM Referred By: REFERRED SELF Confirmed By:Lv Parsons
--- NOTE | 2021-10-09 11:02 | Hospitalist Progress Note ---
Date of Service October 09, 2021 Assessment & Plan (1) Acute cholecystitis: Plan: -s/p lap rahul 2/5 -tolerated clears, advance diet as tolerated per surgery -will discontinue zosyn after today, no evidence of residual infection--remains afebrile x 24 hours, normalized WBC (2) Chest pain: Plan: Chest pain and shortness of breath yesterday after coming back from OR EKG no changes CXR shows atelectasis Troponin neg x3 (3) HLD (hyperlipidemia): Plan: hold statin for now, can resume at discharge (4) Seizure disorder: Plan: Dilantin 400mg daily (5) SIADH (syndrome of inappropriate ADH production): Plan: sodium chloride 2gm daily (6) DVT prophylaxis: Plan: SCDs for now (7) Alcohol abuse: Plan: Counseled on need for alcohol cessation (8) Alcohol withdrawal delirium: Plan: continue IV thiamine, folic acid, MVT continue gabapentin taper, ativan PRN Plan: Patient is not medically stable for discharge due to alcohol withdrawal. Attempted to call , Anna, but no answer. Admission and Anticipated Discharge Date Admission Date: October 08, 2021 Subjective Overnight received 2mg IV ativan for hallucinations. Alcohol withdrawal score of 8 This morning was very somnolent but is more awake now Patient feels well, he is agreeable to remaining in the hospital for further management of withdrawal Physical Exam Physical Exam: appears sweaty, disheveled, drowsy Respiratory: breathing comfortably on room air, no wheezing/rhonchi/rales Cardiovascular: tachycardic, no murmurs/rubs/gallopw Gastrointestinal (Abdomen): soft, non distended, non tender Musculoskeletal: no edema, thin Skin: abdominal incisions are clean/dry/intact Neurologic: drowsy but arousable, chronic right eye blindness Results & Data Results & Data ([facility]) Vital Signs (Past 12 Hours) Vital Signs Temp Pulse Pulse Pulse Resp BP Pulse Ox 10/09/21 08:00 36.7 C 96 H 93 H 16 125/77 95 10/09/21 06:37 98 H 10/09/21 06:32 36.9 C 91 H 18 111/71 94 10/09/21 04:07 37.6 C H 91 H 16 95/59 L 95 10/09/21 01:19 119 H 10/09/21 00:00 37.4 C 111 H 16 102/63 95 10/08/21 23:45 36.6 C 114 H 18 106/70 96
[2021-10-09] MEDS: HEPARIN SOD 5,000 UNIT/0.5 ML VIAL SQ SCH (19:33)
[2021-10-10] MEDS: SODIUM CHLORIDE 0.9% 1000ML 1,000 ML IV SCH (02:30)
[2021-10-10] MEDS: PIPERACILLIN/TAZOBACTAM 3.375 GM in DEXTROSE 5% 100 ML IV SCH (02:31)
[2021-10-10] MEDS ORDERED: GABAPENTIN 600 MG TAB PO SCH (07:45)
[2021-10-10 07:50] LABS: Basophils # (auto) 0.01 K/uL (0-0.2); Basophils % (auto) 0.1 %; Eosinophils # (auto) 0.08 K/uL (0-0.5); Eosinophils % (auto) 1.1 %; Hematocrit (blood only) 34.5 % (42-52); Hemoglobin 11.8 g/dL (14.0-18.0); Immature Granulocytes # (auto) 0.01 K/uL (0.00-0.02); Immature Granulocytes % (auto) 0.1 %; Lymphocytes # (auto) 1.92 K/uL (1.2-3.4); Lymphocytes % (auto) 26.7 %; Mean Corpuscular Hgb Conc 34.2 g/dL (32-36); Mean Corpuscular Volume 93.5 fL (80-100); Mean Platelet Volume 8.3 fL (7.4-10.4); Monocytes # (auto) 0.64 K/uL (0.11-0.59); Monocytes % (auto) 8.9 %; Neutrophils # (auto) 4.53 K/uL (1.4-6.5); Neutrophils % (auto) 63.1 %; Platelet Count 158 K/uL (130-400); RDW Coefficient of Variation 12.8 % (11.5-14.5); RDW Standard Deviation 43.9 fL (36.4-46.3); Red Blood Count 3.69 M/uL (4.7-6.1); White Blood Count 7.19 K/uL (4.8-10.8)
[2021-10-10 08:13] LABS: Calcium 7.9 mg/dl (8.5-10.1); Creatinine Clr Calc Pharmacy 96.2 ml/min; Est GFR (African American) 112.8 ml/min; Est GFR (Non-African American) 97.4 ml/min; Magnesium 1.8 mg/dl (1.7-2.4); Phosphorus 2.2 mg/dl (2.5-4.9); Potassium 3.4 mmol/L (3.5-5.1)
[2021-10-10] MEDS: HEPARIN SOD 5,000 UNIT/0.5 ML VIAL SQ SCH ×2 (08:37→08:43)
[2021-10-10] MEDS: SODIUM CHLORIDE 1 GM TABLET PO SCH (08:37)
[2021-10-10] MEDS: PHENYTOIN SODIUM ER 100 MG CAP PO SCH (08:37)
[2021-10-10] MEDS: CHOLECALCIFEROL 1,000 UNITS 25 MCG TAB PO SCH (08:37)
[2021-10-10] MEDS: THIAMINE HCL 100 MG in SYRINGE 9 ML IV SCH (08:38)
[2021-10-10] MEDS: FOLIC ACID 1 MG in SYRINGE 9.8 ML IV SCH (08:38)
[2021-10-10] MEDS ORDERED: FOLIC ACID 1 MG TAB PO SCH (09:00)
[2021-10-10] MEDS ORDERED: MULTIVITAMIN TAB PO SCH (09:00)
--- NOTE | 2021-10-10 11:26 | Surgery Progress Note ---
Date of Service October 10, 2021 Assessment & Plan (1) Acute cholecystitis: Plan: POD 2 lap rahul seen with Dr. Chandu CANSECO for d/c from surgical standpoint Admission and Anticipated Discharge Date Admission Date: October 08, 2021 Supervising Physician Co-Signing Physician Notes pnt S&E, agree with above. POD#2 lap rahul. Appears to be recovering from DT"s. incisions w/o infection, abd soft, nt. hct stable. diet as tolerated, okay to d/c from surgery standpoint. f/u in 2 weeks in surgery clinic. Subjective tolerating diet, minimal pain Physical Exam Gastrointestinal (Abdomen): Inspection/Auscultation: + abdominal surgical incision (clean, dry); abdomen not distended Percussion/Palpation: abdomen soft Results & Data ([facility]) Vital Signs (Past 12 Hours) Vital Signs Temp Pulse Pulse Resp BP Pulse Ox 10/10/21 07:55 37.2 C 90 18 143/77 H 96 10/10/21 04:27 37.2 C 80 20 120/74 93 PG Care Time/CCT Total # of Minutes Spent Total Time Spent with Patient: Total time spent is greater than 50% in coordination of care (as documented) at patient's floor/unit and/or counseling patient: Coding Level of Care Code None Diagnoses Acute cholecystitis K81.0
--- NOTE | 2021-10-10 11:34 | Discharge Summary ---
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 Comes because of abdominal pain. The patient is having right side abdominal pain for the last 4 days, but the last 2 days it got worse and today he has vomited a couple of times, that is why he came to the ER. Denies any fever or chills. Normal bowel and bladder movements. No chest pain, no shortness of breath, no cough, no headache, no blurred visions, no earache, no runny nose, no sore throat. Currently, resting comfortably and hemodynamically stable. Principal Diagnosis Acute cholecystitis Alcohol Abuse Alcohol withdrawal with delirium Discharge Exam Awake, alert, pleasant, cooperative. No tremors, no tremulousness. Breathing comfortably on room air. RRR no murmurs/rubs/gallops. Tolerating diet Alcohol withdrawal score 1. Has not required IV ativan in past 24 hours Discharge Data Allergies Allergy/AdvReac Type Severity Reaction Status Date / Time No Known Allergies Allergy Unknown Verified 10/07/21 23:40 Consultations 10/08/21 01:47 ED Decision to Admit Stat 10/08/21 08:00 Consult General Surgery Routine Procedures Performed Operation Date: 10/08/21 14:15 Actual Procedures p Laparoscopic Cholecystectomy(Not Applicable) - Juan Schofield DO, FACS Ordered Studies 10/07/21 22:36 CT abd pelvis wo con Urgent 10/08/21 00:00 gallbladder Urgent Hospital Course (1) Acute cholecystitis: -s/p lap rahul 2/5 -received zosyn pre and post operatively. No evidence of sepsis or residual infection. (2) Chest pain: Post operatively had substernal chest pain CXR, EKG, troponin were all normal (3) HLD (hyperlipidemia): Statin held in the hospital, resume at discharge LFTs remains stable (4) Seizure disorder: continued on Dilantin 400mg daily (5) SIADH (syndrome of inappropriate ADH production): continued on sodium chloride 2gm daily Na has remained stable (6) DVT prophylaxis: SCDs for now (7) Alcohol abuse: Counseled on need for alcohol cessation . Patient not interested in AA or rehab (8) Alcohol withdrawal delirium: Was placed on gabapentin taper while in the hospital Received 1 dose IV ativan 2mg 2/5 overnight. No symptoms of withdrawal at time of discharge. Has not required any IV ativan within 24 hours prior to discharge Discharged on thiamine, folic acid and MVT Patient will be discharged home. He is medically stable. Tolerating a diet. Passing flatus. Ambulating without difficulty. No signs or symptoms of alcohol withdrawal currently. Total Time Total Time Spent Total Time Spent (In Minutes): 35 Discharge Plan Discharge Items Patient Disposition: Home - Self-Care Reason For Visit: ABDOMINAL PAIN Discharge Diagnosis: acute cholecystitis Condition on Discharge: Good Health Concerns: Alcohol cessation counseling Activity: Per Instructions section Lifting: No more than 10 pounds Bathing Comment: may shower; no soaking in tubs/pools Exercise/Sports: Wait until after follow-up appointment Driving/Machine Use: no driving while taking narcotics for pain Non-emergency contact: Primary Care Provider and Surgeon Call non-emergency contact if: you have any medication questions, your symptoms worsen, your pain is not controlled, your pain is worsening, you have a fever, your temperature is above 101.5, your wound has increased redness, your wound has increased drainage and your wound pain has increased Follow-up/Referrals: Juan Schofield DO, FACS [Physician] - (Please call to schedule follow up in clinic within 2 weeks) Johnnie Vásquez MD [Primary Care Provider] - Diet: Low Fat Addtl Attending Provider Instructions: You were admitted for abdominal pain and found to have an infected gallbladder You had your gallbladder removed 2/5 successfully While in the hospital, you experienced alcohol withdrawal which has since resolved Please speak with your family doctor about alcohol cessation strategies and consider AA meetings Pending Studies at Discharge: Yes Studies:: surgical pathology Stand-Alone Forms: [employer], Smoking Cessation Medications and DC Order Prescriptions: New oxycodone-acetaminophen [Percocet] 5-325 mg tablet 1 - 2 tab PO Q4H PRN (Reason: pain, initial therapy, max 6 daily) Qty: 15 RF: 0 folic acid 1 mg Tablet 1 mg PO QAM 30 Days Qty: 30 RF: 0 multivitamin with folic acid [Daily-Lucia (with folic acid)] 400 mcg Tablet 1 tab PO QAM 30 Days Qty: 30 RF: 0 thiamine HCl (vitamin B1) 100 mg tablet 100 mg PO DAILY Qty: 30 RF: 0 Continued atorvastatin 80 mg tablet 80 mg PO DAILY RF: 0 sodium chloride 1 gram tablet 2 g PO DAILY RF: 0 phenytoin sodium extended [Dilantin Extended] 100 mg capsule 400 mg PO DAILY RF: 0 cholecalciferol (vitamin D3) [Vitamin D3] 25 mcg (1,000 unit) Tablet 25 mcg PO DAILY RF: 0 Discharge Orders: Discharge Order (Routine); Ordered 10/10/21 Ordered By: Chetan Bhagat/Other Patient Handouts: Cholecystectomy, Alcoholism Resources Admission Data Admit Date/Time: 10/08/21 03:39 Attending Provider: Chetan Aguillon Admit Provider: Elpidio Palacio Primary Care Provider: Johnnie Vásquez Other Providers: Issa Schultz ; Elpidio Palacio ; Hugo Roldan ; John Cohen ; Jenny De Oliveira ; Rachana Quijano ; Jovan Forrester ; Matty Loco ; Ana Ortiz ; Amy Carrillo ; Julio César Voss Jr ; Juan Melton ; Maurizio Veras ; Maegan Moody
[2021-10-11] MEDS ORDERED: GABAPENTIN 600 MG TAB PO SCH (19:45)
== END 2021-10-10 15:54 | disposition home or self-care (01) | DRG 418 ==
LOC: ED 22:17 → SUATTDRO 10-08 03:39 → 3W 10-08 03:39 → 2S 10-08 17:47